=== PATIENT | female | born 1945 | race Caucasian/White ===

== ENCOUNTER → 2019-04-06 06:16 | Outpatient (CLI) | payer MEDICARE, MEDICAID, SELFPAY ==
--- NOTE | 2019-04-06 | CA_ITS ---
APPROVED REPORT Exam: Pharmacologic Technologist: kwan hernandez, Ht: 5 ft 1 in Wt: 110 lbs BSA: 1.47 m2 HR: 67 bpm BP: 139/67 mmHg Rhythm: NSR Indications: SOB, Fatigue Medical History Medications: Clonidine,,,,, Simvastatin,,,,, Asa,,,,, Carvedilol,,,,, Norvasc,,,,, Plavix,,,,, OmPERAZOLE,,,,, Stress Test Details Test: LEXISCAN HR Resting HR: 71 bpm Max Heart Rate (APMHR): 147 bpm Max HR Achieved: 105 bpm Target HR (85% APMHR): 124 bpm % of APMHR: 71 Recovery HR: 98 bpm BP Resting BP: 139/67 mmHg Max BP: 156/74 mmHg Recovery BP: 138.0/72.0 mmHg ECG Clinical Exercise duration: 04:03 min Highest Stage Achieved: Exercise capacity: 1.0 METs Stress ECG Conclusion SYMPTOMS: SOA AND MALAIAE,BUT NO CHEST PAIN. NO ARRHYTHMIAS/ECTOPY. NO SIGNIFICANT ST-T CHANGES. UNREMARKABLE LEXISCAN STRESS. MYOVIEW IMAGES REPORTED SEPARATELY. Electronically signed by : Elio Shine, 04/12/2019 11:42:20
--- NOTE | 2019-04-06 06:32 | NM_ITS ---
APPROVED REPORT Exam: Nuclear Stress Test NM EXAM: Myocardial Perfusion REST/STRESS Imaging Protocol: Rest Tc-99m/Stress Tc-99m 1 day Resting Data Rest SPECT myocardial perfusion imaging was performed in supine position 30 minutes following the intravenous injection of 10.88 mCi of tc99 Time of rest injection: 0643 The images were gated to evaluate regional wall motion and calculate left ventricular ejection fraction. Administration Route: IV Administration Site: Left AC Pharmacologic Stress Pharmacologic stress test was performed by injecting Regadenoson 0.4 mg IV push followed by the intravenous injection of 31.1 mCi of Tc-99m Tetrofosmin. Time of stress injection: 0820 Administration Route: IV Administration Site: Left AC Heart Rate at time of stress injection: 96 bpm. Gated Stress SPECT was performed 45 minutes after stress injection. The images were gated to evaluate regional wall motion and calculate left ventricular ejection fraction. Nuclear Conclusion Uniform myocardial activity with both stress and rest gated images calculated ejection fraction of 62% with normal wall motion No scintigraphic evidence of myocardial ischemia with normal ejection fraction and normal wall motion Electronically signed by : Elio Shine, 04/07/2019 13:29:39
--- NOTE | 2019-04-06 09:53 | HMH.ITSHM ---
Current Home Medications as stated by this patient Cris Delgado or advertising account representative. [] plavix norvasc omeprazole carvedilol asa simvastatin clonidine
== END ==
PROVIDERS: PCP Internal Medicine Adolescent Medicine; Visit Provider Internal Medicine Adolescent Medicine
DX: R06.09 Other forms of dyspnea (principal)
CPT/HCPCS: 78452; 93017; A9502; J2785

== ENCOUNTER → 2019-08-01 14:13 | Outpatient (CLI) | payer MEDICARE, MEDICAID, SELFPAY ==
--- NOTE | 2019-08-01 14:18 | CA_ITS ---
APPROVED REPORT Project Controls Specialist: CT Laterality: Bilateral Study Quality: Fair Indications: HEADACHE, CVA Surgery/Intervention Endarterectomy: right Doppler Spectral Velocity Analysis ECA (R) 69.00/1.60 cm/s ECA (L) 151.70/151.70 cm/s dICA (R) 77.10/25.70 cm/s dICA (L) 80.50/19.70 cm/s Chaitanya (R) 62.30/19.30 cm/s Chaitanya (L) 71.10/21.40 cm/s pICA (R) 62.00/18.70 cm/s pICA (L) 52.30/12.00 cm/s dCCA (R) 157.60/17.60 cm/s dCCA (L) 69.30/11.60 cm/s pCCA (R) 157.60/15.30 cm/s pCCA (L) 75.10/10.30 cm/s Vert (R) 68.90/15.80 cm/s Vert (L) 61.00/14.80 cm/s Conclusion Duplex evaluation demonstrates stenosis of the right proximal internal carotid artery <20% with PSV <140 cm/sec, EDV <100 cm/sec, and IC/CC Ratio <4.0. Duplex evaluation demonstrates stenosis of the left proximal internal carotid artery in the range of 20-49% with PSV <140 cm/sec, EDV <100 cm/sec, and IC/CC Ratio <4.0. Duplex evaluation demonstrates antegrade flow of the bilateral Vertebral Arteries. Electronically signed by : William Hung MD 08/04/2019 17:05:21
[2019-08-01 15:17] LABS: Basophils # 0.1 K/mm3 (0-0.2); Basophils % 0.7 % (0.1-2.0); Eosinophils # 0.6 K/mm3 (0.0-0.4); Eosinophils % 7.5 % (0.1-12.0); Hematocrit 44.3 % (37.0-47.0); Hemoglobin 14.2 g/dL (12.2-16.2); Lymphocytes # 1.3 K/mm3 (0.7-4.5); Lymphocytes % 17.1 % (10-50); Mean Corpuscular Hemoglobin 31.9 pg (27.0-31.2); Mean Corpuscular Volume 99.8 fl (81-99); Mean Platelet Volume 8.6 fl (7.4-10.4); Monocytes # 0.5 K/mm3 (0.1-1.0); Neutrophils % 67.7 % (37.0-80.0); Platelet Count 253 K/mm3 (142-424); Red Blood Count 4.44 M/mm3 (4.20-5.40); Red Cell Distribution Width 14.1 % (11.5-17.5); White Blood Count 7.4 K/mm3 (4.8-10.8)
[2019-08-01 16:10] LABS: Anion Gap 14.2 mEq/L (5-15); Blood Urea Nitrogen 32 mg/dL (7-18); Calcium 8.3 mg/dL (8.5-10.1); Carbon Dioxide 27 mmol/L (21.0-32.0); Chloride 104 mmol/L (98-107); Creatinine,Serum 2.32 mg/dL (0.55-1.02); Estimated Glomerular Filt Rate 21 ml/min (>60); GFR (African American) 25 ML/MIN (>60); Glucose 140 mg/dL (74-106); Potassium 3.2 mmoL/L (3.5-5.1); Sodium 142 mmol/L (136-145)
[2019-08-01 18:16] LABS: Erythrocyte Sedimentation Rate 19 mm/hr (0-30)
== END ==
PROVIDERS: PCP Internal Medicine Adolescent Medicine; Visit Provider Internal Medicine Adolescent Medicine
DX: I65.23 Occlusion and stenosis of bilateral carotid arteries (principal); R51 Headache; I63.9 Cerebral infarction, unspecified
CPT/HCPCS: 36415; 80048; 85025; 85651; 93880

== ENCOUNTER → 2020-12-18 10:39 | Outpatient (CLI) | payer MEDICARE, MEDICAID, SELFPAY ==
[2020-12-18 13:46] LABS: Basophils # 0.1 K/mm3 (0-0.2); Basophils % 1.1 % (0.1-2.0); Eosinophils # 0.7 K/mm3 (0.0-0.4); Eosinophils % 7.5 % (0.1-12.0); Hematocrit 43.5 % (37.0-47.0); Hemoglobin 14.1 g/dL (12.2-16.2); Lymphocytes # 1.5 K/mm3 (0.7-4.5); Lymphocytes % 15.9 % (10-50); Mean Corpuscular HGB Conc 32.4 g/dL (31.8-35.4); Mean Platelet Volume 7.9 fl (7.4-10.4); Monocytes # 0.5 K/mm3 (0.1-1.0); Monocytes % 5.5 % (1.7-9.3); Neutrophils # 6.5 K/mm3 (1.8-7.8); Platelet Count 224 K/mm3 (142-424); Red Blood Count 4.26 M/mm3 (4.20-5.40); Red Cell Distribution Width 13.8 % (11.5-17.5); White Blood Count 9.3 K/mm3 (4.8-10.8)
[2020-12-18 13:52] LABS: Alanine Aminotransferase 23 U/L (12-78); Albumin Level 3.8 g/dl (3.5-5.0); Albumin/Globulin Ratio 1.3 (1.1-1.8); Alkaline Phosphatase 85 U/L (38-126); Anion Gap 13.5 mEq/L (5-15); Aspartate Amino Transferase 28 U/L (14-36); Bilirubin,Total 0.4 mg/dl (0.2-1.3); Blood Urea Nitrogen 26 mg/dl (7-17); Calcium 8.8 mg/dl (8.4-10.2); Carbon Dioxide 28 mmol/L (22.0-30.0); Chloride 105 mmol/L (98-107); Estimated Glomerular Filt Rate 21 ml/min (>60); GFR (African American) 25 ML/MIN (>60); Globulin 2.9 g/dL (1.3-3.2); Glucose 86 mg/dl (74-100); Phosphorous 4.8 mg/dl (2.5-4.5); Potassium 4.5 mmoL/L (3.5-5.1); Sodium 142 mmol/L (136-145); Total Protein,Serum 6.7 g/dl (6.3-8.2)
[2020-12-18 14:09] LABS: 25-OH Vitamin D, Total 43.5 ng/mL (30-100)
== END ==
PROVIDERS: Visit Provider Internal Medicine Adolescent Medicine
DX: N18.4 Chronic kidney disease, stage 4 (severe) (principal); Z86.2 Personal history of diseases of the blood and blood-forming organs and certain disorders involving the immune mechanism
CPT/HCPCS: 36415; 80053; 82306; 84100; 85025

== ENCOUNTER 2021-01-19 19:18 | Observation (INO) | payer MEDICARE, MEDICAID, SELFPAY ==
[2021-01-19] VITALS (7 sets, daily range): BP systolic 142–193; BP diastolic 79–96; PULSE 83–109; RESP 15–19; TEMP 36.7–36.8; O2SAT 92–99; BMI 22.6; BMI 27.4
--- NOTE | 2021-01-19 19:39 | CT_ITS ---
PROCEDURE INFORMATION: Exam: CT Cervical Spine Without Contrast Exam date and time: 01/19/2021 7:39 PM Age: 75 years old Clinical indication: Injury or trauma; Blunt trauma; Patient HX: Fall onto left side with bruising down left side, bruising on left side of face, swollen left eye TECHNIQUE: Imaging protocol: Computed tomography images of the cervical spine without contrast. Radiation optimization: All CT scans at this facility use at least one of these dose optimization techniques: automated exposure control; mA and/or kV adjustment per patient size (includes targeted exams where dose is matched to clinical indication); or iterative reconstruction. COMPARISON: US CA CAROTID DUPLEX BI 08/01/2019 2:36 PM FINDINGS: Bones/joints: Degenerative changes of the temporomandibular joints. No acute fracture or malalignment. Discs/Spinal canal/Neural foramina: Degenerative changes of the atlantoaxial articulation. Multilevel degenerative disc disease, including at the C3-C4 where there is moderate posterior disc osteophyte complex, causing ventral thecal sac indentation and moderate disc space narrowing at the C4-C5 level. Multilevel bilateral facet and uncovertebral arthropathy. Lungs: Lung apices are normal. Vasculature: Atherosclerotic vascular disease. Soft tissues: Normal. IMPRESSION: No acute fracture or malalignment.
--- NOTE | 2021-01-19 19:39 | XR_ITS ---
PROCEDURE INFORMATION: Exam: XR Chest Exam date and time: 01/19/2021 7:39 PM Age: 75 years old Clinical indication: Injury or trauma; Blunt trauma (contusions or hematomas); Patient HX: Fall onto left side with bruising down left side, bruising on left side of face, swollen left eye TECHNIQUE: Imaging protocol: XR of the chest. Views: 1 view. COMPARISON: CR CXR CHEST(2 VIEWS-NOT PORTABLE) 08/10/2014 1:17 AM FINDINGS: Lungs: Unremarkable. No consolidation. Pleural spaces: Unremarkable. No pleural effusion. No pneumothorax. Heart/Mediastinum: Aorta contain scattered calcified plaque. No cardiomegaly. Bones/joints: Unremarkable. IMPRESSION: No acute findings.
--- NOTE | 2021-01-19 19:39 | CT_ITS ---
PROCEDURE INFORMATION: Exam: CT Head Without Contrast Exam date and time: 01/19/2021 7:39 PM Age: 75 years old Clinical indication: Injury or trauma; Blunt trauma (contusions or hematomas); Consciousness not specified; Patient HX: Fall onto left side with bruising down left side, bruising on left side of face, swollen left eye TECHNIQUE: Imaging protocol: Computed tomography of the head without contrast. Radiation optimization: All CT scans at this facility use at least one of these dose optimization techniques: automated exposure control; mA and/or kV adjustment per patient size (includes targeted exams where dose is matched to clinical indication); or iterative reconstruction. COMPARISON: No relevant prior studies available. FINDINGS: Brain: Periventricular and subcortical white matter areas of hypoattenuation, likely chronic small vessel ischemic change, demyelination, or gliosis. Encephalomalacia within the right parafalcine frontal lobe. No mass, hemorrhage, or acute infarction. Cerebral ventricles: No ventriculomegaly. Paranasal sinuses: Minimal ethmoid sinus disease. Mastoid air cells: Normal as visualized. Vasculature: Atherosclerotic vascular disease. Bones/joints: Normal. Soft tissues: Left frontal and left periorbital soft tissue swelling/contusion. IMPRESSION: 1. No acute intracranial abnormality. 2. Left frontal and left periorbital soft tissue swelling/contusion.
--- NOTE | 2021-01-19 19:39 | XR_ITS ---
PROCEDURE INFORMATION: Exam: XR Left Hip Exam date and time: 01/19/2021 7:39 PM Age: 75 years old Clinical indication: Injury or trauma; Blunt trauma (contusions or hematomas); Hip; Patient HX: Fall onto left side with bruising down left side, bruising on left side of face, swollen left eye TECHNIQUE: Imaging protocol: XR Left hip. Views: 2 or 3 views hip with pelvis when performed. COMPARISON: No relevant prior studies available. FINDINGS: Bones/joints: Postoperative changes of the proximal right femur noted. No acute fracture or dislocation. Mild arthritic changes of the hip joints. Soft tissues: Unremarkable. Vasculature: Vascular calcifications are present. IMPRESSION: No acute fracture or dislocation.
--- NOTE | 2021-01-19 19:43 | CT_ITS ---
PROCEDURE INFORMATION: Exam: CT Maxillofacial Without Contrast Exam date and time: 01/19/2021 7:43 PM Age: 75 years old Clinical indication: Injury or trauma; Blunt trauma (contusions or hematomas); Patient HX: Fall onto left side with bruising down left side, bruising on left side of face, swollen left eye TECHNIQUE: Imaging protocol: Computed tomography images of the face without contrast. Radiation optimization: All CT scans at this facility use at least one of these dose optimization techniques: automated exposure control; mA and/or kV adjustment per patient size (includes targeted exams where dose is matched to clinical indication); or iterative reconstruction. COMPARISON: No relevant prior studies available. FINDINGS: Orbital cavity: Orbits are normal. Globes are unremarkable. Bones/joints: No acute fracture. Degenerative changes of the visualized upper cervical spine. Degenerative changes of the temporomandibular joints. Leftward deviation of the bony nasal septum. Paranasal sinuses: Normal. No air-fluid levels. Soft tissues: Left frontal and left periorbital soft tissue swelling/contusion. Vasculature: Atherosclerotic vascular disease. IMPRESSION: 1. Left frontal and left periorbital soft tissue swelling/contusion. 2. No acute fracture.
[2021-01-19 19:59] LABS: Basophils # 0.1 K/mm3 (0-0.2); Basophils % 0.4 % (0.1-2.0); Eosinophils # 0.2 K/mm3 (0.0-0.4); Hematocrit 47.9 % (37.0-47.0); Hemoglobin 15.8 g/dL (12.2-16.2); Lymphocytes % 4.8 % (10-50); Mean Corpuscular HGB Conc 33.1 g/dL (31.8-35.4); Mean Corpuscular Hemoglobin 33.3 pg (27.0-31.2); Mean Corpuscular Volume 100.8 fl (81-99); Mean Platelet Volume 8.6 fl (7.4-10.4); Monocytes # 0.9 K/mm3 (0.1-1.0); Monocytes % 4.2 % (1.7-9.3); Neutrophils # 18.7 K/mm3 (1.8-7.8); Neutrophils % 89.7 % (37.0-80.0); Platelet Count 208 K/mm3 (142-424); Red Blood Count 4.76 M/mm3 (4.20-5.40); Red Cell Distribution Width 13.6 % (11.5-17.5); White Blood Count 20.8 K/mm3 (4.8-10.8)
[2021-01-19 20:00] LABS: MANUAL DIFFERENTIAL MANUAL DIFFERENTIAL (MANUAL DIFF)
--- NOTE | 2021-01-19 20:01 | CT_ITS ---
PROCEDURE INFORMATION: Exam: CT Thoracic Spine Without Contrast Exam date and time: 01/19/2021 8:01 PM Age: 75 years old Clinical indication: Injury or trauma; Blunt trauma (contusions or hematomas); Patient HX: Fall onto left side with bruising down left side, bruising on left side of face, swollen left eye TECHNIQUE: Imaging protocol: Computed tomography images of the thoracic spine without contrast. Radiation optimization: All CT scans at this facility use at least one of these dose optimization techniques: automated exposure control; mA and/or kV adjustment per patient size (includes targeted exams where dose is matched to clinical indication); or iterative reconstruction. COMPARISON: No relevant prior studies available. FINDINGS: Vertebrae: Diffuse osteopenia. No fracture. T1-T2: to T12-L1: No significant disc protrusion. No severe spinal canal stenosis. Mild multilevel degenerative changes without significant neural foraminal narrowing. Other findings: Biapical scarring changes. Coronary arteries and aorta contain scattered calcified plaque. IMPRESSION: 1. No fracture or dislocation. 2. Diffuse osteopenia with mild multilevel degenerative changes. 3. Atherosclerotic disease.
--- NOTE | 2021-01-19 20:01 | CT_ITS ---
PROCEDURE INFORMATION: Exam: CT Lumbar Spine Without Contrast Exam date and time: 01/19/2021 8:01 PM Age: 75 years old Clinical indication: Injury or trauma; Blunt trauma (contusions or hematomas); Patient HX: Fall onto left side with bruising down left side, bruising on left side of face, swollen left eye TECHNIQUE: Imaging protocol: Computed tomography images of the lumbar spine without contrast. Radiation optimization: All CT scans at this facility use at least one of these dose optimization techniques: automated exposure control; mA and/or kV adjustment per patient size (includes targeted exams where dose is matched to clinical indication); or iterative reconstruction. COMPARISON: No relevant prior studies available. FINDINGS: Tubes, catheters and devices: The bladder is collapsed around the Pierre catheter. Small pockets of air are present in the bladder. Vertebrae: Diffuse osteopenia. No acute fracture. L1-L2: to L5-S1: No significant disc protrusion. No severe spinal canal stenosis. No significant neural foraminal narrowing. Mild to moderate multilevel degenerative changes most pronounced at L2-L3 and L4-L5. Kidneys and ureters: Both kidneys are atrophic. Stomach and bowel: Sigmoid colon diverticulosis. Vasculature: Abdominal aorta and its major branches contain scattered calcified plaque. There is a 4.0 x 3.5 cm infrarenal abdominal aortic aneurysm. Soft tissues: Unremarkable. IMPRESSION: 1. No acute fracture or dislocation. 2. Diffuse osteopenia with [id number] multilevel degenerative changes most pronounced at L4-L5. 3. Sigmoid colon diverticulosis. 4. 4.0 x 3.5 cm infrarenal abdominal aortic aneurysm.
[2021-01-19 20:06] LABS: Alanine Aminotransferase 35 U/L (12-78); Albumin Level 4.4 g/dl (3.5-5.0); Albumin/Globulin Ratio 1.2 (1.1-1.8); Alkaline Phosphatase 122 U/L (38-126); Amylase 106 U/L (30-110); Anion Gap 14.3 mEq/L (5-15); Aspartate Amino Transferase 73 U/L (14-36); Bilirubin,Total 0.9 mg/dl (0.2-1.3); Blood Urea Nitrogen 43 mg/dl (7-17); Calcium 9.2 mg/dl (8.4-10.2); Carbon Dioxide 27 mmol/L (22.0-30.0); Chloride 103 mmol/L (98-107); Creatinine Clearance Estimated 23 mL/min (50-200); Estimated Glomerular Filt Rate 21 ml/min (>60); GFR (African American) 25 ML/MIN (>60); Globulin 3.6 g/dL (1.3-3.2); Glucose 151 mg/dl (74-100); Lipase 88 U/L (23-300); Potassium 4.3 mmoL/L (3.5-5.1); Sodium 140 mmol/L (136-145)
[2021-01-19 20:07] LABS: Lactic Acid 1.8 mmol/L (0.7-2.1)
[2021-01-19 20:12] LABS: Lymphocytes % 3 % (10-50); Monocytes % 4 % (2-9); Neutrophils % 91 % (42-76); Total Cells Counted 100
[2021-01-19 20:13] LABS: Macrocytosis 1+; Platelet Estimate Normal
[2021-01-19 20:19] LABS: Troponin I 0.04 ng/ml (0.00-0.034)
--- NOTE | 2021-01-19 20:19 | ECG_ITS ---
APPROVED REPORT Exam: Resting ECG HR:101 bpm ECG Measurements Heart Rate 101 AXES ME 178 P 66 QRSd 78 QRS 49 QT 372 T 84 QTc 482 Conclusion Sinus tachycardia Possible Left atrial enlargement Low voltage QRS Nonspecific ST and T wave abnormality Abnormal ECG Electronically signed by : Nas Marques, 01/21/2021 22:04:14
[2021-01-19 20:23] LABS: T4 (Thyroxine) 11.7 ug/dl (5.53-11.0)
[2021-01-19 20:37] LABS: Thyroid Stimulating Hormone 1.93 uIU/mL (0.465-4.68)
--- NOTE | 2021-01-19 20:40 | HMH.EDFALL ---
ED Disposition Clinical Impression: AAA (abdominal aortic aneurysm) without rupture, Renal insufficiency Rhabdomyolysis Qualifiers: Rhabdomyolysis type: traumatic Encounter type: initial encounter Qualified Code(s): T79.6XXA - Traumatic ischemia of muscle, initial encounter Fall Qualifiers: Encounter type: initial encounter Qualified Code(s): W19.XXXA - Unspecified fall, initial encounter Osteopenia Qualifiers: Osteopenia location: multiple sites Qualified Code(s): M85.89 - Other specified disorders of bone density and structure, multiple sites Concussion without loss of consciousness Qualifiers: Encounter type: initial encounter Qualified Code(s): S06.0X0A - Concussion without loss of consciousness, initial encounter Disposition: Admitted as Observation Condition on Discharge: Fair - Critical Care Critical Care Time: No Attestation: On 01/19/21, the high probability of a clinically significant, sudden or life threatening deterioration of the following system(s) required my full and direct attention, intervention and personal management. The time I documented below is in addition to time spent performing reported procedures but includes the following listed in this critical care notation. Medical Decision Making - Medical Records Medical records reviewed: Yes: I reviewed the patient's medical records. - Juanjo Inquiry Pt receiving controlled substance: No Vital Signs: 01/19/21 19:25 Temperature 98.3 F Temperature Source Oral Pulse Rate [Right] 103 H Respiratory Rate 19 Blood Pressure [Right Arm] 142/82 H Blood Pressure Mean [Right Arm] 102 Blood Pressure Source [Right Arm] Automatic Cuff 02 Sat by Pulse Oximetry 95 Oxygen Delivery Method Nasal Cannula Oxygen Flow Rate (LPM) 2 - Lab Data Lab results reviewed: Yes: I reviewed the patient's lab results. Lab Results 01/19/21 19:50: WBC 20.8 H*, RBC 4.76, Hgb 15.8, Hct 47.9 H, MCV 100.8 H, MCH 33.3 H, MCHC 33.1, RDW 13.6, Plt Count 208, MPV 8.6, Neut % (Auto) 89.7 H, Lymph % (Auto) 4.8 L, [place] % (Auto) 4.2, Eos % (Auto) 1.0, Baso % (Auto) 0.4, Neut # (Auto) 18.7 H, Lymph # (Auto) 1.0, [place] # (Auto) 0.9, Eos # (Auto) 0.2, Baso # (Auto) 0.1, Total Counted 100, Neutrophils % (Manual) 91 H, Band Neutrophils % 1.0, Lymphocytes % (Manual) 3 L, Atypical Lymphs % 1.0, Monocytes % (Manual) 4, Platelet Estimate Normal, Macrocytosis 1+ 01/19/21 19:50: Sodium 140, Potassium 4.3, Chloride 103, Carbon Dioxide 27, Anion Gap 14.3, BUN 43 H, Creatinine 2.30 H, Estimated Creat Clear 23, Estimated GFR 21 L, Est GFR ( Amer) 25 L, Glucose 151 H, Calcium 9.2, Total Bilirubin 0.9, AST 73 H, ALT 35, Alkaline Phosphatase 122, Troponin I 0.04 H, Total Protein 8.0, Albumin 4.4, Globulin 3.6 H, Albumin/Globulin Ratio 1.2, Amylase 106, Lipase 88, TSH 1.93, Thyroxine (T4) 11.7 H 01/19/21 19:50: Lactate 1.8 01/19/21 19:50: Total Creatine Kinase 2749 H* 01/19/21 20:05: Urine Color Yellow, Urine Appearance Clear, Urine pH 5.5, Ur Specific [place] 1.015, Urine Protein Negative, Urine Glucose (UA) Negative, Urine Ketones Negative, Urine Blood 3+, Urine Nitrate Negative, Urine Bilirubin Negative, Urine Urobilinogen 0.2, Ur Leukocyte Esterase Negative, Urine RBC Occasional, Urine WBC Occasional, Ur Squamous Epith Cells Occasional, Urine Bacteria Trace Result diagrams: 01/19/21 19:50 01/19/21 19:50 Orders (Tests/Meds): ED MEDICATIONS Generic Name Dose Route Start Last Admin Trade Name Freq PRN Reason Stop Dose Admin Sodium Chloride 2,000 mls @ 999 mls/hr 01/19/21 20:30 01/19/21 20:32 Sod Chlor 0.9% 1000ml Bag IV 01/19/21 22:30 999 mls/hr .Q2H1M TAYLOR Administration ORDERS Category Date Time Status Full Resp Panel w/COVID ([facility]) Routine Lab 01/19/21 21:33 Received Troponin I Q3H Lab 01/19/21 22:45 Ordered Troponin I Q3H Lab 01/20/21 01:45 Ordered Blood Culture Stat Micro 01/19/21 19:50 Received - Radiology Data #1 Image(s): Chest, Pelvis Image
[2021-01-19 20:48] LABS: Creatine Kinase 2749 U/L (30-135)
[2021-01-19 21:32] LABS: Microscopic, Urine URINE MICROSCOPIC (MICROSCOPIC)
[2021-01-19 21:33] LABS: Appearance,Urine CLEAR (Clear); Bilirubin,Urine Negative (Negative); Blood, Urine 3+ (Negative); Color,Urine YELLOW (Yellow); Glucose,Urine (UA) Negative (Negative); Ketones,Urine Negative (Negative); Leukocyte Esterase,Urine Negative (Negative); Nitrate,Urine Negative (Negative); PH,Urine 5.5 (5.0-8.5); Protein,Urine Negative (Negative); Specific Gravity, Urine 1.015 (1.005-1.030); Urobilinogen,Urine 0.2 EU/dl (0.2)
[2021-01-19 21:36] LABS: Adenovirus,PCR Not Detected (NotDetected); Bordetella Pertussis Not Detected (NotDetected); Chlamydophila Pneumoniae, PCR Not Detected (NotDetected); Coronavirus 19, PCR Not Detected (NotDetected); Coronavirus 229E Not Detected (NotDetected); Coronavirus NL63 Not Detected (NotDetected); Coronavirus OC43 Not Detected (NotDetected); Coronovirus HKU1,PCR Not Detected (NotDetected); Human Metapneumovirus Not Detected (NotDetected); Influenza A, PCR Not Detected (NotDetected); Influenza AH1, 2009 Not Detected (NotDetected); Influenza AH1, PCR Not Detected (NotDetected); Influenza AH3,PCR Not Detected (NotDetected); Influenza B, PCR Not Detected (NotDetected); Mycoplasma Pneumoniae, PCR Not Detected (NotDetected); Parainfluenza 1, PCR Not Detected (NotDetected); Parainfluenza 2, PCR Not Detected (NotDetected); Parainfluenza 3, PCR Not Detected (NotDetected); Parainfluenza 4, PCR Not Detected (NotDetected); Respiratory Syncytial Virus Not Detected (NotDetected); Rhinovirus/Enterovirus Not Detected (NotDetected)
[2021-01-19 21:45] LABS: Bacteria,Urine Trace /lpf; RBC,Urine Occasional #/hpf (0-3); Squamous Epithelial Cell,Urine Occasional #/hpf (0-5); WBC,Urine Occasional #/hpf (0-3)
--- NOTE | 2021-01-19 23:23 | PC.NURSE ---
pt arrived to floor via stretcher from ed w/staff at 0423
[2021-01-19 23:46] LABS: Troponin I 0.04 ng/ml (0.00-0.034)
[2021-01-20] VITALS (11 sets, daily range): BP systolic 94–158; BP diastolic 54–88; PULSE 80–103; RESP 17–21; TEMP 36.7–37.1; O2SAT 92–97; BMI 20.7
[2021-01-20 02:05] LABS: Troponin I 0.05 ng/ml (0.00-0.034)
--- NOTE | 2021-01-20 02:58 | PC.NURSE ---
A&OX4. TOLERATING 2LNC WELL. PT HAS MANY BRUISES AND SKIN TEARS PRESENT TO BLE. DRESSING APPLIED. WOUND PICTURES ON CHART. PT X2 ASSIST AT THIS TIME. F/C PRESENT DRAINING DARK YELLOW URINE. PT HAS NOT C/O ANY PAIN SINCE ARRIVAL. PT HAS SLEPT SINCE ARRIVAL TO FLOOR. BED ALARM APPLIED FOR SAFETY. VSS WILL CONTINUE TO MONITOR.
[2021-01-20 06:51] LABS: Chloride 110 mmol/L (98-107); Potassium 3.7 mmoL/L (3.5-5.1); Sodium 141 mmol/L (136-145)
[2021-01-20 06:54] LABS: Anion Gap 12.7 mEq/L (5-15); Blood Urea Nitrogen 31 mg/dl (7-17); Carbon Dioxide 22 mmol/L (22.0-30.0); Creatinine Clearance Estimated 24 mL/min (50-200); Estimated Glomerular Filt Rate 31 ml/min (>60); GFR (African American) 38 ML/MIN (>60)
[2021-01-20 06:55] LABS: Glucose 96 mg/dl (74-100)
[2021-01-20 07:02] LABS: Basophils # 0.1 K/mm3 (0-0.2); Basophils % 0.4 % (0.1-2.0); Eosinophils # 0.1 K/mm3 (0.0-0.4); Eosinophils % 1.1 % (0.1-12.0); Hematocrit 39.9 % (37.0-47.0); Lymphocytes # 1.2 K/mm3 (0.7-4.5); Lymphocytes % 9.6 % (10-50); Mean Corpuscular HGB Conc 32.1 g/dL (31.8-35.4); Mean Corpuscular Hemoglobin 32.8 pg (27.0-31.2); Mean Corpuscular Volume 102.3 fl (81-99); Mean Platelet Volume 8.5 fl (7.4-10.4); Monocytes # 0.7 K/mm3 (0.1-1.0); Monocytes % 5.4 % (1.7-9.3); Neutrophils # 10.4 K/mm3 (1.8-7.8); Neutrophils % 83.4 % (37.0-80.0); Platelet Count 149 K/mm3 (142-424); Red Cell Distribution Width 13.2 % (11.5-17.5); White Blood Count 12.5 K/mm3 (4.8-10.8)
[2021-01-20 07:04] LABS: Hemoglobin 12.8 g/dL (12.2-16.2)
--- NOTE | 2021-01-20 07:12 | HMH.PHAVTE ---
[facility] Pharmacy VTE Monitoring - Patient Demographics Admission date: 01/19/21 Report Date: 01/20/21 Time: 07:12 Allergies/Adverse Reactions: Patient Allergies PENICILLIN Allergy (Intermediate, Uncoded 08/03/17 15:17) I-RASH Height: 1.57 m Weight: 50.972 kg Patient Problems: Current Active Problems Rhabdomyolysis (Acute) Fall (Acute) Osteopenia (Acute) AAA (abdominal aortic aneurysm) without rupture (Acute) Concussion without loss of consciousness (Acute) Renal insufficiency (Acute) - VTE Risk Labs: VTE Related Lab Results Hgb 12.8 g/dL (12.2-16.2) D 01/20/21 06:25 Hct 39.9 % (37.0-47.0) 01/20/21 06:25 Plt Count 149 K/mm3 (142-424) D 01/20/21 06:25 BUN 43 mg/dl (7-17) H 01/19/21 19:50 Creatinine 2.30 mg/dl (0.52-1.04) H 01/19/21 19:50 Estimated Creat Clear 23 mL/min (50-200) 01/19/21 19:50 - Prophylaxis VTE Prophylaxis Ordered?: Yes Types of VTE Prophylaxis: TEDS Knee High Location of Applied Device: Bilateral Lower Extremeties
[2021-01-20 07:17] LABS: Creatine Kinase 2709 U/L (30-135)
--- NOTE | 2021-01-20 07:19 | PC.WOUNDNOTE ---
RED KNOT TO OUTER L FOOT BRUISING AND SKIN TEAR TO OUTER L KNEE SKIN TEAR TO R LOWER LEG BRUISING TO BLE BRUISING TO POSTERIOR L LEG BRUISING TO UPPER THIGH BRUISING TO R ARM BRUISING TO L HAND BRUISING TO L ELBOW BRUISING TO L SIDE OF FACE, +2 NONPITTING EDEMA BRUISING TO L SHOULDER
--- NOTE | 2021-01-20 08:12 | HMH.HP ---
*Admission Date: 01/19/21 *Chief complaint: Fall at home *History of present illness: 75-year-old white female who has had a stroke and usually uses a walker to get around the house but frequently does not comply with this need for her. Yesterday morning she was walking around her house without her walker and tripped, fell down face forward. Was unable to get up and by the time her family did there baseline checks on her she had been down for 12 hours. Brought to the emergency department. Extensive x-ray testing showed no evidence of facial fracture or other fractures of pelvis or other bones. However, she was found to have acute kidney injury, rhabdomyolysis and was admitted to hospital for IV fluids and further evaluation. This morning she feels better, does note minimal pain around her face but denies other long bone pain. [facility] History I have reviewed the patient's past medical history: Yes Medical History: Reports:: Cerebrovascular Accident, Hyperlipidemia, Hypertension Denies:: Diabetes Mellitus Type 1, Diabetes Mellitus Type 2 *Have you ever received a pneumonia vaccine?: No *Have you received a flu vaccine this season?: No Other Surgeries: Yes: Tubal Ligation - *Social History Smoking Status: Former smoker Tobacco Type: cigarettes Alcohol Intake: never *Occupational Status:: retired *Travel in the last 8 weeks: None Family Hx:: No significant family history Review of Systems - Review of Systems Review of systems:: pertinent systems reviewed and negative unless documented below 10 point review of systems negative except outlined in HPI - *Neurologic Denies dizziness, Denies localized weakness, Denies headache(s), Denies tingling/numbness/burning sensations, Denies seizure-like activity Meds Home Medications Medication Instructions Recorded Confirmed Type Albuterol Sulfate [Proventil-HFA 2 puffs IH QID 01/19/21 01/19/21 History 90mcg/puff Inh] Amlodipine Besylate 5 mg PO DAILY 01/19/21 01/19/21 History Aspirin [Aspirin 81mg chewable 81 mg PO DAILY 01/19/21 01/19/21 History tab] Atorvastatin Calcium [Lipitor 80mg 80 mg PO HS 01/19/21 01/19/21 History Tablet*] Budesonide/Formoterol Fumarate 2 puffs IH BID 01/19/21 01/19/21 History [Symbicort 160-4.5 Mcg Inhaler] Clopidogrel Bisulfate [Plavix 75mg 75 mg PO DAILY 01/19/21 01/19/21 History Tab] Furosemide [Lasix 40mg tab] 40 mg PO DAILY 01/19/21 01/19/21 History Nitrofurantoin Monohyd/M-Cryst 100 mg PO DAILY 01/19/21 01/19/21 History [Macrobid 100 mg Capsule] Omeprazole [Omeprazole 40mg 40 mg PO DAILY 01/19/21 01/19/21 History Capsule] Tramadol HCl [Tramadol 50mg 50 mg PO BID 01/19/21 01/19/21 History Tab] carvediloL [Coreg 25mg Tablet] 25 mg PO BID 01/19/21 01/19/21 History Allergies Allergy/AdvReac Type Severity Reaction Status Date / Time Penicillins Allergy Rash Verified 01/20/21 07:57 Exam Vital signs and Labs for Last 24 Hours: Temp Pulse Resp BP Pulse Ox 98.3 F 94 H 19 125/72 94 L 01/20/21 04:00 01/20/21 04:00 01/20/21 04:00 01/20/21 04:00 01/20/21 04:00 Laboratory Results - last 24 hr 01/19/21 19:50: WBC 20.8 H*, RBC 4.76, Hgb 15.8, Hct 47.9 H, MCV 100.8 H, MCH 33.3 H, MCHC 33.1, RDW 13.6, Plt Count 208, MPV 8.6, Neut % (Auto) 89.7 H, Lymph % (Auto) 4.8 L, [place] % (Auto) 4.2, Eos % (Auto) 1.0, Baso % (Auto) 0.4, Neut # (Auto) 18.7 H, Lymph # (Auto) 1.0, [place] # (Auto) 0.9, Eos # (Auto) 0.2, Baso # (Auto) 0.1, Total Counted 100, Neutrophils % (Manual) 91 H, Band Neutrophils % 1.0, Lymphocytes % (Manual) 3 L, Atypical Lymphs % 1.0, Monocytes % (Manual) 4, Platelet Estimate Normal, Macrocytosis 1+ 01/19/21 19:50: Sodium 140, Potassium 4.3, Chloride 103, Carbon Dioxide 27, Anion Gap 14.3, BUN 43 H, Creatinine 2.30 H, Estimated Creat Clear 23, Estimated GFR 21 L, Est GFR ( Amer) 25 L, Glucose 151 H, Calcium 9.2, Total Bilirubin 0.9, AST 73 H, ALT 35, Alkaline Phosph
--- NOTE | 2021-01-20 10:38 | HMH.PHAINT ---
MEDICATION RECONCILIATION COMPLETED ON PATIENT USING EXTERNAL FILL HISTORY FROM PHARMACY. -MANNY RODRIGES, TONOD
--- NOTE | 2021-01-20 10:38 | HMH.OTEV ---
OT Inpatient Evaluation Rehab OT IP Evaluation Start: 01/20/21 08:11 Freq: ONCE Status: Complete Protocol: Document 01/20/21 10:34 [facility] (Rec: 01/20/21 10:38 [facility] [id number]) Rehab OT IP Assessment Subjective History Pt oriented x 3 on arrival. Pt agreeable to engage in therapy evaluation. Pt was admitted via ED on 01/19/21 due to a fall at home. Pt was on the floor for 12 hours before she was found by family. Pt has a past medical history of CVA, hyperlipidemia, and HTN. Pt reports she lived at home by herself prior to fall. She claims she was independent with dressing, feeding, and bathing. She reports she used her walker at times . Her family (cousin) would come in and assist with IADLS such as cooking and cleaning. Subjective I am sore. Objective Patient Orientation Person,Place,Birthday Upper Extremity Gross ROM WFL Bed Mobility bed mobility-scooting,bed mobility - supine/sit,bed mobility - rolling Assist Level Minimal x 1 (25% assist) Transfer Training Sit/Stand Transfer Assist Level Minimal x 1 (25% assist) Rehab OT IP prob,goals,plan Problems Date of Evaluation: 01/20/21 OT IP Problems Bed Mobility,Transfers,Gait, Balance,Self care,Safety Rehab Potential Rehab Potential Good Equipment Needs Assistive Devices Rolling / Wheeled Walker Plan OT intervention Plan Bed Mobility,Transfers,Gait, Balance,Self care,Safety, Therapeutic Exercise OT Plan Frequency BID Duration LOS Discharge Goals Bed Mobility Ability Standby Assistance Sit to Stand Chair Transfer Ability Contact Guard/Hand Hold Chair Transfer Ability Contact Guard/Hand Hold Chair Transfer Technique Sit to/from Ambulatory Chair Transfer Assistive Devices Rolling Walker Feeding Ability Independent Lower Body Dressing Ability Assistance X1 Upper Body Dressing Ability Standby Assistance Bathing Ability Assistance x1 Performing Toilet Hygiene Ability Standby Assistance Overall Commode/Toilet Transfer Ability S
--- NOTE | 2021-01-20 10:45 | HMH.PTEV ---
Physical Therapy Evaluation Rehab PT IP Evaluation Start: 01/20/21 08:11 Freq: ONCE Status: Active Protocol: Document 01/20/21 10:39 [facility] (Rec: 01/20/21 10:45 [facility] [id number]) Subjective/History History History 75 yowf adm to [facility] after ground level fall at home with no fxs, but multiple contusions. She reports she lives alone, but has family to check on her and she is generally indepednent with all mobility. Subjective Subjective She reports pain in her L eye and L LE due to bruising. She also reports she knows she should use her walker at home for ambulation, but she doesn' t like to. Rehab PT IP Eval Objective Appearance Patient Behavior Appropriate Patient Orientation Person,Place,Time Difficulty following instructions none Speech Pattern Clear Ambulation Patient Able to Ambulate Yes Ambulation Observation IP General Gait Pattern Observation Wide Based Gait,Shuffling Step ,Decrease Stride Lngth (R), Decrease Stride Lngth (L) Ambulation Distance (feet) 20 Ambulation Assistive Device Rolling Walker Ambulation Ability Contact Guard/Hand Hold Balance Ability to Arise Able, uses arms to help Sitting Balance Steady, safe Standing Balance Steady, wide stance Dynamic Sitting Balance Ability Good Dynamic Standing Balance Ability Fair Transfers Bed Transfer Ability Contact Guard/Hand Hold Chair Transfer Ability Contact Guard/Hand Hold Sit to Stand Bed Transfer Ability Contact Guard/Hand Hold Sit to Stand Chair Transfer Ability Contact Guard/Hand Hold ROM All Extremities PT ROM Status WFL MMT All Extremities PT MMT WFL Rehab PT IP prob,goals,plan Problems Date of Evaluation: 01/20/21 PT IP Problems Bed Mobility,Transfers,Gait, Self care Rehab Potential Rehab Potential Good Plan PT Intervention Plan Bed Mobility,Transfers,Gait, Self care,Therapeutic Exercise PT Plan Frequency BID Duration LOS Discharge Goals Bed Transfer Ability Supervision/Stand by Sit to Stand Chair Transfer Ability Supervision/Stand by Ambulation Assistive Device Rolling Walker Ambulation Distance (feet) 40 Discharg
--- NOTE | 2021-01-20 11:20 | SW/DCPLANNER ---
Addendum entered by Lulu Anna 01/22/21 10:22: INSURANCE APPROVED MS ODELL TO GO TO [facility] AND SHE WILL GO VIA AMBULANCE... SON HAS BEEN NOTIFIED. Addendum entered by Lulu Anna 01/22/21 08:52: SENT UPDATES TO [facility] THIS MORNING, STILL HAVE NOT HEARD ANYTHING FROM THE INSURANCE COMPANY YET... PATIENT IS MEDICALLY READY ONCE WE GET AN APPROVAL.. PATIENT AND SON ARE IN AGREEMENT OF THE PLAN... Original Note: SPOKE WITH SON AND PATIENT THIS MORNING REGARDING DISCHARGE PLANNING... SON STATED SHE WILL NEED TO GO SOMEWHERE FOR SKILLED REHAB BECAUSE SHE HAS NO ONE TO STAY WITH HER AROUND THE CLOCK.. SHE WAS HESITANT AT FIRST BUT HAS AGREED TO GO SHORT TERM... THEY HAVE REQUESTED [facility] AND I SPOKE WITH BEATRIZ AND SHE STATED THEY DO HAVE A CONTRACT WITH HER [facility]... I SENT REFERRAL TO BE SENT INTO THE INSURANCE COMPANY FOR A HOPEFUL AUTHORIZATION.. PATIENT IS NOT READY TODAY WHAT COULD POSSIBLY BE IN THE NEXT COUPLE OF DAYS....
--- NOTE | 2021-01-20 19:23 | PC.NURSE ---
Pt has been pleasant this shift. Pierre cath remains in place. Pt has had x1 BM this shift. Pt has not c/o pain, N/V, or SOB this shift. No other acute changes or complaints at this time. Will continue to monitor.
[2021-01-21] VITALS (11 sets, daily range): BP systolic 104–131; BP diastolic 50–55; PULSE 60–90; RESP 17–18; TEMP 36.4–37.7; O2SAT 91–100; BMI 23.0
--- NOTE | 2021-01-21 04:43 | PC.NURSE ---
Patient admitted to floor for Rhabdo as patient fell and was discovered after being down for greater than 12 hours. Patient has numerous bruising on Face, shoulders, arms, hip and legs from the fall. Patient requested Tramadol 50 mg and Protonix, called Dr. Mcdowell and he ordered Tramadol 50 mg PRN TID for pain and Protonix 40 mg QHS. Patient oriented times four. Patient has Pierre Catheter and did not ambulate this shift. Pt has maintenace fluids 100 ml/hr of NS Will continue to monitor for any acute changes.
[2021-01-21 06:00] LABS: Basophils % 0.4 % (0.1-2.0); Eosinophils # 0.3 K/mm3 (0.0-0.4); Eosinophils % 2.7 % (0.1-12.0); Hematocrit 34.5 % (37.0-47.0); Lymphocytes # 1.4 K/mm3 (0.7-4.5); Lymphocytes % 14.9 % (10-50); Mean Corpuscular HGB Conc 32.9 g/dL (31.8-35.4); Mean Corpuscular Hemoglobin 33.7 pg (27.0-31.2); Mean Corpuscular Volume 102.4 fl (81-99); Mean Platelet Volume 8.2 fl (7.4-10.4); Monocytes # 0.6 K/mm3 (0.1-1.0); Monocytes % 6.4 % (1.7-9.3); Neutrophils # 7.3 K/mm3 (1.8-7.8); Neutrophils % 75.6 % (37.0-80.0); Platelet Count 144 K/mm3 (142-424); Red Blood Count 3.37 M/mm3 (4.20-5.40); Red Cell Distribution Width 13.1 % (11.5-17.5); White Blood Count 9.6 K/mm3 (4.8-10.8)
[2021-01-21 06:01] LABS: Chloride 112 mmol/L (98-107)
[2021-01-21 06:02] LABS: Potassium 3.9 mmoL/L (3.5-5.1); Sodium 140 mmol/L (136-145)
[2021-01-21 06:04] LABS: Alanine Aminotransferase 29 U/L (12-78); Alkaline Phosphatase 57 U/L (38-126); Anion Gap 5.9 mEq/L (5-15); Aspartate Amino Transferase 75 U/L (14-36); Bilirubin,Total 0.5 mg/dl (0.2-1.3); Blood Urea Nitrogen 28 mg/dl (7-17); Carbon Dioxide 26 mmol/L (22.0-30.0); Creatinine Clearance Estimated 27 mL/min (50-200); Estimated Glomerular Filt Rate 31 ml/min (>60); GFR (African American) 38 ML/MIN (>60)
[2021-01-21 06:05] LABS: Albumin Level 2.8 g/dl (3.5-5.0); Calcium 7.6 mg/dl (8.4-10.2); Creatine Kinase 1348 U/L (30-135); Globulin 2.8 g/dL (1.3-3.2); Glucose 108 mg/dl (74-100); Total Protein,Serum 5.6 g/dl (6.3-8.2)
[2021-01-21 06:10] LABS: Hemoglobin 11.4 g/dL (12.2-16.2)
--- NOTE | 2021-01-21 08:59 | HMH.ACPN2 ---
Internal Medicine - PN: Subj *Date: 01/21/21 *Time: 10:18 Interval history: Ms. Delgado did well overnight. Remains hemodynamically stable. Labs reviewed this morning, improvement in CK. Making good urine. Pierre still in place on rounds this morning. Denies shortness of breath, chest pain, nausea or vomiting. Continues to be quite weak. Is in bedside chair on rounds. Exam Vital signs and Labs for Last 24 Hours: Temp Pulse Resp BP Pulse Ox 98.0 F 60 17 124/55 L 97 01/21/21 07:38 01/21/21 07:38 01/21/21 07:38 01/21/21 07:38 01/21/21 07:38 Laboratory Results - last 24 hr 01/21/21 05:35: WBC 9.6, RBC 3.37 L, Hgb 11.4 L D, Hct 34.5 L, MCV 102.4 H, MCH 33.7 H, MCHC 32.9, RDW 13.1, Plt Count 144, MPV 8.2, Neut % (Auto) 75.6, Lymph % (Auto) 14.9, [place] % (Auto) 6.4, Eos % (Auto) 2.7, Baso % (Auto) 0.4, Neut # (Auto) 7.3, Lymph # (Auto) 1.4, [place] # (Auto) 0.6, Eos # (Auto) 0.3, Baso # (Auto) 0.0 01/21/21 05:35: Sodium 140, Potassium 3.9, Chloride 112 H, Carbon Dioxide 26, Anion Gap 5.9, BUN 28 H, Creatinine 1.60 H, Estimated Creat Clear 27, Estimated GFR 31 L, Est GFR ( Amer) 38 L, Glucose 108 H, Calcium 7.6 L, Total Bilirubin 0.5, AST 75 H, ALT 29, Alkaline Phosphatase 57, Total Creatine Kinase 1348 H* D, Total Protein 5.6 L D, Albumin 2.8 L D, Globulin 2.8, Albumin/Globulin Ratio 1.0 L I & O for Last 24 hours: Intake & Output 01/18/21 01/19/21 01/20/21 01/21/21 23:59 23:59 23:59 23:59 Intake Total 1999 / 1999 1080 / 1080 1340 / 1340 Output Total 1200 / 1650 800 / 800 Balance 1999 / 1999 -120 / -570 540 / 540 Weight 68.039 kg 50.972 kg 56.699 kg Narrative: - Constitutional no acute distress, thin; Extensive facial bruising around the left orbit both above and below, extending across the nasal bridge into the right side. No extraocular motion deficits. No scleral drainage or redness. - *Routine HEENT Exam Head: Present: abrasion, hematoma, facial swelling Eye: Present: EOMI, PERRL ENT: Present: mucous membranes moist - *Routine Neck Exam Present: supple. Absent: lymphadenopathy - *Routine Respiratory Exam Present: CTA bilaterally - *Routine Cardiovascular Exam Present: RRR - *Routine Abdominal Exam Present: soft, normoactive bowel sounds. Absent: tenderness - *Routine Extremities Exam Absent: cyanosis, clubbing, edema - *Routine Skin Exam Present: warm. Absent: rash - *Routine Neurological Exam Present: alert, oriented X3; Left face slightly drooping but this is an old finding. Left hemiparesis as previously noted from her sequela of stroke disease Assessment and Plan (1) Acute kidney injury Status: Acute Category: Medical Code(s): N17.9 - Acute kidney failure, unspecified (2) Sequelae, post-stroke Status: Acute Category: Medical Code(s): I69.30 - Unspecified sequelae of cerebral infarction (3) Fall Status: Acute Qualifiers: Encounter type: initial encounter Qualified Code(s): W19.XXXA - Unspecified fall, initial encounter Category: Medical Code(s): W19.XXXA - Unspecified fall, initial encounter (4) Rhabdomyolysis Status: Acute Qualifiers: Rhabdomyolysis type: traumatic Encounter type: initial encounter Qualified Code(s): T79.6XXA - Traumatic ischemia of muscle, initial encounter Category: Medical Code(s): M62.82 - Rhabdomyolysis (5) COPD (chronic obstructive pulmonary disease) Status: Chronic Category: Medical Code(s): J44.9 - Chronic obstructive pulmonary disease, unspecified (6) GERD (gastroesophageal reflux disease) Status: Chronic Category: Medical Code(s): K21.9 - Gastro-esophageal reflux disease without esophagitis (7) Essential hypertension Status: Chronic Category: Medical Code(s): I10 - Essential (primary) hypertension - Assessment and plan all Dx Assessment and Plan for all problems:: 75-year-old female with recent stroke. Fell at home developing mild rhabdomyolysis and
--- NOTE | 2021-01-21 10:30 | PC.NURSE ---
Received report from Mecca GagnonRN @ [id number]. Assumed care @ this time
--- NOTE | 2021-01-21 17:39 | PC.NURSE ---
No acute changes. Currently on room air. Denies being SOA. Has sat up in chair majority of afternoon, up w/ min assistance of staff, tolerated well. Skin intact. Scattered bruising to extremities and face. Pt has voided w/o difficulty since removal of crowley cath. Continent of bowels this shift. No needs voiced. Visitor @ bedside. Call marnie w/in reach. Safety in place.
[2021-01-22] VITALS: BP 120/56; PULSE 78; PULSE 80; RESP 18; TEMP 36.4; O2SAT 94
[2021-01-22 04:00] VITALS: PULSE 60
[2021-01-22 04:55] VITALS: BP 128/62; PULSE 78; RESP 18; TEMP 37.1; O2SAT 95
[2021-01-22 06:00] VITALS: BMI 23.0
--- NOTE | 2021-01-22 06:27 | PC.NURSE ---
Spoke with Dr. Kimball regarding removal of pts Heart Rate Monitor. Explained that there were not enough for every patient and would he allow this patient to d/c heart monitor. Stated that patient has not any ectopy, pt DNR and NSR throughout the duration of her stay. Dr. Kimball stated ok to d/c.
[2021-01-22 07:47] VITALS: BP 129/58; PULSE 76; RESP 18; TEMP 36.8; O2SAT 92
[2021-01-22 07:51] LABS: Chloride 115 mmol/L (98-107); Potassium 3.6 mmoL/L (3.5-5.1); Sodium 142 mmol/L (136-145)
[2021-01-22 07:53] LABS: Alanine Aminotransferase 35 U/L (12-78); Aspartate Amino Transferase 60 U/L (14-36); Blood Urea Nitrogen 22 mg/dl (7-17); Creatinine Clearance Estimated 29 mL/min (50-200); Estimated Glomerular Filt Rate 34 ml/min (>60); GFR (African American) 41 ML/MIN (>60)
[2021-01-22 07:54] LABS: Albumin Level 2.8 g/dl (3.5-5.0); Albumin/Globulin Ratio 0.9 (1.1-1.8); Alkaline Phosphatase 68 U/L (38-126); Anion Gap 7.6 mEq/L (5-15); Bilirubin,Total 0.5 mg/dl (0.2-1.3); Calcium 7.7 mg/dl (8.4-10.2); Carbon Dioxide 23 mmol/L (22.0-30.0); Glucose 96 mg/dl (74-100); Magnesium 1.6 mg/dl (1.6-2.3); Total Protein,Serum 5.8 g/dl (6.3-8.2)
[2021-01-22 07:55] LABS: Basophils % 0.3 % (0.1-2.0); Eosinophils # 0.4 K/mm3 (0.0-0.4); Eosinophils % 3.8 % (0.1-12.0); Hematocrit 36.5 % (37.0-47.0); Hemoglobin 11.7 g/dL (12.2-16.2); Lymphocytes # 1.1 K/mm3 (0.7-4.5); Lymphocytes % 11.4 % (10-50); Mean Corpuscular HGB Conc 32.1 g/dL (31.8-35.4); Mean Corpuscular Hemoglobin 33.1 pg (27.0-31.2); Mean Corpuscular Volume 103.4 fl (81-99); Mean Platelet Volume 8.3 fl (7.4-10.4); Monocytes # 0.5 K/mm3 (0.1-1.0); Monocytes % 5.1 % (1.7-9.3); Neutrophils # 7.9 K/mm3 (1.8-7.8); Neutrophils % 79.4 % (37.0-80.0); Platelet Count 149 K/mm3 (142-424); Red Blood Count 3.53 M/mm3 (4.20-5.40); White Blood Count 9.9 K/mm3 (4.8-10.8)
--- NOTE | 2021-01-22 08:44 | HMH.ACPN2 ---
Internal Medicine - PN: Subj *Date: 01/22/21 *Time: 08:44 Interval history: Overall patient feels about the same, did not eat breakfast because she is having diarrhea. She tells me that she was having diarrhea nausea at home and that is why she thinks she fell down. Denies blood in the stool. Exam Vital signs and Labs for Last 24 Hours: Temp Pulse Resp BP Pulse Ox 98.3 F 76 18 129/58 L 92 L 01/22/21 07:47 01/22/21 07:47 01/22/21 07:47 01/22/21 07:47 01/22/21 07:47 Laboratory Results - last 24 hr 01/22/21 07:28: WBC 9.9, RBC 3.53 L, Hgb 11.7 L, Hct 36.5 L, MCV 103.4 H, MCH 33.1 H, MCHC 32.1, RDW 13.0, Plt Count 149, MPV 8.3, Neut % (Auto) 79.4, Lymph % (Auto) 11.4, [place] % (Auto) 5.1, Eos % (Auto) 3.8, Baso % (Auto) 0.3, Neut # (Auto) 7.9 H, Lymph # (Auto) 1.1, [place] # (Auto) 0.5, Eos # (Auto) 0.4, Baso # (Auto) 0.0 01/22/21 07:28: Sodium 142, Potassium 3.6, Chloride 115 H, Carbon Dioxide 23, Anion Gap 7.6, BUN 22 H, Creatinine 1.50 H, Estimated Creat Clear 29, Estimated GFR 34 L, Est GFR ( Amer) 41 L, Glucose 96, Calcium 7.7 L, Magnesium 1.6, Total Bilirubin 0.5, AST 60 H, ALT 35, Alkaline Phosphatase 68, Total Protein 5.8 L, Albumin 2.8 L, Globulin 3.0, Albumin/Globulin Ratio 0.9 L I & O for Last 24 hours: Intake & Output 01/19/21 01/20/21 01/21/21 01/22/21 11:59 11:59 11:59 11:59 Intake Total 2120 / 2120 2300 / 2300 2184 / 2184 Output Total 1200 / 1200 800 / 1700 1200 / 1200 Balance 920 / 920 1500 / 600 984 / 984 Weight 112 lb 6 oz 125 lb 124 lb 15.998 oz Microbiology Reports for the Last 24 Hours: Microbiology 01/19/21 19:50 Blood Blood Culture - Preliminary NO GROWTH AFTER 48 HOURS 01/19/21 19:50 Blood Blood Culture - Preliminary NO GROWTH AFTER 48 HOURS Narrative: Patient sleepy. When awakened she is alert and pleasant. Her bruising around her periorbital areas continues to progress but no new evidence of trauma. Lungs are clear, heart rate regular. She able to move her extremities well but continues to have her significant weakness and overall functional decline problems. Abdomen is soft. Assessment and Plan (1) Acute kidney injury Status: Acute Category: Medical Code(s): N17.9 - Acute kidney failure, unspecified (2) Sequelae, post-stroke Status: Acute Category: Medical Code(s): I69.30 - Unspecified sequelae of cerebral infarction (3) Fall Status: Acute Qualifiers: Encounter type: initial encounter Qualified Code(s): W19.XXXA - Unspecified fall, initial encounter Category: Medical Code(s): W19.XXXA - Unspecified fall, initial encounter (4) Rhabdomyolysis Status: Acute Qualifiers: Rhabdomyolysis type: traumatic Encounter type: initial encounter Qualified Code(s): T79.6XXA - Traumatic ischemia of muscle, initial encounter Category: Medical Code(s): M62.82 - Rhabdomyolysis (5) COPD (chronic obstructive pulmonary disease) Status: Chronic Category: Medical Code(s): J44.9 - Chronic obstructive pulmonary disease, unspecified (6) GERD (gastroesophageal reflux disease) Status: Chronic Category: Medical Code(s): K21.9 - Gastro-esophageal reflux disease without esophagitis (7) Essential hypertension Status: Chronic Category: Medical Code(s): I10 - Essential (primary) hypertension - Assessment and plan all Dx Assessment and Plan for all problems:: No changes in plan, kidney injury resolving. Await insurance company bureaucratic decision about approval which is medically necessary, I would note that it is extremely frustrating to be using an acute care hospital bed for someone who needs to go to skilled care today. I have asked our administration to lodge a complaint with the [place] insurance commission regarding [employer]'s deliberate delay in approving this person's necessary admission to long-term care. Patient had diarrhea on
--- NOTE | 2021-01-22 11:06 | HMH.DCSUM ---
General - General Admission date:: 01/19/21 Discharge date: 01/22/21 HPI HPI: 75-year-old white female who has had a stroke and usually uses a walker to get around the house but frequently does not comply with this need for her. Yesterday morning she was walking around her house without her walker and tripped, fell down face forward. Was unable to get up and by the time her family did there baseline checks on her she had been down for 12 hours. Brought to the emergency department. Extensive x-ray testing showed no evidence of facial fracture or other fractures of pelvis or other bones. However, she was found to have acute kidney injury, rhabdomyolysis and was admitted to hospital for IV fluids and further evaluation. This morning she feels better, does note minimal pain around her face but denies other long bone pain. Hospital Course Hospital Course: Patient was admitted, rhabdomyolysis was treated with IV fluids, acute kidney injury resolved. Patient had no fractures noted on roentgenographic exam of her face, spine or pelvis, but was noted to be very frail and PT recommended inpatient/skilled care rehabilitation. Patient was agreeable to this and she [place] [facility] [place]. We will follow her up in our rounds on regular follow-up. She will need a CBC and BMP on Wednesday of next week. Objective Vital signs: Temp Pulse Resp BP Pulse Ox 98.3 F 76 18 129/58 L 92 L 01/22/21 07:47 01/22/21 07:47 01/22/21 07:47 01/22/21 07:47 01/22/21 07:47 no acute distress - *Routine HEENT Exam Head: Present: hematoma Eye: Present: EOMI, PERRL ENT: Present: mucous membranes moist Comments: Periorbital hematomas as previously noted. Lots of tenderness. No disfigurement of nose - *Routine Neck Exam Present: supple - *Routine Respiratory Exam Present: CTA bilaterally - *Routine Cardiovascular Exam Present: RRR - *Routine Abdominal Exam Present: soft, normoactive bowel sounds. Absent: tenderness - *Routine Extremities Exam Absent: cyanosis, clubbing, edema - *Routine Skin Exam Present: warm. Absent: rash - *Routine Neurological Exam Present: alert, oriented X3 Previously noted hemiparesis. Globally weak. - Detailed Eye Exam Eyelids: Bilateral normal inspection Results Labs on day of discharge: Labs from last 24 hours 01/22/21 01/22/21 07:28 07:28 WBC 9.9 RBC 3.53 L Hgb 11.7 L Hct 36.5 L MCV 103.4 H MCH 33.1 H MCHC 32.1 RDW 13.0 Plt Count 149 MPV 8.3 Neut % (Auto) 79.4 Lymph % (Auto) 11.4 [place] % (Auto) 5.1 Eos % (Auto) 3.8 Baso % (Auto) 0.3 Neut # (Auto) 7.9 H Lymph # (Auto) 1.1 [place] # (Auto) 0.5 Eos # (Auto) 0.4 Baso # (Auto) 0.0 Sodium 142 Potassium 3.6 Chloride 115 H Carbon Dioxide 23 Anion Gap 7.6 BUN 22 H Creatinine 1.50 H Estimated Creat Clear 29 Estimated GFR 34 L Est GFR ( Amer) 41 L Glucose 96 Calcium 7.7 L Magnesium 1.6 Total Bilirubin 0.5 AST 60 H ALT 35 Alkaline Phosphatase 68 Total Protein 5.8 L Albumin 2.8 L Globulin 3.0 Albumin/Globulin Ratio 0.9 L Preliminary micro results at discharge 01/19/21 19:50 Blood Culture - Preliminary Blood NO GROWTH AFTER 48 HOURS 01/19/21 19:50 Blood Culture - Preliminary Blood NO GROWTH AFTER 48 HOURS DS: Diagnosis - Discharge Diagnosis (1) Acute kidney injury Status: Resolved (2) Sequelae, post-stroke Status: Chronic (3) Fall Status: Acute (4) Rhabdomyolysis Status: Resolved (5) COPD (chronic obstructive pulmonary disease) Status: Chronic (6) GERD (gastroesophageal reflux disease) Status: Chronic (7) Essential hypertension Status: Chronic Discharge Plan - Patient Discharge Instructions ACTIVITY: Continue current activity, Up with assistance DIET: continue same diet Patient Instructions: Rh
[2021-01-22 11:45] VITALS: BP 111/50; PULSE 74; RESP 18; TEMP 36.8; O2SAT 95
== END 2021-01-22 13:45 ==
LOC: ER 20:19 → 2ND 22:34
PROVIDERS: Emergency Medicine; Internal Medicine Adolescent Medicine; Admitting Provider Internal Medicine Adolescent Medicine; Emergency Provider Emergency Medicine; PCP Internal Medicine Adolescent Medicine; Visit Provider Internal Medicine Adolescent Medicine
DX: T79.6XXA Traumatic ischemia of muscle, initial encounter (principal); I10 Essential (primary) hypertension; E78.5 Hyperlipidemia, unspecified; M85.89 Other specified disorders of bone density and structure, multiple sites; S06.0X0A Concussion without loss of consciousness, initial encounter; I71.4 Abdominal aortic aneurysm, without rupture; J44.9 Chronic obstructive pulmonary disease, unspecified; W01.0XXA Fall on same level from slipping, tripping and stumbling without subsequent striking against object, initial encounter; Y92.019 Unspecified place in single-family (private) house as the place of occurrence of the external cause
CPT/HCPCS: 36415; 70450; 70486; 71045; 72125; 72128; 72131; 73502; 80048; 80053; 81001; 82150; 82550; 83605; 83690; 83735; 84436; 84443; 84484; 85007; 85025; 87040; 87581; 87633; 87798; 93005; 96365; 96366; 97162; 97166; 97530; 99282; G0378

== ENCOUNTER → 2021-02-28 14:57 | Outpatient (CLI) | payer MEDICARE, MEDICAID, SELFPAY | PROVIDERS: Visit Provider Internal Medicine Adolescent Medicine | DX: R30.0 Dysuria (principal) | CPT/HCPCS: 87086; 87088; 87186 ==

== ENCOUNTER 2021-03-16 15:08 | Observation (INO) | payer MEDICARE, MEDICAID, SELFPAY ==
[2021-03-16] VITALS (17 sets, daily range): BP systolic 122–139; BP diastolic 61–71; PULSE 80–90; RESP 15–26; TEMP 36.6; O2SAT 85–96; BMI 22.4; BMI 19.7
--- NOTE | 2021-03-16 15:43 | CT_ITS ---
PROCEDURE INFORMATION: Exam: CT Head Without Contrast Exam date and time: 03/16/2021 3:43 PM Age: 75 years old Clinical indication: Injury or trauma; Fall; Blunt trauma (contusions or hematomas); Additional info: Fall. Change in mental status TECHNIQUE: Imaging protocol: Computed tomography of the head without contrast. Radiation optimization: All CT scans at this facility use at least one of these dose optimization techniques: automated exposure control; mA and/or kV adjustment per patient size (includes targeted exams where dose is matched to clinical indication); or iterative reconstruction. COMPARISON: CT HEAD/BRAIN WO CON 01/19/2021 8:21 PM FINDINGS: Brain: There is age-appropriate cerebral atrophy. Severe changes of chronic small vessel ischemia within the cerebral white matter regions bilaterally. Old area of low encephalomalacia in the right frontal lobe. No acute infarct or hemorrhage. Cerebral ventricles: No ventriculomegaly. Paranasal sinuses: Visualized sinuses are unremarkable. No fluid levels. Mastoid air cells: Visualized mastoid air cells are well aerated. Bones/joints: Unremarkable. No acute fracture. Soft tissues: Unremarkable. IMPRESSION: No acute intracranial abnormality.
[2021-03-16 15:51] LABS: Basophils # 0.1 K/mm3 (0-0.2); Basophils % 0.7 % (0.1-2.0); Eosinophils % 0.3 % (0.1-12.0); Hematocrit 39.5 % (37.0-47.0); Hemoglobin 13.1 g/dL (12.2-16.2); Lymphocytes # 1.9 K/mm3 (0.7-4.5); Lymphocytes % 18.8 % (10-50); Mean Corpuscular HGB Conc 33.2 g/dL (31.8-35.4); Mean Corpuscular Volume 99.6 fl (81-99); Mean Platelet Volume 7.9 fl (7.4-10.4); Microscopic, Urine URINE MICROSCOPIC (MICROSCOPIC); Monocytes # 0.5 K/mm3 (0.1-1.0); Monocytes % 4.9 % (1.7-9.3); Neutrophils # 7.8 K/mm3 (1.8-7.8); Neutrophils % 75.3 % (37.0-80.0); Platelet Count 245 K/mm3 (142-424); Red Blood Count 3.96 M/mm3 (4.20-5.40); Red Cell Distribution Width 13.9 % (11.5-17.5); White Blood Count 10.3 K/mm3 (4.8-10.8)
[2021-03-16 15:53] LABS: Appearance,Urine CLEAR (Clear); Bilirubin,Urine Negative (Negative); Blood, Urine Negative (Negative); Color,Urine YELLOW (Yellow); Glucose,Urine (UA) Negative (Negative); Ketones,Urine Negative (Negative); Leukocyte Esterase,Urine Negative (Negative); Nitrate,Urine Negative (Negative); Protein,Urine Negative (Negative); Urobilinogen,Urine 0.2 EU/dl (0.2)
[2021-03-16 16:03] LABS: Chloride 100 mmol/L (98-107); Sodium 139 mmol/L (136-145)
[2021-03-16 16:05] LABS: Alanine Aminotransferase 18 U/L (12-78); Aspartate Amino Transferase 33 U/L (14-36); Blood Urea Nitrogen 51 mg/dl (7-17); Creatinine Clearance Estimated 11 mL/min (50-200); Estimated Glomerular Filt Rate 11 ml/min (>60); GFR (African American) 14 ML/MIN (>60)
[2021-03-16 16:06] LABS: Albumin Level 4.3 g/dl (3.5-5.0); Albumin/Globulin Ratio 1.3 (1.1-1.8); Alkaline Phosphatase 97 U/L (38-126); Bilirubin,Total 0.5 mg/dl (0.2-1.3); Carbon Dioxide 26 mmol/L (22.0-30.0); Globulin 3.3 g/dL (1.3-3.2); Glucose 118 mg/dl (74-100); Total Protein,Serum 7.6 g/dl (6.3-8.2)
--- NOTE | 2021-03-16 17:08 | HMH.EDGENADL ---
ED Disposition Clinical Impression: Dehydration, Change in mental state Disposition: Admitted As Inpatient Condition on Discharge: Good - Critical Care Critical Care Time: No Attestation: On 03/16/21, the high probability of a clinically significant, sudden or life threatening deterioration of the following system(s) required my full and direct attention, intervention and personal management. The time I documented below is in addition to time spent performing reported procedures but includes the following listed in this critical care notation. Medical Decision Making - Juanjo Inquiry Pt receiving controlled substance: No Juanjo was queried for this patient: No Vital Signs: 03/16/21 15:09 03/16/21 15:29 03/16/21 15:30 Temperature 97.8 F Temperature Source Oral Pulse Rate 84 80 Pulse Rate [Right] 90 Respiratory Rate 22 21 20 Blood Pressure 127/64 Blood Pressure [Right Arm] 122/70 Blood Pressure Mean [Right Arm] 87 Blood Pressure Source Blood Pressure Source [Right Arm] Automatic Cuff Blood Pressure Position 02 Sat by Pulse Oximetry 94 L 85 L 94 L Oxygen Delivery Method Room Air 03/16/21 15:31 03/16/21 15:45 03/16/21 16:00 Temperature Temperature Source Pulse Rate 86 85 82 Pulse Rate [Right] Respiratory Rate 15 20 17 Blood Pressure 131/61 Blood Pressure [Right Arm] Blood Pressure Mean [Right Arm] Blood Pressure Source Blood Pressure Source [Right Arm] Blood Pressure Position 02 Sat by Pulse Oximetry 93 L 91 L 95 Oxygen Delivery Method 03/16/21 16:32 03/16/21 16:45 03/16/21 16:53 Temperature Temperature Source Pulse Rate 85 84 90 Pulse Rate [Right] Respiratory Rate 16 17 17 Blood Pressure 132/67 Blood Pressure [Right Arm] Blood Pressure Mean [Right Arm] Blood Pressure Source Blood Pressure Source [Right Arm] Blood Pressure Position 02 Sat by Pulse Oximetry 96 95 95 Oxygen Delivery Method 03/16/21 17:00 03/16/21 17:15 03/16/21 17:30 Temperature Temperature Source Pulse Rate 83 86 85 Pulse Rate [Right] Respiratory Rate 17 17 26 H Blood Pressure 139/62 134/63 Blood Pressure [Right Arm] Blood Pressure Mean [Right Arm] Blood Pressure Source Blood Pressure Source [Right Arm] Blood Pressure Position 02 Sat by Pulse Oximetry 95 95 95 Oxygen Delivery Method 03/16/21 17:45 03/16/21 18:00 03/16/21 18:15 Temperature Temperature Source Pulse Rate 87 Pulse Rate [Right] Respiratory Rate 16 22 18 Blood Pressure 134/71 Blood Pressure [Right Arm] Blood Pressure Mean [Right Arm] Blood Pressure Source Blood Pressure Source [Right Arm] Blood Pressure Position 02 Sat by Pulse Oximetry 94 L Oxygen Delivery Method 03/16/21 18:30 03/16/21 19:03 Temperature 97.9 F Temperature Source Oral Pulse Rate 89 Pulse Rate [Right] Respiratory Rate 17 21 Blood Pressure 123/67 123/67 Blood Pressure [Right Arm] Blood Pressure Mean [Right Arm] Blood Pressure Source Automatic Cuff Blood Pressure Source [Right Arm] Blood Pressure Position Supine 02 Sat by Pulse Oximetry Oxygen Delivery Method Room Air - Lab Data Lab Results 03/16/21 15:30: Urine Color Yellow, Urine Appearance Clear, Urine pH 6.0, Ur Specific [place] 1.020, Urine Protein Negative, Urine Glucose (UA) Negative, Urine Ketones Negative, Urine Blood Negative, Urine Nitrate Negative, Urine Bilirubin Negative, Urine Urobilinogen 0.2, Ur Leukocyte Esterase Negative, Urine RBC None, Urine WBC 3-5, Ur Squamous Epith Cells 3-5, Urine Bacteria None 03/16/21 15:30: WBC 10.3, RBC 3.96 L, Hgb 13.1, Hct 39.5, MCV 99.6 H, MCH 33.0 H, MCHC 33.2, RDW 13.9, Plt Count 245, MPV 7.9, Neut % (Auto) 75.3, Lymph % (Auto) 18.8, [place] % (Auto) 4.9, Eos % (Auto) 0.3, Baso % (Auto) 0.7, Neut # (Auto) 7.8, Lymph # (Auto) 1.9, [place] # (Auto) 0.5, Eos # (Auto) 0.0, Baso # (Auto) 0.1 03/16/21 15:30: Sodium 139, Pot
--- NOTE | 2021-03-16 17:22 | PC.NURSE ---
Dr Oakes spoke with Dr Rodriguez for admission
[2021-03-16 17:36] LABS: NT Pro Brain Natriuretic Pep. 538 pg/mL (0-450)
[2021-03-16 17:36] LABS: Coronavirus 19, PCR Not Detected (NotDetected); Influenza A, PCR Not Detected (NotDetected); Influenza B, PCR Not Detected (NotDetected)
--- NOTE | 2021-03-16 18:39 | PC.NURSE ---
report called to LEONIDAS Casanova
--- NOTE | 2021-03-16 19:16 | PC.NURSE ---
PT ARRIVED TO FLOOR VIA STRETCHER FROM ED W/STAFF [id number]
--- NOTE | 2021-03-17 02:58 | PC.NURSE ---
Patient is A&OX4. No complaints of pain. Patient rested on and off throughout shift. Voided per purewick. VSS. Bed alarm is activated. Patient voiced no further concerns to RN.
[2021-03-17 04:00] VITALS: BP 143/63; PULSE 81; RESP 18; TEMP 36.6; O2SAT 96
[2021-03-17 05:00] VITALS: BMI 19.5
[2021-03-17 08:00] VITALS: BP 136/63; PULSE 85; RESP 16; TEMP 36.4; O2SAT 96
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
--- NOTE | 2021-03-17 08:59 | HMH.PHAVTE ---
[facility] Pharmacy VTE Monitoring - Patient Demographics Admission date: 03/16/21 Report Date: 03/17/21 Time: 08:59 Allergies/Adverse Reactions: Patient Allergies Penicillins Allergy (Verified 01/20/21 07:57) Rash Height: 1.55 m Weight: 46.811 kg Patient Problems: Current Active Problems Dehydration (Acute) Change in mental state (Acute) - VTE Risk Labs: VTE Related Lab Results Hgb 13.1 g/dL (12.2-16.2) 03/16/21 15:30 Hct 39.5 % (37.0-47.0) 03/16/21 15:30 Plt Count 245 K/mm3 (142-424) 03/16/21 15:30 BUN 51 mg/dl (7-17) H 03/16/21 15:30 Creatinine 3.90 mg/dl (0.52-1.04) H 03/16/21 15:30 Estimated Creat Clear 11 mL/min (50-200) 03/16/21 15:30 Clinical Trial Participant: No - Prophylaxis VTE Prophylaxis Ordered?: Yes Types of VTE Prophylaxis: TEDS Knee High
--- NOTE | 2021-03-17 09:32 | HMH.PTEV ---
Physical Therapy Evaluation Rehab PT IP Evaluation Start: 03/17/21 08:35 Freq: ONCE Status: Active Protocol: Document 03/17/21 09:25 PHORNE (Rec: 03/17/21 09:31 PHORNE [id number]) Subjective/History History History [address] [facility] with AMS and dehydration. She reports she lives alone and uses a walker for ambulation at baseline. Subjective Subjective Pt reports she feels a little weak this am, but better overall. Rehab PT IP Eval Objective Appearance Patient Behavior Appropriate Patient Orientation Person,Place,Time Difficulty following instructions none Speech Pattern Clear Ambulation Patient Able to Ambulate Yes Ambulation Observation IP General Gait Pattern Observation Wide Based Gait,Shuffling Step Ambulation Distance (feet) 15 Ambulation Assistive Device None Ambulation Ability Minimal x 1 (25% assist) Balance Ability to Arise Able, uses arms to help Sitting Balance Steady, safe Standing Balance Steady, wide stance Dynamic Sitting Balance Ability Fair Dynamic Standing Balance Ability Fair Transfers Bed Transfer Ability Contact Guard/Hand Hold Chair Transfer Ability Minimal x 1 (25% assist) Sit to Stand Bed Transfer Ability Minimal x 1 (25% assist) Sit to Stand Chair Transfer Ability Minimal x 1 (25% assist) ROM All Extremities PT ROM Status WFL MMT All Extremities PT MMT WFL Abnormal MMT Grade grossly 3/5 throughout Rehab PT IP prob,goals,plan Problems Date of Evaluation: 03/17/21 PT IP Problems Bed Mobility,Transfers,Gait Rehab Potential Rehab Potential Good Plan PT Intervention Plan Bed Mobility,Transfers,Gait, Therapeutic Exercise PT Plan Frequency BID Duration LOS Discharge Goals Bed Transfer Ability Supervision/Stand by Sit to Stand Chair Transfer Ability Contact Guard/Hand Hold Ambulation Assistive Device Rolling Walker Ambulation Distance (feet) 30 Discharge Plan PT Discharge Plan Pt is most appropriate for rehab placement at this time due to significant risk of fall or further injury should she return home. G -code Required No Eval Complexity Eval Charge Codes 36402 - Moderate Complexity PHYSICIAN CER
[2021-03-17 09:37] LABS: Chloride 102 mmol/L (98-107)
[2021-03-17 09:38] LABS: Potassium 4.9 mmoL/L (3.5-5.1); Sodium 138 mmol/L (136-145)
[2021-03-17 09:40] LABS: Blood Urea Nitrogen 48 mg/dl (7-17); Creatinine Clearance Estimated 11 mL/min (50-200); Estimated Glomerular Filt Rate 14 ml/min (>60); GFR (African American) 16 ML/MIN (>60)
[2021-03-17 09:41] LABS: Anion Gap 14.9 mEq/L (5-15); Calcium 8.8 mg/dl (8.4-10.2); Carbon Dioxide 26 mmol/L (22.0-30.0); Glucose 94 mg/dl (74-100)
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
--- NOTE | 2021-03-17 14:42 | HMH.PHAINT ---
MEDICATION RECONCILIATION COMPLETE USING LIST FROM MD OFFICE AND EXTERNAL PHARMACY FILL HISTORY.
[2021-03-17 15:23] VITALS: BP 101/57; PULSE 76; RESP 16; TEMP 36.9; O2SAT 97
[2021-03-17 19:09] VITALS: O2SAT 98
[2021-03-17 20:00] VITALS: BP 112/64; PULSE 56; TEMP 36.7; O2SAT 96; O2SAT 98
--- NOTE | 2021-03-17 20:25 | PC.NURSE ---
Pt alert and oriented x 4. Pt has been on 2 L NC this shift. VSS. NAD or c/o. CB in easy reach.
[2021-03-18 04:00] VITALS: BP 106/47; PULSE 70; RESP 16; TEMP 36.7; O2SAT 99
[2021-03-18 05:00] VITALS: BMI 19.6
[2021-03-18 06:17] LABS: Basophils # 0.1 K/mm3 (0-0.2); Basophils % 0.9 % (0.1-2.0); Eosinophils # 0.2 K/mm3 (0.0-0.4); Eosinophils % 2.6 % (0.1-12.0); Hematocrit 37.4 % (37.0-47.0); Hemoglobin 11.9 g/dL (12.2-16.2); Lymphocytes # 1.5 K/mm3 (0.7-4.5); Lymphocytes % 17.7 % (10-50); Mean Corpuscular HGB Conc 31.8 g/dL (31.8-35.4); Mean Corpuscular Hemoglobin 32.8 pg (27.0-31.2); Mean Corpuscular Volume 103.1 fl (81-99); Mean Platelet Volume 7.6 fl (7.4-10.4); Monocytes # 0.4 K/mm3 (0.1-1.0); Monocytes % 4.9 % (1.7-9.3); Neutrophils # 6.4 K/mm3 (1.8-7.8); Neutrophils % 73.9 % (37.0-80.0); Platelet Count 171 K/mm3 (142-424); Red Blood Count 3.63 M/mm3 (4.20-5.40); Red Cell Distribution Width 14.1 % (11.5-17.5); White Blood Count 8.7 K/mm3 (4.8-10.8)
[2021-03-18 06:57] LABS: Chloride 111 mmol/L (98-107); Potassium 4.3 mmoL/L (3.5-5.1); Sodium 139 mmol/L (136-145)
[2021-03-18 06:59] LABS: Alanine Aminotransferase 16 U/L (12-78); Alkaline Phosphatase 68 U/L (38-126); Aspartate Amino Transferase 36 U/L (14-36); Bilirubin,Total 0.6 mg/dl (0.2-1.3); Blood Urea Nitrogen 41 mg/dl (7-17); Creatinine Clearance Estimated 14 mL/min (50-200); Estimated Glomerular Filt Rate 19 ml/min (>60); GFR (African American) 23 ML/MIN (>60)
[2021-03-18 07:00] LABS: Albumin Level 3.3 g/dl (3.5-5.0); Albumin/Globulin Ratio 1.1 (1.1-1.8); Anion Gap 9.3 mEq/L (5-15); Calcium 8.2 mg/dl (8.4-10.2); Carbon Dioxide 23 mmol/L (22.0-30.0); Globulin 2.9 g/dL (1.3-3.2); Glucose 96 mg/dl (74-100); Total Protein,Serum 6.2 g/dl (6.3-8.2)
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
[2021-03-18 08:00] VITALS: BP 127/67; PULSE 74; RESP 18; RESP 19; TEMP 36.9; O2SAT 95
[2021-03-18 08:39] LABS: Adenovirus F 40/41, stool Not Detected (NotDetected); Astrovirus Not Detected (NotDetected); Campylobacter Not Detected (NotDetected); Cryptosporidium Not Detected (NotDetected); Cyclospora Cayetanesis Not Detected (NotDetected); Entamoeba histolytica Not Detected (NotDetected); Enteroaggregative E coli Not Detected (NotDetected); Enteropathogenic E coli Not Detected (NotDetected); Enterotoxigenic E coli Not Detected (NotDetected); Giardia lamblia Not Detected (NotDetected); Norovirus Not Detected (NotDetected); Plesimonas Shigalloides, PCR Not Detected (NotDetected); Rotavirus A Not Detected (NotDetected); Salmonella, PCR Not Detected (NotDetected); Sapovirus Not Detected (NotDetected); Shiga-like toxin E coli Not Detected (NotDetected); Shigella Enterovasive E coli Not Detected (NotDetected); Vibrio Cholerae Not Detected (NotDetected); Vibrio, PCR Not Detected (NotDetected); Yersinia Entercolitica, PCR Not Detected (NotDetected)
[2021-03-18 15:58] LABS: Clostridium Difficile A/B, PCR Detected (NotDetected)
[2021-03-18 16:00] VITALS: BP 119/58; PULSE 71; RESP 18; TEMP 36.9; O2SAT 92
[2021-03-18 19:19] VITALS: O2SAT 88
[2021-03-18 20:00] VITALS: O2SAT 94
--- NOTE | 2021-03-18 20:01 | PC.NURSE ---
89% RA SATS. RETURN PT TO 2L N/C
[2021-03-18 20:38] VITALS: BP 113/64; PULSE 83; RESP 18; TEMP 36.7; O2SAT 93
--- NOTE | 2021-03-19 03:11 | PC.NURSE ---
Patient is A&O. No complaints of pain. Patient still continues to have loose bowel movements. Good urine output. VSS. No further concerns noted to RN.
[2021-03-19 04:00] VITALS: BP 143/63; PULSE 78; RESP 18; TEMP 36.5; O2SAT 92
[2021-03-19 05:00] VITALS: BMI 19.7
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
[2021-03-19 08:00] VITALS: BP 135/69; PULSE 80; RESP 18; TEMP 36.7; O2SAT 94
[2021-03-19 08:13] LABS: Basophils # 0.1 K/mm3 (0-0.2); Eosinophils # 0.4 K/mm3 (0.0-0.4); Eosinophils % 4.3 % (0.1-12.0); Hematocrit 40.4 % (37.0-47.0); Hemoglobin 12.9 g/dL (12.2-16.2); Lymphocytes # 1.6 K/mm3 (0.7-4.5); Lymphocytes % 18.6 % (10-50); Mean Corpuscular Hemoglobin 32.4 pg (27.0-31.2); Mean Corpuscular Volume 101.4 fl (81-99); Monocytes # 0.3 K/mm3 (0.1-1.0); Monocytes % 3.6 % (1.7-9.3); Neutrophils # 6.1 K/mm3 (1.8-7.8); Neutrophils % 72.6 % (37.0-80.0); Platelet Count 190 K/mm3 (142-424); Red Blood Count 3.98 M/mm3 (4.20-5.40); Red Cell Distribution Width 13.8 % (11.5-17.5); White Blood Count 8.5 K/mm3 (4.8-10.8)
[2021-03-19 08:16] LABS: Chloride 116 mmol/L (98-107); Potassium 4.9 mmoL/L (3.5-5.1); Sodium 141 mmol/L (136-145)
[2021-03-19 08:19] LABS: Anion Gap 9.9 mEq/L (5-15); Blood Urea Nitrogen 19 mg/dl (7-17); Calcium 8.3 mg/dl (8.4-10.2); Carbon Dioxide 20 mmol/L (22.0-30.0); Creatinine Clearance Estimated 23 mL/min (50-200); Estimated Glomerular Filt Rate 31 ml/min (>60); GFR (African American) 38 ML/MIN (>60); Glucose 98 mg/dl (74-100)
== END 2021-03-19 13:30 ==
LOC: ER 17:19 → 2ND 17:47
PROVIDERS: Internal Medicine Adolescent Medicine; Admitting Provider Family Medicine; Emergency Provider Internal Medicine; Visit Provider Internal Medicine Adolescent Medicine
DX: E86.0 Dehydration (principal); A04.72 Enterocolitis due to Clostridium difficile, not specified as recurrent; Z20.822 Contact with and (suspected) exposure to COVID-19; Z91.81 History of falling; R29.6 Repeated falls; N17.9 Acute kidney failure, unspecified; I10 Essential (primary) hypertension; E78.5 Hyperlipidemia, unspecified; R06.9 Unspecified abnormalities of breathing; Z23 Encounter for immunization
CPT/HCPCS: 90471; G0378; 36415; 70450; 80048; 80053; 81001; 83605; 83880; 85025; 87506; 90715; 94640; 97110; 97162; 97165; 97530; 99284; J3370; U0003

== ENCOUNTER 2021-05-20 04:12 | Inpatient (IN) | payer MEDICARE, MEDICAID, SELFPAY ==
[2021-05-20] VITALS (23 sets, daily range): BP systolic 104–152; BP diastolic 45–76; PULSE 72–98; RESP 17–28; TEMP 36.6–37.1; O2SAT 81–96; BMI 19.8
--- NOTE | 2021-05-20 04:19 | ECG_ITS ---
APPROVED REPORT Exam: Resting ECG HR:97 bpm ECG Measurements Heart Rate 97 AXES MA 150 P 74 QRSd 68 QRS 55 QT 344 T 67 QTc 436 Conclusion Normal sinus rhythm Low voltage QRS Borderline ECG Electronically signed by : Nas Marques MD 05/22/2021 17:51:51
[2021-05-20 04:22] LABS: ABG Base Excess -3.5 mmol/L (-2.4-2.3); ABG HCO3 21.5 mmhg (22.0-26.0); ABG Oxygen Saturation 82 % (90-100); ABG PCO2 36.7 mmhg (35.0-45.0); ABG PH 7.39 mmol/L (7.35-7.45); ABG TCO2 22.6 mmhg (23-27)
[2021-05-20 04:24] LABS: Allen's Test Acceptable; Oxygen 4L %; Source Right Brachial
[2021-05-20 04:25] LABS: ABG PO2 46.5 mmhg (80-100)
--- NOTE | 2021-05-20 04:29 | XR_ITS ---
PROCEDURE INFORMATION: Exam: XR Chest Exam date and time: 05/20/2021 4:29 AM Age: 75 years old Clinical indication: Cough and shortness of breath; Additional info: Low o2 TECHNIQUE: Imaging protocol: XR of the chest. Views: 1 view. COMPARISON: CR XR CHEST PORTABLE 01/19/2021 8:42 PM FINDINGS: Lungs: Reticular opacities, most conspicuous in the left perihilar region and left lung base. Pleural spaces: Query trace left pleural effusion. Heart/Mediastinum: Unremarkable. No cardiomegaly. Bones/joints: Unremarkable. IMPRESSION: 1. Reticular opacities, most conspicuous in the left perihilar region and left lung base, which may reflect some element of interstitial lung disease, potentially with superimposed atypical infection. 2. Possible trace left pleural effusion.
--- NOTE | 2021-05-20 04:30 | PC.NURSE ---
phone call to son to notify of mothers transfer to hospital
--- NOTE | 2021-05-20 05:05 | HMH.EDSOB ---
ED Disposition Clinical Impression: Acute exacerbation of chronic obstructive airways disease, Severe sepsis with acute organ dysfunction, Renal insufficiency Disposition: Admitted as Observation Condition on Discharge: Good - Critical Care Critical Care Time: No Attestation: On 05/20/21, the high probability of a clinically significant, sudden or life threatening deterioration of the following system(s) required my full and direct attention, intervention and personal management. The time I documented below is in addition to time spent performing reported procedures but includes the following listed in this critical care notation. Medical Decision Making - Medical Records Medical records reviewed: Yes: I reviewed the patient's medical records. - Juanjo Inquiry Pt receiving controlled substance: No Vital Signs: 05/20/21 04:00 05/20/21 04:46 05/20/21 05:20 Temperature 98.0 F Temperature Source Rectal Pulse Rate 97 H Pulse Rate [Right] 97 H Respiratory Rate 27 H Blood Pressure 146/67 H Blood Pressure [Right Arm] 145/76 H Blood Pressure Mean [Right Arm] 99 Blood Pressure Source [Right Arm] Automatic Cuff 02 Sat by Pulse Oximetry 81 L 95 92 L Oxygen Delivery Method Nasal Cannula Vapotherm Oxygen Flow Rate (LPM) 4 22 05/20/21 05:30 05/20/21 05:45 05/20/21 06:00 Temperature Temperature Source Pulse Rate 98 H 89 91 H Pulse Rate [Right] Respiratory Rate 28 H 20 Blood Pressure 127/67 140/64 Blood Pressure [Right Arm] Blood Pressure Mean [Right Arm] Blood Pressure Source [Right Arm] 02 Sat by Pulse Oximetry 89 L 92 L Oxygen Delivery Method Vapotherm Vapotherm Oxygen Flow Rate (LPM) 22 22 05/20/21 06:30 Temperature Temperature Source Pulse Rate 91 H Pulse Rate [Right] Respiratory Rate 22 Blood Pressure 129/54 L Blood Pressure [Right Arm] Blood Pressure Mean [Right Arm] Blood Pressure Source [Right Arm] 02 Sat by Pulse Oximetry 91 L Oxygen Delivery Method Vapotherm Oxygen Flow Rate (LPM) 22 - Lab Data Lab results reviewed: Yes: I reviewed the patient's lab results. Lab Results 05/20/21 04:15: Specimen Source Right brachial, O2 % 4l, ABG pH 7.39, ABG pCO2 36.7, ABG pO2 46.5 L, ABG HCO3 21.5 L, ABG Total CO2 22.6 L, ABG O2 Saturation 82 L*, ABG Base Excess -3.5 L, William Test Acceptable 05/20/21 04:40: WBC 15.3 H, RBC 3.81 L, Hgb 12.5, Hct 39.6, MCV 104.0 H, MCH 32.7 H, MCHC 31.5 L, RDW 14.4, Plt Count 268, MPV 9.2, Neut % (Auto) 87.0 H, Lymph % (Auto) 5.1 L, [place] % (Auto) 6.2, Eos % (Auto) 0.8, Baso % (Auto) 0.8, Neut # (Auto) 13.3 H, Lymph # (Auto) 0.8, [place] # (Auto) 0.9, Eos # (Auto) 0.1, Baso # (Auto) 0.1, Total Counted 100, Neutrophils % (Manual) 84 H, Lymphocytes % (Manual) 10, Monocytes % (Manual) 6, Platelet Estimate Normal, Macrocytosis 1+, ESR 63 H 05/20/21 04:40: Sodium 145, Potassium 4.0, Chloride 114 H, Carbon Dioxide 24, Anion Gap 11.0, BUN 32 H, Creatinine 1.30 H, Estimated Creat Clear 28, Estimated GFR 40 L, Est GFR ( Amer) 48 L, Glucose 112 H, Calcium 9.1, Magnesium 1.7, Total Bilirubin 0.5, AST 22, ALT 20, Alkaline Phosphatase 86, Troponin I 0.01, C-Reactive Protein 212.7 H, Total Protein 6.7, Albumin 3.3 L, Globulin 3.4 H, Albumin/Globulin Ratio 1.0 L, Procalcitonin 0.853 05/20/21 04:40: Lactate 1.0 05/20/21 04:47: Urine Color Yellow, Urine Appearance Clear, Urine pH 6.0, Ur Specific [place] 1.025, Urine Protein 1+, Urine Glucose (UA) Negative, Urine Ketones Negative, Urine Blood Trace-i, Urine Nitrate Negative, Urine Bilirubin Negative, Urine Urobilinogen 0.2, Ur Leukocyte Esterase 1+ A, Urine RBC 3-5, Urine WBC 10-20, Ur Squamous Epith Cells 10-20, Urine Bacteria 1+, Urine Mucus 1+ 05/20/21 06:14: SARS-CoV-2 (PCR) Not detected, Influenza A Untype (PCR) Not detected, Influenza Type B (PCR) Not detected Result diagrams: 05/20/21 04:40 05/20/21 04:40 Orders (Tests/Meds): ED MEDICATIONS Generic Name Dose Route Start Last Admin Trade
[2021-05-20 05:08] LABS: Microscopic, Urine URINE MICROSCOPIC (MICROSCOPIC)
[2021-05-20 05:12] LABS: Coronavirus 19, PCR Not Detected (NotDetected); Influenza A, PCR Not Detected (NotDetected); Influenza B, PCR Not Detected (NotDetected)
[2021-05-20 05:12] LABS: Basophils # 0.1 K/mm3 (0-0.2); Basophils % 0.8 % (0.1-2.0); Eosinophils # 0.1 K/mm3 (0.0-0.4); Eosinophils % 0.8 % (0.1-12.0); Hematocrit 39.6 % (37.0-47.0); Hemoglobin 12.5 g/dL (12.2-16.2); Lymphocytes # 0.8 K/mm3 (0.7-4.5); Lymphocytes % 5.1 % (10-50); Mean Corpuscular HGB Conc 31.5 g/dL (31.8-35.4); Mean Corpuscular Hemoglobin 32.7 pg (27.0-31.2); Mean Platelet Volume 9.2 fl (7.4-10.4); Monocytes # 0.9 K/mm3 (0.1-1.0); Monocytes % 6.2 % (1.7-9.3); Neutrophils # 13.3 K/mm3 (1.8-7.8); Platelet Count 268 K/mm3 (142-424); Red Blood Count 3.81 M/mm3 (4.20-5.40); Red Cell Distribution Width 14.4 % (11.5-17.5); White Blood Count 15.3 K/mm3 (4.8-10.8)
[2021-05-20 05:15] LABS: Appearance,Urine CLEAR (Clear); Bilirubin,Urine Negative (Negative); Blood, Urine TRACE-I (Negative); Color,Urine YELLOW (Yellow); Glucose,Urine (UA) Negative (Negative); Ketones,Urine Negative (Negative); Leukocyte Esterase,Urine 1+ (Negative); Nitrate,Urine Negative (Negative); Protein,Urine 1+ (Negative); Specific Gravity, Urine 1.025 (1.005-1.030); Urobilinogen,Urine 0.2 EU/dl (0.2)
[2021-05-20 05:16] LABS: Alanine Aminotransferase 20 U/L (12-78); Albumin Level 3.3 g/dl (3.5-5.0); Alkaline Phosphatase 86 U/L (38-126); Aspartate Amino Transferase 22 U/L (14-36); Bilirubin,Total 0.5 mg/dl (0.2-1.3); Blood Urea Nitrogen 32 mg/dl (7-17); Calcium 9.1 mg/dl (8.4-10.2); Carbon Dioxide 24 mmol/L (22.0-30.0); Chloride 114 mmol/L (98-107); Creatinine Clearance Estimated 28 mL/min (50-200); Estimated Glomerular Filt Rate 40 ml/min (>60); GFR (African American) 48 ML/MIN (>60); Globulin 3.4 g/dL (1.3-3.2); Glucose 112 mg/dl (74-100); Magnesium 1.7 mg/dl (1.6-2.3); Sodium 145 mmol/L (136-145); Total Protein,Serum 6.7 g/dl (6.3-8.2)
[2021-05-20 05:22] LABS: C-Reactive Protein 212.7 mg/L (0-4); MANUAL DIFFERENTIAL MANUAL DIFFERENTIAL (MANUAL DIFF)
[2021-05-20 05:35] LABS: Procalcitonin 0.853 ng/mL (0.0-2.0)
[2021-05-20 05:36] LABS: Troponin I 0.01 ng/ml (0.00-0.034)
[2021-05-20 05:40] LABS: Lymphocytes % 10 % (10-50); Monocytes % 6 % (2-9); Neutrophils % 84 % (42-76); Total Cells Counted 100
[2021-05-20 05:42] LABS: Macrocytosis 1+; Platelet Estimate Normal
[2021-05-20 05:45] LABS: Erythrocyte Sedimentation Rate 63 mm/hr (0-30)
--- NOTE | 2021-05-20 05:46 | PC.NURSE ---
~0500 Respiratory at bedside to transition from simple mask to vapotherm. It is set on 22LPM and 65%. sat is 90-92%. Pt tolerating well at this time.
[2021-05-20 05:57] LABS: Bacteria,Urine 1+ /lpf; Mucus,Urine 1+ /lpf
--- NOTE | 2021-05-20 06:34 | PC.NURSE ---
patient given ice chips
--- NOTE | 2021-05-20 07:57 | PC.NURSE ---
attempted to call report to second floor, no answer from receiving nurse, will call back
--- NOTE | 2021-05-20 07:58 | HMH.PHAVTE ---
[facility] Pharmacy VTE Monitoring - Patient Demographics Admission date: 05/20/21 Report Date: 05/20/21 Time: 07:58 Allergies/Adverse Reactions: Patient Allergies Penicillins Allergy (Verified 01/20/21 07:57) Rash Height: 1.55 m Weight: 47.627 kg Patient Problems: Current Active Problems Renal insufficiency (Acute) Acute exacerbation of chronic obstructive airways disease (Acute) Severe sepsis with acute organ dysfunction (Acute) - VTE Risk Labs: VTE Related Lab Results Hgb 12.5 g/dL (12.2-16.2) 05/20/21 04:40 Hct 39.6 % (37.0-47.0) 05/20/21 04:40 Plt Count 268 K/mm3 (142-424) 05/20/21 04:40 BUN 32 mg/dl (7-17) H 05/20/21 04:40 Creatinine 1.30 mg/dl (0.52-1.04) H 05/20/21 04:40 Estimated Creat Clear 28 mL/min (50-200) 05/20/21 04:40 Clinical Trial Participant: No - Prophylaxis VTE Prophylaxis Ordered?: Yes Types of VTE Prophylaxis: TEDS Knee High
--- NOTE | 2021-05-20 08:06 | PC.NURSE ---
report called to Pete Gongora RN on second floor, states he will send staff down to transport pt
--- NOTE | 2021-05-20 08:18 | HMH.PHAINT ---
MEDICATION RECONCILIATION COMPLETE USING [facility]
[2021-05-20 09:14] LABS: Troponin I 0.02 ng/ml (0.00-0.034)
--- NOTE | 2021-05-20 10:39 | PC.NURSE ---
TITRATED VAPOTHERM SETTINGS TO 25LPM @ 60% FIO2
--- NOTE | 2021-05-20 12:05 | HMH.HP ---
*Admission Date: 05/20/21 *Chief complaint: SOA *History of present illness: Ms. Delgado is a 75-year-old female who presented to the ER from her senior living ([facility]) due to worsening shortness of breath and trouble breathing. Present senior living, she had increased confusion, elevated axillary temperatures, and decreased oxygen saturation on her baseline 3 to 4 L nasal cannula oxygen. Came to the ER for further evaluation. On arrival labs, imaging, work-up initiated. Since did not drastically improved with going up to 5 L nasal cannula oxygen. Was transitioned to Vapotherm. X-ray concerning for increased bilateral reticular pattern, COPD exacerbation. Admitted to medicine for further management. Seen after arriving to the floor. Patient has been transitioned to Vapotherm 50%. Sats in the mid nineties. Tolerating fair p.o. intake. Denies chest pain, nausea, vomiting. [facility] History I have reviewed the patient's past medical history: Yes Medical History: Reports:: Cerebrovascular Accident, Hyperlipidemia, Hypertension Denies:: Diabetes Mellitus Type 1, Diabetes Mellitus Type 2 *Have you ever received a pneumonia vaccine?: Yes *Have you received a flu vaccine this season?: No Laterality Cases: Right: Total Hip Replacement Other Surgeries: Yes: Tubal Ligation - *Social History Smoking Status: Former smoker Tobacco Type: cigarettes Alcohol Intake: never *Occupational Status:: retired *Travel in the last 8 weeks: None Family Hx:: No significant family history Review of Systems - Review of Systems Review of systems:: pertinent systems reviewed and negative unless documented below (14 point review of systems performed, pertinent positives and negatives as per HPI) - *Neurologic Reports weakness, Denies headache(s), Denies seizure-like activity Meds Home Medications Medication Instructions Recorded Confirmed Type Albuterol Sulfate [Proventil-HFA 2 puffs IH QID 01/19/21 05/20/21 History 90mcg/puff Inh] Amlodipine Besylate 5 mg PO DAILY 01/19/21 05/20/21 History Atorvastatin Calcium [Lipitor 80mg 80 mg PO HS 01/19/21 05/20/21 History Tablet*] Omeprazole [Omeprazole 40mg 40 mg PO DAILY 01/19/21 05/20/21 History Capsule] carvediloL [Coreg 25mg Tablet] 25 mg PO BID 01/19/21 05/20/21 History Aspirin [Aspirin 81mg chewable 81 mg PO DAILY 03/16/21 05/20/21 History tab] Acetaminophen 1,000 mg PO Q6HP PRN 05/20/21 05/20/21 History Buspirone HCl [Buspar 10mg 10 mg PO TID 05/20/21 05/20/21 History tablet] Calcium Carbonate 1,000 mg PO Q6HP PRN 05/20/21 05/20/21 History Cetirizine HCl 10 mg PO DAILY 05/20/21 05/20/21 History Escitalopram Oxalate [Lexapro] 10 mg PO DAILY 05/20/21 05/20/21 History Fluticasone Propion/Salmeterol 1 each IH BID 05/20/21 05/20/21 History [Wixela 250-50 Inhub] Ipratropium/Albuterol Sulfate 3 ml IH Q4HP PRN 05/20/21 05/20/21 History [Duoneb 3mL neb] Melatonin 3 mg PO HS 05/20/21 05/20/21 History Propylene Glycol/Peg 400 [Systane 1 drp OU BID 05/20/21 05/20/21 History Gel Eye Drops] Tramadol HCl [Tramadol 50mg 50 mg PO Q6HP PRN 05/20/21 05/20/21 History Tab] Allergies Allergy/AdvReac Type Severity Reaction Status Date / Time Penicillins Allergy Rash Verified 01/20/21 07:57 Exam Vital signs and Labs for Last 24 Hours: Temp Pulse Resp BP Pulse Ox 98.7 F 80 18 104/45 L 94 L 05/20/21 10:00 05/20/21 10:00 05/20/21 10:00 05/20/21 10:00 05/20/21 10:00 Laboratory Results - last 24 hr 05/20/21 04:15: Specimen Source Right brachial, O2 % 4l, ABG pH 7.39, ABG pCO2 36.7, ABG pO2 46.5 L, ABG HCO3 21.5 L, ABG Total CO2 22.6 L, ABG O2 Saturation 82 L*, ABG Base Excess -3.5 L, William Test Acceptable 05/20/21 04:40: WBC 15.3 H, RBC 3.81 L, Hgb 12.5, Hct 39.6, MCV 104.0 H, MCH 32.7 H, MCHC 31.5 L, RDW 14.4, Plt Count 268, MPV 9.2, Neut % (Auto) 87.0 H, Lymph % (Auto) 5.1 L, [place] % (Auto) 6.2, Eos % (Auto) 0.8, Baso %
[2021-05-20 12:35] LABS: Troponin I 0.01 ng/ml (0.00-0.034)
--- NOTE | 2021-05-20 13:33 | SW/DCPLANNER ---
Addendum entered by Mary Lake 05/23/21 10:04: Manasa with [facility] has stated that patient can not come back to [facility] unless requiring 4L or less of O2. Addendum entered by Mary Lake 05/22/21 09:25: I have updated Manasa with [facility] regarding this patient: plan is for discharge tomorrow due to ECHO and CT scan today. Addendum entered by Mary Lake 05/21/21 09:20: I have updated Manasa with [facility] regarding this patient. Manasa has stated that if patient discharges today patient will NOT need an additional COVID swab. Dr Marques stated that if patient can wean down to nasal cannula patient discharge back to [facility] today. Original Note: This patient currently resides at [facility]: I spoke with Manasa and she stated that patient is currently private pay. I will continue to follow up with Manasa until patient is medically stable for discharge.
--- NOTE | 2021-05-20 14:58 | PC.NURSE ---
RESPIRATORY CARE NOTE: PT PLACED ON A 50% VENTURI MASK AT THIS TIME PER DR. MOFFETT VERBAL ORDER; PT SATS REMAIN GREATER THAN 90%. WE WILL CONTINUE MONITORING PT MOVING FORWARD
--- NOTE | 2021-05-20 19:02 | PC.NURSE ---
SHE IS ALERT TO NAME. SOME EPISODES OF CONFUSION NOTED T/O SHIFT. HER O2 HAS BEEN STABLE SINCE SHE WAS PLACED ON 50% VENTI. OTHER VITAL SIGNS HAVE REMAINED STABLE. SHE IS ABLE TO TAKE MEDS WHOLE W/O ISSUE. SHE HAS DENIED N/V/D T/O SHIFT.
[2021-05-21] VITALS (7 sets, daily range): BP systolic 132–144; BP diastolic 49–77; PULSE 78–88; RESP 16–24; TEMP 36.7–36.9; O2SAT 92–95; BMI 19.7
--- NOTE | 2021-05-21 05:23 | PC.NURSE ---
PT IS A&OX3. PT HAS BEEN CONFUSED TO WHERE SHE IS. PT HAS HAD NO C/O THUS FAR THIS SHIFT. PT TOLERATING 50% VENTI MASK T/O NIGHT. PT HAS RESTED MAJORITY OF SHIFT. VSS WILL CONTINUE TO MONITOR.
[2021-05-21 07:41] LABS: Eosinophils # 0.1 K/mm3 (0.0-0.4); Eosinophils % 0.3 % (0.1-12.0); Hematocrit 35.5 % (37.0-47.0); Hemoglobin 11.1 g/dL (12.2-16.2); Lymphocytes # 0.7 K/mm3 (0.7-4.5); Lymphocytes % 5.1 % (10-50); Mean Corpuscular HGB Conc 31.3 g/dL (31.8-35.4); Mean Corpuscular Hemoglobin 32.8 pg (27.0-31.2); Mean Corpuscular Volume 104.7 fl (81-99); Mean Platelet Volume 9.3 fl (7.4-10.4); Monocytes # 0.4 K/mm3 (0.1-1.0); Monocytes % 2.9 % (1.7-9.3); Neutrophils # 12.2 K/mm3 (1.8-7.8); Neutrophils % 91.6 % (37.0-80.0); Platelet Count 255 K/mm3 (142-424); Red Blood Count 3.39 M/mm3 (4.20-5.40); Red Cell Distribution Width 14.6 % (11.5-17.5); White Blood Count 13.3 K/mm3 (4.8-10.8)
[2021-05-21 07:51] LABS: MANUAL DIFFERENTIAL MANUAL DIFFERENTIAL (MANUAL DIFF)
[2021-05-21 08:10] LABS: Chloride 116 mmol/L (98-107); Potassium 4.1 mmoL/L (3.5-5.1); Sodium 145 mmol/L (136-145)
--- NOTE | 2021-05-21 08:11 | HMH.ACPN2 ---
Internal Medicine - PN: Subj *Date: 05/21/21 *Time: 08:11 Interval history: Patient has done well overnight with Venturi mask but is somewhat angry and agitated. She is alert, and oriented x2, but is angry about perceived lack of desire for her residential to have her come back. Exam Vital signs and Labs for Last 24 Hours: Temp Pulse Resp BP Pulse Ox 98.1 F 86 19 132/77 95 05/21/21 04:00 05/21/21 04:00 05/21/21 04:00 05/21/21 04:00 05/21/21 04:00 Laboratory Results - last 24 hr 05/20/21 08:29: Troponin I 0.02 05/20/21 11:15: Troponin I 0.01 05/21/21 07:07: WBC 13.3 H, RBC 3.39 L, Hgb 11.1 L, Hct 35.5 L, MCV 104.7 H, MCH 32.8 H, MCHC 31.3 L, RDW 14.6, Plt Count 255, MPV 9.3, Neut % (Auto) 91.6 H, Lymph % (Auto) 5.1 L, [place] % (Auto) 2.9, Eos % (Auto) 0.3, Baso % (Auto) 0.0 L, Neut # (Auto) 12.2 H, Lymph # (Auto) 0.7, [place] # (Auto) 0.4, Eos # (Auto) 0.1, Baso # (Auto) 0.0 I & O for Last 24 hours: Intake & Output 05/18/21 05/19/21 05/20/21 05/21/21 11:59 11:59 11:59 11:59 Intake Total 120 / 120 Output Total 800 / 800 Balance -680 / -680 Weight 104 lb 15.746 oz 104 lb 6 oz Microbiology Reports for the Last 24 Hours: Microbiology 05/20/21 04:47 Urine,Catheterized Urine Culture - Preliminary NO GROWTH AFTER 24 HOURS Narrative: Previously noted facial drooping but otherwise moving all extremities. Lungs have good air movement. Abdomen soft. No edema or clubbing. Oropharynx clear. Assessment and Plan (1) Acute exacerbation of chronic obstructive airways disease Status: Acute Category: Medical Code(s): J44.1 - Chronic obstructive pulmonary disease with (acute) exacerbation (2) CKD (chronic kidney disease) Status: Chronic Category: Medical Code(s): N18.9 - Chronic kidney disease, unspecified (3) Essential hypertension Status: Chronic Category: Medical Code(s): I10 - Essential (primary) hypertension - Assessment and plan all Dx Assessment and Plan for all problems:: Respiratory status improving. Continue current therapy. Restart patient's tramadol and BuSpar as she may be a little anxious from this. Find out situation from residential for care management. Check ABG to make sure she is not retaining and having some mental status changes
[2021-05-21 08:13] LABS: Anion Gap 12.1 mEq/L (5-15); Blood Urea Nitrogen 31 mg/dl (7-17); Calcium 8.7 mg/dl (8.4-10.2); Carbon Dioxide 21 mmol/L (22.0-30.0); Creatinine Clearance Estimated 33 mL/min (50-200); Estimated Glomerular Filt Rate 48 ml/min (>60); GFR (African American) 59 ML/MIN (>60); Glucose 130 mg/dl (74-100)
[2021-05-21 08:18] LABS: ABG Base Excess -7.8 mmol/L (-2.4-2.3); ABG HCO3 17.2 mmhg (22.0-26.0); ABG Oxygen Saturation 90 % (90-100); ABG PCO2 29.4 mmhg (35.0-45.0); ABG PH 7.39 mmol/L (7.35-7.45); ABG PO2 61.1 mmhg (80-100); ABG TCO2 18.1 mmhg (23-27)
[2021-05-21 08:20] LABS: Source Right Brachial
[2021-05-21 10:27] LABS: Hypochromasia 2+; Lymphocytes % 7 % (10-50); Macrocytosis 2+; Monocytes % 3 % (2-9); Neutrophils % 90 % (42-76); Platelet Estimate Normal; Total Cells Counted 100
--- NOTE | 2021-05-21 19:38 | PC.NURSE ---
Addendum entered by Kun Rojas RN 05/21/21 19:39: 6 L NC Original Note: Pt remains on 5 L NC. VSS. Pt calm this afternoon. with no c/o or NAD at this time.
[2021-05-22] VITALS (9 sets, daily range): BP systolic 132–187; BP diastolic 63–74; PULSE 75–92; RESP 16–24; TEMP 36.6–37; O2SAT 91–96; BMI 19.8
--- NOTE | 2021-05-22 04:42 | PC.NURSE ---
PT HAS ONLY BEEN ALERT TO SELF THIS SHIFT. PT AWAKES CONFUSED, NOT KNOWING WHERE SHE IS OR WHY. PT WORE 6LNC AT BEGINNING OF SHIFT. HAD TO BE SWITCHED BACK TO 50% VENTI D/T ANXIETY AND DECREASED O2. PT 90-91% AT THIS TIME. PT HAS NEEDED FREQUENT REDIRECTION ON KEEPING HER OXYGEN ON. HAS SLEPT INTERMITTENTLY THIS SHIFT. BED SAFETY APPLIED. F/C PRESENT DRAINING LIGHT YELLOW URINE. PT HAS ATTEMPTED TO HAVE A BM MULTIPLE TIMES WITH NO SUCCESS. VSS WILL CONTINUE TO MONITOR.
[2021-05-22 07:31] LABS: Basophils # 0.1 K/mm3 (0-0.2); Basophils % 0.4 % (0.1-2.0); Eosinophils # 0.2 K/mm3 (0.0-0.4); Eosinophils % 1.1 % (0.1-12.0); Hematocrit 39.6 % (37.0-47.0); Hemoglobin 12.5 g/dL (12.2-16.2); Lymphocytes # 0.5 K/mm3 (0.7-4.5); Lymphocytes % 3.4 % (10-50); Mean Corpuscular HGB Conc 31.5 g/dL (31.8-35.4); Mean Corpuscular Hemoglobin 32.9 pg (27.0-31.2); Mean Corpuscular Volume 104.6 fl (81-99); Monocytes # 0.5 K/mm3 (0.1-1.0); Monocytes % 3.8 % (1.7-9.3); Neutrophils # 13.1 K/mm3 (1.8-7.8); Neutrophils % 91.5 % (37.0-80.0); Platelet Count 314 K/mm3 (142-424); Red Blood Count 3.79 M/mm3 (4.20-5.40); Red Cell Distribution Width 14.9 % (11.5-17.5); White Blood Count 14.3 K/mm3 (4.8-10.8)
[2021-05-22 07:34] LABS: MANUAL DIFFERENTIAL MANUAL DIFFERENTIAL (MANUAL DIFF)
--- NOTE | 2021-05-22 07:37 | CA_ITS ---
APPROVED REPORT EXAM: Comprehensive 2D, Doppler, and color-flow Echocardiogram Graphic Engineer: Lydia Mehta CRT Ht: 5 ft 1 in Wt: 104lbs BSA: 1.43 BP: 132/77 mmHg Indications: COPD, Shortness of Breath, CVA/TIA, Hyperlipidemia, Hypertension/HDD 2D Dimensions LVOT 1.83 cm (M/F) 1.5-2.5 LA Volume 23.00 mL LA Volume Index 16.08 mL/m2 (M/F) 16-34 M-Mode Dimensions RVDd 2.49 cm (0.9-2.6) LA Diam 3.35 cm (1.9-4.0) LVDd 5.17 cm (3.5-5.7) Ao Diam 3.59 cm (2.0-3.7) LVDs 2.77 cm (3.5-5.7) IVSd 0.62 cm (0.6-1.1) PWd 0.40 cm (0.6-1.1) EF (Teich) 77.50% FS 46.40% EDV (Teich) 127.80 mL TAPSE 2.10 (<1.7) ESV (Teich) 28.80 mL LV Diastology E Decel Time 150.00 (160-240 msec) E/A Ratio 0.8 MED E' 11.30 (< 7 cm/sec) MED A' 13.50 cm/s E'/MED E' Ratio 6.87 (>14) LAT E' 9.00 (<10 cm/sec) LAT A' 11.30 cm/s E/LAT E' Ratio 8.62 (>14) Aortic Valve AO Peak GR. 6.10 mmHg Mitral Valve MV E Max Naun. 78.00 (40-130 cm/s) MV A Velocity 98.00 (40-130 cm/s) E/A Ratio 0.79 MV Decel. Time 150.00 (160-240 ms) MV PHT 44.00 ms Pulmonary Valve PV Peak Velocity 189.00 (50-150 cm/s) Tricuspid Valve TR P. Velocity 340.00 cm/s RAP Estimate 10.00 mmHg RVSP 56.20 mmHg Left Ventricle Left atrium is mildly enlarged, left ventricle is normal size, mild concentric left ventricular hypertrophy, visually estimated ejection fraction 55% with no regional wall motion abnormality, endocardial surfaces are poorly visualized, diastolic parameters are inconclusive in the study. Right Ventricle Right atrium and right ventricle are mildly enlarged with normal contractility. Aortic Valve Aortic valve is thickened and calcified without Doppler evidence of aortic stenosis or aortic insufficiency. Mitral Valve Mitral valve is minimally thickened, there is mild mitral regurgitation. Tricuspid Valve Tricuspid valve grossly normal, there is mild tricuspid regurgitation, calculated right ventricular systolic pressure is 56 mmHg. Pulmonic Valve Pulmonic valve is poorly visualized. Great Vessels Aortic root is normal size. Inferior vena cava is normal size with normal inspiratory collapse. Pericardium No significant pericardial effusion noted. Conclusion 1. Biatrial enlargement, normal left ventricular size, mild concentric left ventricular hypertrophy, visually estimated ejection fraction 55% with no regional wall motion abnormality, diastolic parameters are inconclusive. 2. Mildly enlarged right ventricle with normal contractility. 3. Mild mitral and tricuspid regurgitation, calculated right ventricular systolic pressure is 56 mmHg. 4. No significant pericardial effusion noted. 5. Inferior vena cava is normal size with normal inspiratory collapse. Electronically signed by : Phuc Sr MD 05/22/2021 14:57:39
[2021-05-22 07:47] LABS: Chloride 116 mmol/L (98-107); Potassium 4.6 mmoL/L (3.5-5.1); Sodium 143 mmol/L (136-145)
[2021-05-22 07:50] LABS: Blood Urea Nitrogen 31 mg/dl (7-17); Creatinine Clearance Estimated 33 mL/min (50-200); Estimated Glomerular Filt Rate 48 ml/min (>60); GFR (African American) 59 ML/MIN (>60)
[2021-05-22 07:51] LABS: Anion Gap 11.6 mEq/L (5-15); Calcium 8.4 mg/dl (8.4-10.2); Carbon Dioxide 20 mmol/L (22.0-30.0); Glucose 148 mg/dl (74-100)
--- NOTE | 2021-05-22 07:55 | CT_ITS ---
PROCEDURE: CT CHEST WO CON CLINICAL INDICATION: High resolution CT for fibrotic changes on x-ray COMPARISON: CR XR CHEST PORTABLE from 05/20/2021 TECHNIQUE: Axial images obtained with sagittal and coronal reformats. All CT scans at the facility use one or more dose reduction, viz: automated exposure control, ma/kV adjustment per patient size (including targeted exams where dose is matched to indication, i.e. head), or iterative reconstruction technique. FINDINGS: HEART AND MEDIASTINAL STRUCTURES: Cardiac size is normal, there is mild aortic tortuosity. There is diffuse arthrosclerotic calcification of ascending aorta and aortic arch with mild diffuse scattered arteriosclerotic calcification of the descending thoracic aorta as well. There is no pulmonary congestion. LUNGS AND PLEURAL SPACES: There is somewhat ill-defined opacities in the apical posterior segment left upper lobe which suggest an acute pneumonic infiltrate, doubt chronic interstitial fibrotic change. There is a moderately large left pleural effusion with fluid layering on the left lung approximately to the level of the hilum. There likely is pneumonic infiltrate in the posterior basilar segment left lower lobe but difficult to be certain because of the pleural effusion. There is minimal ill-defined pneumonic infiltrate posterior basal segment right lower lobe and there is a small reactive pleural effusion as well. BONY STRUCTURES: There are mild multilevel degenerate changes of the thoracic spine. UPPER ABDOMEN: Unremarkable. ADDITIONAL FINDINGS: No other significant abnormalities. IMPRESSION: Findings most consistent with acute pneumonic infiltrate apical posterior segment left upper lobe and posterior basilar segment left lower lobe and minimally involving the posterior basilar segment right lower lobe. There are bilateral reactive pleural effusions larger left side than right. I doubt significant interstitial fibrotic change in either lung Dictated by: Dr. Arsh Seaman MD 05/22/2021 09:46 Dr. Arsh Seaman MD in [place] 05/22/2021 09:46
--- NOTE | 2021-05-22 07:56 | HMH.ACPN2 ---
Internal Medicine - PN: Subj *Date: 05/22/21 *Time: 07:56 Interval history: Patient is in much better spirits than she was yesterday, is wearing a Venturi mask but is only about assisted on her face. Apparently she was switched over to this because she would not keep her nasal cannula in position. States that her breathing is somewhat better. Exam Vital signs and Labs for Last 24 Hours: Temp Pulse Resp BP Pulse Ox 97.9 F 75 18 144/67 H 96 05/22/21 03:42 05/22/21 03:42 05/22/21 03:42 05/22/21 03:42 05/22/21 05:45 Laboratory Results - last 24 hr 05/21/21 07:07: Total Counted 100, Neutrophils % (Manual) 90 H, Lymphocytes % (Manual) 7 L, Monocytes % (Manual) 3, Platelet Estimate Normal, Hypochromasia 2+, Macrocytosis 2+ 05/21/21 07:07: Sodium 145, Potassium 4.1, Chloride 116 H, Carbon Dioxide 21 L, Anion Gap 12.1, BUN 31 H, Creatinine 1.10 H, Estimated Creat Clear 33, Estimated GFR 48 L, Est GFR ( Amer) 59 D, Glucose 130 H, Calcium 8.7, Magnesium 2.0 D 05/21/21 08:05: Specimen Source Right brachial, O2 % 7 lpm, ABG pH 7.39, ABG pCO2 29.4 L, ABG pO2 61.1 L, ABG HCO3 17.2 L, ABG Total CO2 18.1 L, ABG O2 Saturation 90, ABG Base Excess -7.8 L 05/22/21 07:10: WBC 14.3 H, RBC 3.79 L, Hgb 12.5, Hct 39.6, MCV 104.6 H, MCH 32.9 H, MCHC 31.5 L, RDW 14.9, Plt Count 314, MPV 10.0, Neut % (Auto) 91.5 H, Lymph % (Auto) 3.4 L, Wilkin % (Auto) 3.8, Eos % (Auto) 1.1, Baso % (Auto) 0.4, Neut # (Auto) 13.1 H, Lymph # (Auto) 0.5 L, Wilkin # (Auto) 0.5, Eos # (Auto) 0.2, Baso # (Auto) 0.1 05/22/21 07:10: Sodium 143, Potassium 4.6, Chloride 116 H, Carbon Dioxide 20 L, Anion Gap 11.6, BUN 31 H, Creatinine 1.10 H, Estimated Creat Clear 33, Estimated GFR 48 L, Est GFR ( Amer) 59, Glucose 148 H, Calcium 8.4 I & O for Last 24 hours: Intake & Output 05/19/21 05/20/21 05/21/21 05/22/21 11:59 11:59 11:59 11:59 Intake Total 240 / 240 440 / 440 Output Total 800 / 800 1250 / 1250 Balance -560 / -560 -810 / -810 Weight 104 lb 15.746 oz 104 lb 6 oz 104 lb 11.2 oz Microbiology Reports for the Last 24 Hours: Microbiology 05/20/21 04:40 Blood Blood Culture - Preliminary NO GROWTH AFTER 48 HOURS 05/20/21 04:47 Urine,Catheterized Urine Culture - Final NO GROWTH AFTER 48 HOURS 05/20/21 04:40 Blood Blood Culture - Preliminary NO GROWTH AFTER 48 HOURS Narrative: , More pleasant until the prospect of going back to her residential as mentioned. Has good air movement with mild rhonchi bilaterally. No edema. Heart rate regular. Previous neurologic deficits noted, is more alert and talkative this morning. Assessment and Plan (1) Acute exacerbation of chronic obstructive airways disease Status: Acute Category: Medical Code(s): J44.1 - Chronic obstructive pulmonary disease with (acute) exacerbation (2) CKD (chronic kidney disease) Status: Chronic Category: Medical Code(s): N18.9 - Chronic kidney disease, unspecified (3) Essential hypertension Status: Chronic Category: Medical Code(s): I10 - Essential (primary) hypertension - Assessment and plan all Dx Assessment and Plan for all problems:: Abnormal chest x-ray with reticular opacities in the chest x-ray. I am going to get a high-resolution CT to see if there is a fibrotic component that might be contributing to her dyspnea. Echo today and 1 dose of Lasix. See if this helps clear out lungs. Creatinine is improving. Continue Rocephin and azithromycin for pneumonia. Mental status is improving. Continue to respect DNR status.
[2021-05-22 08:39] LABS: Anisocytosis 1+; Eosinophils % 1 % (0-3); Lymphocytes % 7 % (10-50); Macrocytosis 1+; Monocytes % 2 % (2-9); Neutrophils % 90 % (42-76); Platelet Estimate Normal; Total Cells Counted 100
--- NOTE | 2021-05-22 11:36 | CT_ITS ---
PROCEDURE: CT HEAD/BRAIN WO CON CLINICAL INDICATION: ams COMPARISON: CT CT HEAD/BRAIN WO CON from 03/16/2021 TECHNIQUE: Axial images obtained. All CT scans at the facility use one or more dose reduction, viz: automated exposure control, ma/kV adjustment per patient size (including targeted exams where dose is matched to indication, i.e. head), or iterative reconstruction technique. FINDINGS: No midline shift, mass effect, intracranial hemorrhage, hydrocephalus, or extra-axial fluid collection is evident. The basilar cisterns are prominent. The sylvian fissures are somewhat prominent. The ventricular system is centrally normal for age. Again noted are prominent bilateral periventricular hypodensities consistent with chronic ischemic white matter changes. Also again noted is the focal area of low-density and or encephalomalacia abutting the falx cerebri high in the frontal parietal lobe in the anterior cerebral artery to distribution. This is stable and unchanged from previous exam and consistent with an old ischemic infarct. There is diffuse calcification of the falx cerebri. The calvarium has an unremarkable appearance. No mastoid effusion. No sinus air-fluid level. IMPRESSION: Findings of age-appropriate cortical atrophy and prominent bilateral periventricular ischemic white matter changes along with a stable old ischemic infarct right anterior cerebral artery distribution, no definite acute intracranial pathology noted Dictated by: Dr. Arsh Seaman MD 05/22/2021 12:14 Dr. Arsh Seaman MD in [place] 05/22/2021 12:14
--- NOTE | 2021-05-22 20:11 | PC.NURSE ---
Pt has been more confused, this evening. Made Dr. Marques aware and he okayed and ABG to be done. Spoke with Deric in [place] and she is going to come and do. Pt remains on 6 L NC. VSS. Has had good u/o this shift and responded well to lasix.
[2021-05-22 20:36] LABS: ABG Base Excess -1.3 mmol/L (-2.4-2.3); ABG HCO3 22.6 mmhg (22.0-26.0); ABG Oxygen Saturation 91 % (90-100); ABG PCO2 32.7 mmhg (35.0-45.0); ABG PH 7.46 mmol/L (7.35-7.45); ABG PO2 59.3 mmhg (80-100); ABG TCO2 23.6 mmhg (23-27)
[2021-05-22 20:37] LABS: Allen's Test Acceptable; Oxygen 6L %; Source Left Radial
[2021-05-23] VITALS (9 sets, daily range): BP systolic 147–171; BP diastolic 67–80; PULSE 85–96; RESP 16–20; TEMP 36.4–37.5; O2SAT 92–97
--- NOTE | 2021-05-23 06:01 | PC.NURSE ---
pt has gotten more confused as shift has progressed, has been agitated, has kicked a tech out of her room, has remained on 6L NC with no complaints of SOA, did complain of a headache and was treated per carline QUICK at bedside draining clear yellow urine
[2021-05-23 08:09] LABS: Basophils % 0.1 % (0.1-2.0); Eosinophils % 0.1 % (0.1-12.0); Hematocrit 37.4 % (37.0-47.0); Hemoglobin 11.9 g/dL (12.2-16.2); Lymphocytes # 0.5 K/mm3 (0.7-4.5); Lymphocytes % 4.5 % (10-50); Mean Corpuscular HGB Conc 31.9 g/dL (31.8-35.4); Mean Corpuscular Hemoglobin 32.7 pg (27.0-31.2); Mean Corpuscular Volume 102.6 fl (81-99); Mean Platelet Volume 9.1 fl (7.4-10.4); Monocytes # 0.3 K/mm3 (0.1-1.0); Monocytes % 2.6 % (1.7-9.3); Neutrophils # 10.1 K/mm3 (1.8-7.8); Neutrophils % 92.6 % (37.0-80.0); Platelet Count 295 K/mm3 (142-424); Red Blood Count 3.65 M/mm3 (4.20-5.40); Red Cell Distribution Width 15.3 % (11.5-17.5)
[2021-05-23 08:18] LABS: MANUAL DIFFERENTIAL MANUAL DIFFERENTIAL (MANUAL DIFF)
[2021-05-23 08:24] LABS: Chloride 107 mmol/L (98-107); Potassium 3.4 mmoL/L (3.5-5.1); Sodium 141 mmol/L (136-145)
[2021-05-23 08:27] LABS: Anion Gap 11.4 mEq/L (5-15); Blood Urea Nitrogen 31 mg/dl (7-17); Calcium 8.3 mg/dl (8.4-10.2); Carbon Dioxide 26 mmol/L (22.0-30.0); Creatinine Clearance Estimated 34 mL/min (50-200); Estimated Glomerular Filt Rate 48 ml/min (>60); GFR (African American) 59 ML/MIN (>60); Glucose 130 mg/dl (74-100)
[2021-05-23 08:51] LABS: Hypochromasia 2+; Lymphocytes % 6 % (10-50); Macrocytosis 1+; Monocytes % 1 % (2-9); Neutrophils % 93 % (42-76); Platelet Estimate Normal; Total Cells Counted 100
--- NOTE | 2021-05-23 09:08 | HMH.DCSUM ---
General - General Admission date:: 05/20/21 Discharge date: 05/23/21 HPI HPI: Ms. Delgado is a 75-year-old female who presented to the ER from her alf ([facility]) due to worsening shortness of breath and trouble breathing. Present alf, she had increased confusion, elevated axillary temperatures, and decreased oxygen saturation on her baseline 3 to 4 L nasal cannula oxygen. Came to the ER for further evaluation. On arrival labs, imaging, work-up initiated. Since did not drastically improved with going up to 5 L nasal cannula oxygen. Was transitioned to Vapotherm. X-ray concerning for increased bilateral reticular pattern, COPD exacerbation. Admitted to medicine for further management. Seen after arriving to the floor. Patient has been transitioned to Vapotherm 50%. Sats in the mid nineties. Tolerating fair p.o. intake. Denies chest pain, nausea, vomiting. Hospital Course Hospital Course: Patient was admitted, found to have lobar pneumonia. Covid testing and influenza testing negative. Patient responded well to ceftriaxone and azithromycin with slightly improved oxygenation capabilities but continued to require 5 to 6 L nasal cannula. She had a lot of issues with anxiety and some delirium in the hospital. This was felt to be due to steroids, and I talked at length with her son and we decided to try to get her back in her familiar alf environment to help with delirium and stop steroids. We will do this today. The alf will be able to do 5 L nasal cannula. We will continue her BuSpar, she will be on a Z-Zaid and cefdinir therapy, if over the next couple of days her delirium worsens will consider Seroquel therapy. We will stop steroids as she is not been wheezing. She will need CBC and BMP in 2 days. She will need DuoNebs every 6 hours as needed. Objective Vital signs: Temp Pulse Resp BP Pulse Ox 99.5 F 96 H 19 171/71 H 94 L 05/23/21 07:42 05/23/21 07:42 05/23/21 07:42 05/23/21 07:42 05/23/21 07:42 no acute distress Comments: Patient is pleasant, recognizes me, and seems to understand she is in the hospital but then discusses how she had 2 babies last night. - *Routine HEENT Exam Head: Present: normocephalic Eye: Present: EOMI, PERRL ENT: Present: mucous membranes moist - *Routine Neck Exam Present: supple - *Routine Respiratory Exam Present: rhonchi Comments: Symmetric air entry. Rhonchi have improved over baseline - *Routine Cardiovascular Exam Present: RRR - *Routine Abdominal Exam Present: soft, normoactive bowel sounds. Absent: tenderness - *Routine Extremities Exam Absent: cyanosis, clubbing, edema - *Routine Skin Exam Present: warm. Absent: rash - *Routine Neurological Exam Previously noted facial asymmetry. - Detailed Eye Exam Eyelids: Bilateral normal inspection Results Labs on day of discharge: Labs from last 24 hours 05/23/21 05/23/21 05/22/21 07:26 07:26 17:39 WBC 11.0 H RBC 3.65 L Hgb 11.9 L Hct 37.4 MCV 102.6 H MCH 32.7 H MCHC 31.9 RDW 15.3 Plt Count 295 MPV 9.1 Neut % (Auto) 92.6 H Lymph % (Auto) 4.5 L [place] % (Auto) 2.6 Eos % (Auto) 0.1 Baso % (Auto) 0.1 Neut # (Auto) 10.1 H Lymph # (Auto) 0.5 L [place] # (Auto) 0.3 Eos # (Auto) 0.0 Baso # (Auto) 0.0 Total Counted 100 Neutrophils % (Manual) 93 H Lymphocytes % (Manual) 6 L Monocytes % (Manual) 1 L Platelet Estimate Normal Hypochromasia 2+ Macrocytosis 1+ Specimen Source Left radial O2 % 6l ABG pH 7.46 H ABG pCO2 32.7 L ABG pO2 59.3 L ABG HCO3 22.6 ABG Total CO2 23.6 ABG O2 Saturation 91 ABG Base Excess -1.3 William Test Acceptable Sodium 141 Potassium 3.4 L D Chloride 107 Carbon Dioxide 26 Anion Gap 11.4 BUN 31 H Creatinine 1.10 H Estimated Creat Clear 34 Estimated GFR 4
--- NOTE | 2021-05-23 09:53 | PC.NURSE ---
pt is plesantly confused and has a dry cough at this time. She is unable to produce a sample.
[2021-05-23 18:37] LABS: T4 (Thyroxine) 10.2 ug/dl (5.53-11.0)
[2021-05-23 18:51] LABS: Thyroid Stimulating Hormone 0.53 uIU/mL (0.465-4.68)
[2021-05-23 19:20] LABS: Ammonia < 9 umol/L (9-30)
--- NOTE | 2021-05-23 20:27 | PC.NURSE ---
Pt has been more agitated and confused this shift, even with family members. Have spoke with Marty and med changes have been made. This afternoon pt has been resistive to care.Remains on 4 L NC. Did get an order for haldol IM 0.5 mg q 6 prn. Ammonia level drawn and sent to lab, and is 9.
--- NOTE | 2021-05-23 23:40 | PC.NURSE ---
Addendum entered by Judy Davis RN 05/23/21 23:56: Received return call from Marty (Gregory Delgado) and notified him of patient being moved to room 205. Original Note: Call SARAH Godinez left voice mail to inform him of patient being moved to room 205.
[2021-05-24] VITALS: BP 162/75; PULSE 78; RESP 20; TEMP 36.9; O2SAT 97
[2021-05-24 04:00] VITALS: BP 152/62; PULSE 73; RESP 20; TEMP 37.1; O2SAT 91
[2021-05-24 05:00] VITALS: BMI 21.2
[2021-05-24 08:00] VITALS: BP 123/86; PULSE 102; RESP 18; TEMP 36.8; O2SAT 91
--- NOTE | 2021-05-24 09:24 | HMH.ACPN ---
Internal Medicine - PN: Subj *Date: 05/24/21 *Time: 09:24 Exam Vital signs and Labs for Last 24 Hours: Temp Pulse Resp BP Pulse Ox 98.2 F 102 H 18 123/86 91 L 05/24/21 08:00 05/24/21 08:00 05/24/21 08:00 05/24/21 08:00 05/24/21 08:00 Laboratory Results - last 24 hr 05/23/21 07:21: TSH 0.53, Thyroxine (T4) 10.2 05/23/21 19:00: Ammonia < 9 L I & O for Last 24 hours: Intake & Output 05/21/21 05/22/21 05/23/21 05/24/21 23:59 23:59 23:59 23:59 Intake Total 320 / 560 360 / 360 120 / 120 Output Total 650 / 1250 2900 / 3600 3650 / 4125 675 / 675 Balance -330 / -690 -2540 / -3240 -3530 / -4005 -675 / -675 Weight 47.344 kg 47.491 kg 48.2 kg 50.972 kg Assessment and Plan (1) Acute exacerbation of chronic obstructive airways disease Status: Acute Category: Medical Code(s): J44.1 - Chronic obstructive pulmonary disease with (acute) exacerbation (2) CKD (chronic kidney disease) Status: Chronic Category: Medical Code(s): N18.9 - Chronic kidney disease, unspecified (3) Essential hypertension Status: Chronic Category: Medical Code(s): I10 - Essential (primary) hypertension (4) Pneumonia Status: Acute Category: Medical Code(s): J18.9 - Pneumonia, unspecified organism (5) Acute delirium Status: Acute Category: Medical Code(s): R41.0 - Disorientation, unspecified (6) Multi-infarct dementia Status: Acute Category: Medical Code(s): F01.50 - Vascular dementia without behavioral disturbance The patient's infection will respond to the chosen ABx?: Yes Is the patient receiving the right drug, dose, and route?: Yes Could a more targeted ABx be ordered?: No
--- NOTE | 2021-05-24 11:34 | PC.NURSE ---
iv and crowley discontinued. pt tolerated well
[2021-05-24 11:48] VITALS: O2SAT 92
--- NOTE | 2021-05-24 13:28 | PC.NURSE ---
pt leaving with EMS at this time
== END 2021-05-24 13:30 | DRG 193 ==
LOC: ER 04:39 → 2ND 07:14
PROVIDERS: Admitting Provider Family Medicine; Emergency Provider Emergency Medicine; PCP Internal Medicine Adolescent Medicine; Visit Provider Internal Medicine Adolescent Medicine
DX: J18.9 Pneumonia, unspecified organism (principal); J96.21 Acute and chronic respiratory failure with hypoxia; J44.1 Chronic obstructive pulmonary disease with (acute) exacerbation; J44.0 Chronic obstructive pulmonary disease with (acute) lower respiratory infection; N18.9 Chronic kidney disease, unspecified; I12.9 Hypertensive chronic kidney disease with stage 1 through stage 4 chronic kidney disease, or unspecified chronic kidney disease; Z20.822 Contact with and (suspected) exposure to COVID-19; F01.50 Vascular dementia, unspecified severity, without behavioral disturbance, psychotic disturbance, mood disturbance, and anxiety; Z87.891 Personal history of nicotine dependence; Z86.73 Personal history of transient ischemic attack (TIA), and cerebral infarction without residual deficits; Z96.641 Presence of right artificial hip joint; E78.5 Hyperlipidemia, unspecified; R41.0 Disorientation, unspecified; T38.0X5A Adverse effect of glucocorticoids and synthetic analogues, initial encounter; F41.9 Anxiety disorder, unspecified
CPT/HCPCS: 36415; 70450; 71045; 71250; 80048; 80053; 81001; 82140; 82803; 83605; 83735; 84145; 84436; 84443; 84484; 85007; 85025; 85651; 86140; 87040; 87086; 93005; 93306; 94640; 94760; 94761; 96365; 96367; 96375; 99285; C9803; J0456; U0003; U0005

== ENCOUNTER 2022-09-24 16:32 | Inpatient (IN) | payer MEDICARE, BC, SELFPAY ==
[2022-09-24] VITALS (18 sets, daily range): BP systolic 97–128; BP diastolic 52–67; PULSE 83–114; RESP 21–38; TEMP 36.8–39.1; O2SAT 89–99; BMI 20.5
--- NOTE | 2022-09-24 16:35 | ECG_ITS ---
APPROVED REPORT Exam: Resting ECG HR:112 bpm ECG Measurements Heart Rate 112 AXES OK 187 P 66 QRSd 81 QRS 57 QT 336 T 68 QTc 403 Conclusion SINUS TACHYCARDIA MINIMAL ST DEPRESSION [0.025+ mV ST DEPRESSION] ABNORMAL RHYTHM ECG UNCONFIRMED REPORT Electronically signed by : Nas Marques MD 09/26/2022 12:11:11
[2022-09-24 16:46] LABS: ABG Base Excess -5.1 mmol/L (-2.4-2.3); ABG HCO3 20.1 mmhg (22.0-26.0); ABG Oxygen Saturation 87 % (90-100); ABG PCO2 35.2 mmhg (35.0-45.0); ABG PH 7.38 mmol/L (7.35-7.45); ABG PO2 53.6 mmhg (80-100); ABG TCO2 21.2 mmhg (23-27)
[2022-09-24 16:49] LABS: Allen's Test Acceptable; Oxygen NRB %; Source Right Brachial
--- NOTE | 2022-09-24 17:14 | XR_ITS ---
PROCEDURE INFORMATION: Exam: XR Chest Exam date and time: 09/24/2022 5:37 PM Age: 77 years old Clinical indication: Shortness of breath; Additional info: SOB TECHNIQUE: Imaging protocol: Radiologic exam of the chest. Views: 1 view. COMPARISON: 1. CT CHEST WO CON 05/22/2021 9:24 AM 2. CR XR CHEST PORTABLE 05/20/2021 4:36 AM FINDINGS: Lungs: Emphysema. Patchy widespread pulmonary opacities are unchanged and may represent chronic scarring. Pleural spaces: Unremarkable. No pleural effusion. No pneumothorax. Heart/Mediastinum: Unremarkable. No cardiomegaly. Vasculature: Vascular calcifications. Bones/joints: Unremarkable. IMPRESSION: Patchy widespread pulmonary opacities are unchanged and may represent chronic scarring. Superimposed atypical infection ground-glass opacities would be difficult to identify in this patient. Please exclude atypical infection clinically.
--- NOTE | 2022-09-24 17:28 | PC.NURSE ---
RT at bedside to place pt on vapotherm
--- NOTE | 2022-09-24 17:34 | HMH.EDGENADL ---
Discharge Plan Disposition Patient Disposition: Admitted As Inpatient Condition: Serious Chief Complaint: Shortness of Breath/Dyspnea Prescriptions Prescriptions: No Action atorvastatin 80 MG tablet 80 mg PO HS carvedilol 25 MG tablet 25 mg PO BID amlodipine 5 MG tablet 5 mg PO DAILY Rx Instructions: HOLD FOR BBP <100, DBP <80, OR HR <80 omeprazole 40 MG capsule,delayed release(DR/EC) 40 mg PO DAILY albuterol sulfate 200 PUFFS HFA aerosol inhaler 2 puffs IH QID escitalopram oxalate 10 MG tablet 10 mg PO DAILY fluticasone propion-salmeterol 1 EACH blister with device 1 each IH BID ipratropium-albuterol 3 ML solution for nebulization 3 ml IH Q4HP PRN (Reason: SHORTNESS OF AIR) cetirizine 10 MG tablet 10 mg PO DAILY melatonin 3 MG tablet 3 mg PO HS tramadol 50 MG tablet 50 mg PO Q6HP PRN (Reason: PAIN) acetaminophen 500 MG tablet 1,000 mg PO Q6HP PRN (Reason: PAIN/FEVER) calcium carbonate 500 MG tablet 1,000 mg PO Q6HP PRN (Reason: INDEGESTION) buspirone 10 MG tablet 10 mg PO TID peg 400-propylene glycol 10 ML drops,gel 1 drp OU BID azithromycin 250 MG tablet 250 mg PO DIRECTED Qty: 6 0RF Rx Instructions: Take two (2) tablets on day #1, then one (1) tablet day #2 thru #5 cefdinir 300 MG capsule 300 mg PO BID Qty: 14 0RF aspirin 81 MG tablet,chewable 81 mg PO DAILY Clinical Impressions Clinical Impression: HCAP (healthcare-associated pneumonia), Acute and chronic respiratory failure with hypoxia, Elevated troponin, Sepsis, Acute exacerbation of chronic obstructive pulmonary disease Discharge ED Provider: Serg Gerber General Adult HPI General Chief complaint: Shortness of Breath/Dyspnea Stated complaint: Low O2 sat Time Seen by Provider: 09/24/22 17:34 Mode of Arrival: EMS Source of Information: EMS Limitations: No Limitations Description of Symptoms (Recalled from ER Triage Doc. by RN): pt to ED from [facility] with respiratory distress. per staff pt has had a cough and low grade fever over the last week. on arrival pt is labored in breathing and hypoxic. History of Present Illness HPI narrative: The patient is brought in by ambulance from [facility] with respiratory distress. The patient tells me that she does not know whether she is short of breath but apparently was hypoxic at the longterm. Had to be put on nonrebreather mask on the way in. Denies chest pain. Nursing staff reported that she has a cough and a low-grade fever for 1 week. Patient denies leg pain or swelling. She was given 2 nebulizer treatments before arrival in the emergency department. Respiratory therapy has attended to her prior to my arrival in the room and she has been started on Vapotherm. She states that she is on oxygen all the time, she believes 4 L. She says she is diagnosed with COPD. Former smoker. Related Data Home Medications Medication Instructions Recorded Confirmed albuterol sulfate 90 mcg/actuation 2 puffs IH QID Breathing problems 01/19/21 05/20/21 aerosol inhaler amlodipine 5 mg tablet 5 mg PO DAILY Hypertension 01/19/21 05/20/21 atorvastatin 80 mg tablet 80 mg PO HS Cholesterol 01/19/21 05/20/21 carvedilol 25 mg tablet 25 mg PO BID Hypertension 01/19/21 05/20/21 omeprazole 40 mg capsule,delayed 40 mg PO DAILY GERD 01/19/21 05/20/21 release aspirin 81 mg chewable tablet 81 mg PO DAILY Blood thinner 03/16/21 05/20/21 acetaminophen 500 mg tablet 1,000 mg PO Q6HP PRN PAIN/FEVER 05/20/21 05/20/21 buspirone 10 mg tablet 10 mg PO TID Anxiety 05/20/21 05/20/21 calcium carbonate 500 mg calcium 1,000 mg PO Q6HP PRN INDEGESTION 05/20/21 05/20/21 (1,250 mg) tablet cetirizine 10 mg tablet 10 mg PO DAILY ALLERGIES 05/20/21 05/20/21 escitalopram oxalate 10 mg tablet 10 mg PO DAILY Anxiety 05/20/21 05/20/21 fluticasone 250 mcg-salmeterol 50 1 each
[2022-09-24 17:39] LABS: Microscopic, Urine URINE MICROSCOPIC (MICROSCOPIC)
[2022-09-24 17:42] LABS: Basophils # 0.1 K/mm3 (0-0.2); Basophils % 0.3 % (0.1-2.0); Eosinophils % 0.1 % (0.1-12.0); Hematocrit 38.9 % (37.0-47.0); Hemoglobin 11.9 g/dL (12.2-16.2); Lymphocytes # 1.4 K/mm3 (0.7-4.5); Lymphocytes % 4.7 % (10-50); Mean Corpuscular HGB Conc 30.5 g/dL (31.8-35.4); Mean Corpuscular Hemoglobin 27.7 pg (27.0-31.2); Mean Corpuscular Volume 90.7 fl (81-99); Mean Platelet Volume 8.3 fl (7.4-10.4); Monocytes # 0.9 K/mm3 (0.1-1.0); Monocytes % 2.9 % (1.7-9.3); Neutrophils # 26.9 K/mm3 (1.8-7.8); Platelet Count 328 K/mm3 (142-424); Red Blood Count 4.29 M/mm3 (4.20-5.40); Red Cell Distribution Width 14.9 % (11.5-17.5); White Blood Count 29.3 K/mm3 (4.8-10.8)
[2022-09-24 17:45] LABS: Alanine Aminotransferase 18 U/L (12-78); Albumin Level 3.6 g/dl (3.5-5.0); Albumin/Globulin Ratio 0.9 (1.1-1.8); Alkaline Phosphatase 123 U/L (38-126); Anion Gap 11.2 mEq/L (5-15); Aspartate Amino Transferase 27 U/L (14-36); Bilirubin,Total 0.5 mg/dl (0.2-1.3); Blood Urea Nitrogen 38 mg/dl (7-17); Carbon Dioxide 25 mmol/L (22.0-30.0); Chloride 112 mmol/L (98-107); Creatinine Clearance Estimated 21 mL/min (50-200); Estimated Glomerular Filt Rate 26 ml/min (>60); GFR (African American) 31 ML/MIN (>60); Glucose 169 mg/dl (74-100); Potassium 5.2 mmoL/L (3.5-5.1); Sodium 143 mmol/L (136-145); Total Protein,Serum 7.6 g/dl (6.3-8.2)
[2022-09-24 17:46] LABS: Lactic Acid 1.5 mmol/L (0.7-2.1)
[2022-09-24 17:47] LABS: Appearance,Urine CLEAR (Clear); Bilirubin,Urine Negative (Negative); Blood, Urine Negative (Negative); Color,Urine YELLOW (Yellow); Glucose,Urine (UA) Negative (Negative); Ketones,Urine Negative (Negative); Leukocyte Esterase,Urine 2+ (Negative); Nitrate,Urine Negative (Negative); Protein,Urine 1+ (Negative); Urobilinogen,Urine 0.2 EU/dl (0.2)
[2022-09-24 17:53] LABS: Coronavirus 19, PCR Not Detected (NotDetected); Influenza A, PCR Not Detected (NotDetected); Influenza B, PCR Not Detected (NotDetected)
[2022-09-24 18:06] LABS: NT Pro Brain Natriuretic Pep. 1200 pg/mL (0-450)
[2022-09-24 18:07] LABS: MANUAL DIFFERENTIAL MANUAL DIFFERENTIAL (MANUAL DIFF)
[2022-09-24 18:16] LABS: Troponin I 0.18 ng/ml (0.00-0.034)
[2022-09-24 19:21] LABS: Bacteria,Urine 2+ /lpf
--- NOTE | 2022-09-24 19:23 | PC.NURSE ---
Pt provided with pillow. No other needs voiced at this time.
--- NOTE | 2022-09-24 19:33 | PC.NURSE ---
shadi Swain for pt admission.
--- NOTE | 2022-09-24 19:49 | PC.NURSE ---
speaking with Dr. Swain
[2022-09-24 20:34] LABS: Lymphocytes % 7 % (10-50); Monocytes % 2 % (2-9); Neutrophils % 90 % (42-76); Total Cells Counted 100
[2022-09-24 20:35] LABS: Platelet Estimate Normal; RBC Morphology Normal
[2022-09-24 21:31] LABS: Troponin I 0.23 ng/ml (0.00-0.034)
--- NOTE | 2022-09-24 21:32 | PC.NURSE ---
paged dr rogers @ this time
--- NOTE | 2022-09-24 21:36 | PC.NURSE ---
notified dr rogers of critical trop 0.23. sue request for dr howell to call dr ernst
--- NOTE | 2022-09-24 21:58 | PC.NURSE ---
Dr. Shine paged
--- NOTE | 2022-09-24 21:59 | PC.NURSE ---
Dr. Kimball speaking with Dr. Shine
--- NOTE | 2022-09-24 22:55 | PC.NURSE ---
REPORT RECEIVED AT 2250 FROM Alma BAUMANN RN/ED.
--- NOTE | 2022-09-24 23:15 | PC.NURSE ---
Pt arrived to floor rosy joseph @ [id number].
[2022-09-25] VITALS (12 sets, daily range): BP systolic 101–152; BP diastolic 49–73; PULSE 80–100; RESP 18–30; TEMP 36.6–36.9; O2SAT 90–95; BMI 18.0
[2022-09-25 00:19] LABS: Troponin I 0.23 ng/ml (0.00-0.034)
--- NOTE | 2022-09-25 00:33 | PC.NURSE ---
0025 DR ROY PAGED THROUGH [facility] TIRE REPAIR MECHANIC TO INFORM HIM OF PATIENTS ARRIVAL TO MED SURG AND NEED OF ORDERS.
--- NOTE | 2022-09-25 04:41 | PC.NURSE ---
PATIENT DENIES PAIN. REPORTS SOA ON EXERTION. 95% 02 SAT ON VAPOTHERM 30L/60%. WEARS BRIEFS FOR INCONTINENCE. BRUISES ON LEFT ARM FROM RECENT FALL AT LONGTERM. SINUS RHYTHM ON TELE MONITOR.
[2022-09-25 06:59] LABS: Basophils # 0.1 K/mm3 (0-0.2); Basophils % 0.2 % (0.1-2.0); Lymphocytes # 1.5 K/mm3 (0.7-4.5)
[2022-09-25 07:05] LABS: Chloride 114 mmol/L (98-107)
[2022-09-25 07:06] LABS: Potassium 5.1 mmoL/L (3.5-5.1); Sodium 142 mmol/L (136-145)
[2022-09-25 07:09] LABS: Anion Gap 12.1 mEq/L (5-15); Blood Urea Nitrogen 45 mg/dl (7-17); Calcium 7.9 mg/dl (8.4-10.2); Carbon Dioxide 21 mmol/L (22.0-30.0); Creatinine Clearance Estimated 17 mL/min (50-200); Estimated Glomerular Filt Rate 24 ml/min (>60); GFR (African American) 29 ML/MIN (>60); Glucose 142 mg/dl (74-100)
[2022-09-25 07:16] LABS: Eosinophils % 0.1 % (0.1-12.0); Hematocrit 35.4 % (37.0-47.0); Lymphocytes % 5.2 % (10-50); Mean Corpuscular HGB Conc 30.4 g/dL (31.8-35.4); Mean Corpuscular Hemoglobin 27.5 pg (27.0-31.2); Mean Corpuscular Volume 90.3 fl (81-99); Mean Platelet Volume 8.7 fl (7.4-10.4); Monocytes # 0.4 K/mm3 (0.1-1.0); Monocytes % 1.5 % (1.7-9.3); Neutrophils # 26.6 K/mm3 (1.8-7.8); Neutrophils % 92.9 % (37.0-80.0); Platelet Count 260 K/mm3 (142-424); Red Blood Count 3.91 M/mm3 (4.20-5.40); Red Cell Distribution Width 14.8 % (11.5-17.5); White Blood Count 28.6 K/mm3 (4.8-10.8)
[2022-09-25 07:22] LABS: Hemoglobin 10.8 g/dL (12.2-16.2)
[2022-09-25 07:23] LABS: MANUAL DIFFERENTIAL MANUAL DIFFERENTIAL (MANUAL DIFF)
[2022-09-25 08:08] LABS: Anisocytosis 1+; Hypochromasia 1+; Lymphocytes % 5 % (10-50); Monocytes % 5 % (2-9); Neutrophils % 87 % (42-76); Ovalocytes 1+; Platelet Estimate Normal; Poikilocytosis 1+; Total Cells Counted 100
--- NOTE | 2022-09-25 08:18 | EXP.HP ---
History of Present Illness *Admission Date: 09/24/22 *Reason for visit:: Cough, mental status changes, fever *History of present illness: 77-year-old white female with emphysema, oxygen requiring, mild dementia and chronic kidney disease, who is a resident of the [facility]. She was found to have increasing oxygen requirement, confusion and fever. Transition to the ER. Significant oxygen needs were noted, transition into Vapotherm therapy and saturations improved nicely. Was found to have pneumonia, admitted to hospital for broad-spectrum antibiotics for nursing and required pneumonia. [facility] Disclaimer: The information contained in this section may have been updated after the patient was seen, as this information can be updated by other users. Social History Smoking Status: Never smoker alcohol intake: never current occupational status: retired Travel in the last 8 weeks: None Review of Systems Review of Systems Review of systems:: pertinent systems reviewed and negative unless documented below Constitutional Constitutional: Denies headache(s) and Denies weakness ENT Ears, Nose, Mouth, and Throat: Denies headache(s) *Musculoskeletal Musculoskeletal: Denies numbness *Neurologic Neurologic: Denies headache(s), Denies numbness and Denies weakness Meds Home Medications and Allergies Home Medications Medication Instructions Recorded Confirmed Type albuterol sulfate 90 mcg/actuation 2 puffs IH QID Breathing problems 01/19/21 09/25/22 History aerosol inhaler amlodipine 5 mg tablet 5 mg PO DAILY Hypertension 01/19/21 09/25/22 History atorvastatin 80 mg tablet 80 mg PO HS Cholesterol 01/19/21 09/24/22 History carvedilol 25 mg tablet 25 mg PO BID Hypertension 01/19/21 09/24/22 History omeprazole 40 mg capsule,delayed 40 mg PO DAILY GERD 01/19/21 09/24/22 History release aspirin 81 mg chewable tablet 81 mg PO DAILY Blood thinner 03/16/21 09/25/22 History acetaminophen 500 mg tablet 1,000 mg PO Q6HP PRN PAIN/FEVER 05/20/21 09/25/22 History buspirone 10 mg tablet 10 mg PO TID Anxiety 05/20/21 09/24/22 History calcium carbonate 500 mg calcium 1,000 mg PO Q6HP PRN INDEGESTION 05/20/21 09/24/22 History (1,250 mg) tablet cetirizine 10 mg tablet 10 mg PO DAILY ALLERGIES 05/20/21 09/24/22 History escitalopram oxalate 10 mg tablet 10 mg PO DAILY Anxiety 05/20/21 09/24/22 History fluticasone 250 mcg-salmeterol 50 1 each IH BID COPD 05/20/21 09/24/22 History mcg/dose blistr powdr for inhalation ipratropium 0.5 mg-albuterol 3 mg 3 ml IH Q4HP PRN SHORTNESS OF AIR 05/20/21 09/24/22 History (2.5 mg base)/3 mL nebulization soln melatonin 3 mg tablet 3 mg PO HS Insomnia 05/20/21 09/24/22 History peg 400-propylene glycol 0.4 %-0.3 1 drp OU BID DRY EYES 05/20/21 09/24/22 History % eye gel drops tramadol 50 mg tablet 50 mg PO Q6HP PRN PAIN 05/20/21 09/24/22 History azithromycin 250 mg tablet 250 mg PO DIRECTED Infection 09/24/22 09/25/22 History cefdinir 300 mg capsule 300 mg PO BID Infection 09/24/22 09/24/22 History New Prescriptions to Start Prescriptions: Allergies Allergy/AdvReac Type Severity Reaction Status Date / Time Penicillins Allergy Rash Verified 01/20/21 07:57 Exam Data for Last 24 hours Vital signs and Labs for Last 24 Hours: Temp Pulse Resp BP Pulse Ox FiO2 98.5 F 86 22 152/73 H 94 L 60 09/25/22 04:00 09/25/22 06:05 09/25/22 04:00 09/25/22 04:00 09/25/22 06:05 09/25/22 06:05 Laboratory Results - last 24 hr 09/24/22 16:40: WBC 29.3 H*, RBC 4.29, Hgb 11.9 L, Hct 38.9, MCV 90.7, MCH 27.7, MCHC 30.5 L, RDW 14.9, Plt Count 328, MPV 8.3, Neut % (Auto) 92.0 H, Lymph % (Auto) 4.7 L, [place] % (Auto) 2.9, Eos % (Auto) 0.1, Baso % (Auto) 0.3, Neut # (Auto) 26.9 H, Lymph # (Auto) 1.4, [place] # (Auto) 0.9, Eos # (Auto) 0.0, Baso # (Auto) 0.1, Total Counted 100, Neutrophils % (Manual) 90 H, Lymphocytes % (Manual) 7 L, Monocytes % (Manual) 2, Basophils %
--- NOTE | 2022-09-25 08:24 | EXP.PHA.CONS ---
Pharmacy Consult Date: 09/25/22 Time: 08:24 Referring provider: DR. LACY Reason for Consult:: VANCOMYCIN DOSING Allergies Allergy/AdvReac Type Severity Reaction Status Date / Time Penicillins Allergy Rash Verified 01/20/21 07:57 Home Medications Medication Instructions Recorded Confirmed Type albuterol sulfate 90 mcg/actuation 2 puffs IH QID Breathing problems 01/19/21 09/25/22 History aerosol inhaler amlodipine 5 mg tablet 5 mg PO DAILY Hypertension 01/19/21 09/25/22 History atorvastatin 80 mg tablet 80 mg PO HS Cholesterol 01/19/21 09/24/22 History carvedilol 25 mg tablet 25 mg PO BID Hypertension 01/19/21 09/24/22 History omeprazole 40 mg capsule,delayed 40 mg PO DAILY GERD 01/19/21 09/24/22 History release aspirin 81 mg chewable tablet 81 mg PO DAILY Blood thinner 03/16/21 09/25/22 History acetaminophen 500 mg tablet 1,000 mg PO Q6HP PRN PAIN/FEVER 05/20/21 09/25/22 History buspirone 10 mg tablet 10 mg PO TID Anxiety 05/20/21 09/24/22 History calcium carbonate 500 mg calcium 1,000 mg PO Q6HP PRN INDEGESTION 05/20/21 09/24/22 History (1,250 mg) tablet cetirizine 10 mg tablet 10 mg PO DAILY ALLERGIES 05/20/21 09/24/22 History escitalopram oxalate 10 mg tablet 10 mg PO DAILY Anxiety 05/20/21 09/24/22 History fluticasone 250 mcg-salmeterol 50 1 each IH BID COPD 05/20/21 09/24/22 History mcg/dose blistr powdr for inhalation ipratropium 0.5 mg-albuterol 3 mg 3 ml IH Q4HP PRN SHORTNESS OF AIR 05/20/21 09/24/22 History (2.5 mg base)/3 mL nebulization soln melatonin 3 mg tablet 3 mg PO HS Insomnia 05/20/21 09/24/22 History peg 400-propylene glycol 0.4 %-0.3 1 drp OU BID DRY EYES 05/20/21 09/24/22 History % eye gel drops tramadol 50 mg tablet 50 mg PO Q6HP PRN PAIN 05/20/21 09/24/22 History azithromycin 250 mg tablet 250 mg PO DIRECTED Infection 09/24/22 09/25/22 History cefdinir 300 mg capsule 300 mg PO BID Infection 09/24/22 09/24/22 History New Prescriptions to Start Prescriptions: Height: 1.57 m Weight: 44.497 kg Laboratory Results:: Laboratory Results - last 24 hr 09/24/22 16:40: WBC 29.3 H*, RBC 4.29, Hgb 11.9 L, Hct 38.9, MCV 90.7, MCH 27.7, MCHC 30.5 L, RDW 14.9, Plt Count 328, MPV 8.3, Neut % (Auto) 92.0 H, Lymph % (Auto) 4.7 L, [place] % (Auto) 2.9, Eos % (Auto) 0.1, Baso % (Auto) 0.3, Neut # (Auto) 26.9 H, Lymph # (Auto) 1.4, [place] # (Auto) 0.9, Eos # (Auto) 0.0, Baso # (Auto) 0.1, Total Counted 100, Neutrophils % (Manual) 90 H, Lymphocytes % (Manual) 7 L, Monocytes % (Manual) 2, Basophils % (Manual) 1.0, Platelet Estimate Normal, RBC Morphology Normal 09/24/22 16:40: Sodium 143, Potassium 5.2 H, Chloride 112 H, Carbon Dioxide 25, Anion Gap 11.2, BUN 38 H, Creatinine 1.90 H, Estimated Creat Clear 21, Estimated GFR 26 L, Est GFR ( Amer) 31 L, Glucose 169 H, Calcium 8.0 L, Total Bilirubin 0.5, AST 27, ALT 18, Alkaline Phosphatase 123, Troponin I 0.18 H, Total Protein 7.6, Albumin 3.6, Globulin 4.0 H, Albumin/Globulin Ratio 0.9 L 09/24/22 16:40: Lactate 1.5 09/24/22 16:40: NT-Pro-B Natriuret Pep 1200 H 09/24/22 16:42: SARS-CoV-2 (PCR) Not detected, Influenza A Untype (PCR) Not detected, Influenza Type B (PCR) Not detected 09/24/22 16:44: Specimen Source Right brachial, O2 % Nrb, ABG pH 7.38, ABG pCO2 35.2, ABG pO2 53.6 L, ABG HCO3 20.1 L, ABG Total CO2 21.2 L, ABG O2 Saturation 87 L*, ABG Base Excess -5.1 L, William Test Acceptable 09/24/22 17:24: Urine Color Yellow, Urine Appearance Clear, Urine pH 7.0, Ur Specific [place] 1.020, Urine Protein 1+, Urine Glucose (UA) Negative, Urine Ketones Negative, Urine Blood Negative, Urine Nitrate Negative, Urine Bilirubin Negative, Urine Urobilinogen 0.2, Ur Leukocyte Esterase 2+ A, Urine RBC None, Urine WBC 3-5, Ur Squamous Epith Cells None, Urine Bacteria 2+ 09/24/22 20:22: Troponin I 0.23 H 09/24/22 23:40: Troponin I 0.23 H 09/25/22 06:18: WBC 28.6 H*, RBC 3.91 L, Hgb 10.8 L, Hct 35.4 L, MCV 90.3, MCH 27.5, MCHC 30.4 L, RDW 14.8, Plt Count 260, MPV 8.7, Neut %
--- NOTE | 2022-09-25 09:08 | P.CONPHA_ITS ---
Pharmacy Intervention Comments: MEDICATION RECONCILIATION COMPLETED ON PATIENT USING MAR FROM LONG-TERM. -MANNY RODRIGES, TONOD
--- NOTE | 2022-09-25 09:08 | HMH.PHAINT1 ---
Pharmacy Intervention Comments: MEDICATION RECONCILIATION COMPLETED ON PATIENT USING MAR FROM CORRECTION. -MANNY RODRIGES, TONOD
--- NOTE | 2022-09-25 11:26 | HMH.SLDYSPHA ---
Speech & Language Evaluation Speech/Language Dysphagia Evaluation Start: 09/25/22 11:06 Freq: ONCE Status: Active Protocol: Document 09/25/22 11:07 SUSIE (Rec: 09/25/22 11:26 [email or web address] [id number]) Dysphagia Assess/Goals/Plan Assessment Date of Evaluation: 09/25/22 Evaluation Type Initial Certification Assessment/Problems Pt was assessed using a clinical bedside swallow evaluation per MD order. Does Patient Qualify for Service No Qualify/Failure Comment Based on assessment results and clinical observation, pt's swallowing and mastication are WFL and skilled speech therapy services are not warranted at this time. Recommendations PHYSICIAN CERTIFICATION: The specified therapy services are required, authorized, and reviewed every 30 days. Diet Recommendations Mechanical Soft Liquid Type Recommendations Normal/Thin Dysphagia Swallow Precautions/Strategies Sitting Upright (90 deg),Small Bites and Sips,Alternate Liquids/Solids Plan Pt/Guardian verbally ack understanding Yes of dx/prognosis/goals G -code Required No Education Instructions provided Discussed assessment results, aspiration precautions, and diet recommendations with pt, nursing, and care management all of which expressed understanding. Pt/Caregiver able to recall information Able to recall/restate Reinforcement needed No Speech & Language HPI History Present Illness Description of Patient Problem DENTURE PROCESSOR pulled following information from ER report, 77-year-old white female with emphysema, oxygen requiring, mild dementia and chronic kidney disease, who is a resident of the [facility]. She was found to have increasing oxygen requirement, confusion and fever. Transition to the ER. Significant oxygen needs were noted, transition into Vapotherm therapy and saturations improved nicely. Was found to have pneumonia, admitted to hospital for broad -spectrum antibiotics for
[2022-09-26] VITALS (13 sets, daily range): BP systolic 112–158; BP diastolic 54–78; PULSE 50–103; RESP 16–26; TEMP 36.6–37.2; O2SAT 90–94; BMI 18.1
--- NOTE | 2022-09-26 01:44 | PC.NURSE ---
PATIENT CURRENTLY ON VAPOTHERM 30L/50%. FINE CRACKLES NOTED BILAT LUNG BASES. TELEMETRY READING SINUS RHYTHM. OCCASSIONAL DRY COUGH. NO RESP DISTRESS.
--- NOTE | 2022-09-26 08:46 | EXP.ACUTE.PN ---
Subjective *Date: 09/26/22 *Time: 08:46 Interval history: Patient remains on Vapotherm. is more comfortable. Much more alert. Her main complaint today is neck pain. She does not seem to complain about her wrist unless asked. Medical Exam Vital signs and Labs for Last 24 Hours: Vital Signs Temp Pulse Pulse Resp BP Pulse Ox FiO2 09/26/22 08:00 97.8 F 91 H 22 143/60 H 92 L 09/26/22 06:00 74 09/26/22 06:00 79 09/26/22 06:00 90 L 40 09/26/22 04:00 98.5 F 88 18 118/67 92 L 09/26/22 00:00 98.8 F 80 16 112/54 L 94 L 09/25/22 20:00 98.0 F 88 18 130/63 92 L 09/25/22 20:00 93 L 50 09/25/22 19:19 84 09/25/22 19:19 84 09/25/22 16:00 86 09/25/22 16:00 97.8 F 87 24 115/49 L 93 L 09/25/22 12:00 100 H 09/25/22 14:45 87 09/25/22 14:45 88 09/25/22 14:45 94 L 50 09/25/22 10:52 80 09/25/22 10:52 89 Intake and Output 09/25/22 09/26/22 09/26/22 19:59 03:59 11:59 Intake Total 180 / 520 100 / 520 240 / 520 Output Total 0 / 0 Balance 180 / 520 100 / 520 240 / 520 Intake: Intake, Oral Amount 180 / 420 240 / 420 Intake, Total IV Amount 100 / 100 Cefepime HCl 1 gm In 0.9 % 50 / 50 Sodium Chloride 50 ml @ 100 mls /hr IV Q12H TAYLOR Rx#:[id number] Cefepime HCl 1 gm In 0.9 % 50 / 50 Sodium Chloride 50 ml @ 100 mls /hr IV Q12H TAYLOR Rx#:[id number] Output: Output, Urine Amount 0 / 0 Other: Number of Unmeasured Voids 1 1 1 Number of Bowel Movements 1 Weight 98 lb 1.338 oz 98 lb 3.808 oz Patient Weight 09/26/22 11:59 Weight 98 lb 3.808 oz Laboratory Results - last 24 hr 09/24/22 17:24: Urine Color Yellow, Urine Appearance Clear, Urine pH 7.0, Ur Specific [place] 1.020, Urine Protein 1+, Urine Glucose (UA) Negative, Urine Ketones Negative, Urine Blood Negative, Urine Nitrate Negative, Urine Bilirubin Negative, Urine Urobilinogen 0.2, Ur Leukocyte Esterase 2+ A, Urine RBC None, Urine WBC 3-5, Ur Squamous Epith Cells None, Urine Bacteria 2+ I & O for Labs for Last 24 Hours: Intake & Output 09/23/22 09/24/22 09/25/22 09/26/22 11:59 11:59 11:59 11:59 Intake Total 340 / 340 520 / 520 Output Total 0 / 0 0 / 0 Balance 340 / 340 520 / 520 Weight 98 lb 1.6 oz 98 lb 3.808 oz Microbiology Reports for the Last 24 Hours: Microbiology 09/24/22 17:24 Urine,Catheterized Urine Culture - Preliminary Gram Negative Rods Comment:: Comfortable on Vapotherm. Ate a little bit of her breakfast. Lungs have rhonchi but good air movement. Heart rate regular. She does have some osteoarthritic type spinal changes on palpation of her cervical spine with some prominence but no point tenderness. She has previously noted cervical kyphosis. Her wrist is in the splint, is tender but good distal capillary refill. No edema. Assessment and Plan *Assessment and plan (1) COPD (chronic obstructive pulmonary disease): Status: Chronic Category: Medical Code(s): J44.9 - Chronic obstructive pulmonary disease, unspecified (2) Acute exacerbation of chronic obstructive airways disease: Status: Acute Category: Medical Code(s): J44.1 - Chronic obstructive pulmonary disease with (acute) exacerbation (3) HCAP (healthcare-associated pneumonia): Status: Acute Category: Medical Code(s): J18.9 - Pneumonia, unspecified organism (4) Acute and chronic respiratory failure with hypoxia: Status: Acute Category: Medical Code(s): J96.21 - Acute and chronic respiratory failure with hypoxia (5) Sepsis: Status: Acute Category: Medical Code(s): A41.9 - Sepsis, unspecified organism (6) Acute delirium: Status: Acute Category: Medical Code(s): R41.0 - Disorientation, unspecified Plan Agree with admission. Aggressive
[2022-09-26 09:05] LABS: Basophils % 0.1 % (0.1-2.0); Eosinophils # 0.1 K/mm3 (0.0-0.4); Eosinophils % 0.3 % (0.1-12.0); Hematocrit 35.6 % (37.0-47.0); Lymphocytes # 1.2 K/mm3 (0.7-4.5); Lymphocytes % 4.9 % (10-50); Mean Corpuscular HGB Conc 30.7 g/dL (31.8-35.4); Mean Corpuscular Hemoglobin 27.7 pg (27.0-31.2); Mean Corpuscular Volume 90.2 fl (81-99); Mean Platelet Volume 8.2 fl (7.4-10.4); Monocytes # 0.5 K/mm3 (0.1-1.0); Neutrophils % 92.7 % (37.0-80.0); Platelet Count 268 K/mm3 (142-424); Red Blood Count 3.95 M/mm3 (4.20-5.40); Red Cell Distribution Width 14.9 % (11.5-17.5); White Blood Count 24.8 K/mm3 (4.8-10.8)
[2022-09-26 09:09] LABS: MANUAL DIFFERENTIAL MANUAL DIFFERENTIAL (MANUAL DIFF)
[2022-09-26 09:15] LABS: Alanine Aminotransferase 16 U/L (12-78); Albumin Level 3.4 g/dl (3.5-5.0); Albumin/Globulin Ratio 0.9 (1.1-1.8); Alkaline Phosphatase 85 U/L (38-126); Anion Gap 13.9 mEq/L (5-15); Aspartate Amino Transferase 28 U/L (14-36); Bilirubin,Total 0.4 mg/dl (0.2-1.3); Blood Urea Nitrogen 60 mg/dl (7-17); Calcium 8.2 mg/dl (8.4-10.2); Carbon Dioxide 20 mmol/L (22.0-30.0); Chloride 113 mmol/L (98-107); Creatinine Clearance Estimated 16 mL/min (50-200); Estimated Glomerular Filt Rate 23 ml/min (>60); GFR (African American) 28 ML/MIN (>60); Globulin 3.8 g/dL (1.3-3.2); Glucose 132 mg/dl (74-100); Potassium 4.9 mmoL/L (3.5-5.1); Sodium 142 mmol/L (136-145); Total Protein,Serum 7.2 g/dl (6.3-8.2)
[2022-09-26 09:32] LABS: Lymphocytes % 8 % (10-50); Monocytes % 4 % (2-9); Neutrophils % 88 % (42-76); Platelet Estimate Normal; RBC Morphology Normal; Total Cells Counted 100
--- NOTE | 2022-09-26 18:52 | PC.NURSE ---
Patient anxious throughout the shift, able to calm down with breathing exercises. Patient able to sit in chair for lunch and dinner. VS stable, vapotherm weaned to 30L 40%.
[2022-09-27] VITALS (14 sets, daily range): BP systolic 130–161; BP diastolic 60–88; PULSE 77–116; RESP 16–22; TEMP 36.7–37.2; O2SAT 89–96; BMI 18.2
[2022-09-27 08:18] LABS: Basophils % 0.1 % (0.1-2.0); Eosinophils % 0.1 % (0.1-12.0); Hematocrit 35.5 % (37.0-47.0); Lymphocytes # 0.9 K/mm3 (0.7-4.5); Lymphocytes % 4.8 % (10-50); Mean Corpuscular Hemoglobin 27.7 pg (27.0-31.2); Mean Corpuscular Volume 89.4 fl (81-99); Monocytes # 0.4 K/mm3 (0.1-1.0); Monocytes % 1.9 % (1.7-9.3); Neutrophils # 17.5 K/mm3 (1.8-7.8); Platelet Count 233 K/mm3 (142-424); Red Blood Count 3.97 M/mm3 (4.20-5.40); Red Cell Distribution Width 14.9 % (11.5-17.5); White Blood Count 18.8 K/mm3 (4.8-10.8)
[2022-09-27 08:21] LABS: MANUAL DIFFERENTIAL MANUAL DIFFERENTIAL (MANUAL DIFF)
--- NOTE | 2022-09-27 09:04 | EXP.ACUTE.PN ---
Subjective *Date: 09/27/22 *Time: 09:04 Interval history: Patient is improving, up in a chair today. Remains on Vapotherm oxygen support. Medical Exam Vital signs and Labs for Last 24 Hours: Vital Signs Temp Pulse Pulse Resp BP Pulse Ox FiO2 09/27/22 07:30 98.2 F 88 16 161/88 H 94 L 09/27/22 06:09 81 09/27/22 06:09 79 09/27/22 06:09 90 L 40 09/27/22 04:00 98.7 F 106 H 18 149/67 H 96 09/27/22 04:00 116 H 09/27/22 00:00 98.0 F 84 16 148/60 H 94 L 09/27/22 00:00 80 09/26/22 21:32 92 H 09/26/22 21:12 87 09/26/22 21:11 85 09/26/22 20:00 92 L 40 09/26/22 20:00 99.0 F 50 L 22 158/78 H 92 L 09/26/22 20:11 40 09/26/22 16:00 97.8 F 83 26 H 121/59 L 93 L 09/26/22 14:26 80 09/26/22 14:10 84 09/26/22 14:10 87 09/26/22 14:10 93 L 40 09/26/22 11:53 97.9 F 103 H 20 145/75 H 92 L 09/26/22 10:26 97 H 09/26/22 10:26 99 H 09/26/22 10:26 90 L 40 Intake and Output 09/26/22 09/27/22 09/27/22 19:59 03:59 11:59 Intake Total 240 / 580 250 / 580 90 / 580 Output Total 0 / 0 Balance 240 / 580 250 / 580 90 / 580 Intake: Intake, Oral Amount 240 / 530 200 / 530 90 / 530 Intake, Total IV Amount 50 / 50 Cefepime HCl 1 gm In 0.9 % 50 / 50 Sodium Chloride 50 ml @ 100 mls /hr IV Q12H [facility] Rx#:[id number] Output: Output, Urine Amount 0 / 0 Other: Number of Unmeasured Voids 3 1 1 Weight 99 lb 1.565 oz Patient Weight 09/27/22 11:59 Weight 99 lb 1.565 oz Laboratory Results - last 24 hr 09/26/22 08:35: WBC 24.8 H*, RBC 3.95 L, Hgb 11.0 L, Hct 35.6 L, MCV 90.2, MCH 27.7, MCHC 30.7 L, RDW 14.9, Plt Count 268, MPV 8.2, Neut % (Auto) 92.7 H, Lymph % (Auto) 4.9 L, [place] % (Auto) 2.0, Eos % (Auto) 0.3, Baso % (Auto) 0.1, Neut # (Auto) 23.0 H, Lymph # (Auto) 1.2, [place] # (Auto) 0.5, Eos # (Auto) 0.1, Baso # (Auto) 0.0, Total Counted 100, Neutrophils % (Manual) 88 H, Lymphocytes % (Manual) 8 L, Monocytes % (Manual) 4, Platelet Estimate Normal, RBC Morphology Normal 09/26/22 08:35: Sodium 142, Potassium 4.9, Chloride 113 H, Carbon Dioxide 20 L, Anion Gap 13.9, BUN 60 H D, Creatinine 2.10 H, Estimated Creat Clear 16, Estimated GFR 23 L, Est GFR ( Amer) 28 L, Glucose 132 H, Calcium 8.2 L, Total Bilirubin 0.4, AST 28, ALT 16, Alkaline Phosphatase 85, Total Protein 7.2, Albumin 3.4 L, Globulin 3.8 H, Albumin/Globulin Ratio 0.9 L 09/27/22 08:03: WBC 18.8 H, RBC 3.97 L, Hgb 11.0 L, Hct 35.5 L, MCV 89.4, MCH 27.7, MCHC 31.0 L, RDW 14.9, Plt Count 233, MPV 8.0, Neut % (Auto) 93.0 H, Lymph % (Auto) 4.8 L, [place] % (Auto) 1.9, Eos % (Auto) 0.1, Baso % (Auto) 0.1, Neut # (Auto) 17.5 H, Lymph # (Auto) 0.9, [place] # (Auto) 0.4, Eos # (Auto) 0.0, Baso # (Auto) 0.0 I & O for Labs for Last 24 Hours: Intake & Output 09/24/22 09/25/22 09/26/22 02/12/23 11:59 11:59 11:59 11:59 Intake Total 340 / 340 760 / 760 580 / 580 Output Total 0 / 0 0 / 0 0 / 0 Balance 340 / 340 760 / 760 580 / 580 Weight 98 lb 1.6 oz 98 lb 3.808 oz 99 lb 1.565 oz Microbiology Reports for the Last 24 Hours: Microbiology 09/24/22 17:24 Urine,Catheterized Urine Culture - Final Proteus mirabilis 09/24/22 16:40 Blood Blood Culture - Preliminary NO GROWTH AFTER 48 HOURS 09/24/22 16:40 Blood Blood Culture - Preliminary NO GROWTH AFTER 48 HOURS Comment:: Pleasant. Remains confused about location and time, but is able to be reoriented. Lungs have rhonchi bilaterally but fairly good air entry. And this seems to be improving. Abdomen soft. Heart rate regular with occasional ectopic beats. Extremities with very trace ankle edema. Otherwise warm and well-perfused. Globally weak but is able to move her extremities. Assessment and Plan *Assessment and plan (1) COPD (security patrol officer
[2022-09-27 09:20] LABS: Chloride 121 mmol/L (98-107); Potassium 4.7 mmoL/L (3.5-5.1)
[2022-09-27 09:23] LABS: Anion Gap 15.7 mEq/L (5-15); Blood Urea Nitrogen 60 mg/dl (7-17); Carbon Dioxide 18 mmol/L (22.0-30.0); Creatinine Clearance Estimated 16 mL/min (50-200); Estimated Glomerular Filt Rate 23 ml/min (>60); GFR (African American) 28 ML/MIN (>60)
[2022-09-27 09:24] LABS: Calcium 8.5 mg/dl (8.4-10.2); Glucose 157 mg/dl (74-100)
[2022-09-27 09:25] LABS: Lymphocytes % 3 % (10-50); Monocytes % 1 % (2-9); Neutrophils % 96 % (42-76); Total Cells Counted 100
[2022-09-27 09:26] LABS: Platelet Estimate Normal; RBC Morphology Normal
[2022-09-27 09:28] LABS: Sodium 150 mmol/L (136-145)
--- NOTE | 2022-09-27 09:32 | PC.NURSE ---
Dr. Swain notified of critical sodium 150
--- NOTE | 2022-09-27 17:49 | PC.NURSE ---
Patient very anxious during shift. VS stable but vapotherm unable to be weaned successfully. Patient able to sit in chair for first half of shift. Lung sounds diminished, some fine crackles noted.
[2022-09-28] VITALS (14 sets, daily range): BP systolic 133–163; BP diastolic 62–83; PULSE 70–108; RESP 16–20; TEMP 36.8–37.1; O2SAT 90–95; BMI 18.0
[2022-09-28 06:57] LABS: Basophils % 0.2 % (0.1-2.0); Eosinophils % 0.1 % (0.1-12.0); Hematocrit 32.9 % (37.0-47.0); Hemoglobin 10.7 g/dL (12.2-16.2); Lymphocytes % 8.1 % (10-50); Mean Corpuscular HGB Conc 32.5 g/dL (31.8-35.4); Mean Corpuscular Volume 86.3 fl (81-99); Mean Platelet Volume 8.3 fl (7.4-10.4); Monocytes # 0.3 K/mm3 (0.1-1.0); Monocytes % 2.1 % (1.7-9.3); Neutrophils # 10.8 K/mm3 (1.8-7.8); Neutrophils % 89.5 % (37.0-80.0); Platelet Count 272 K/mm3 (142-424); Red Blood Count 3.81 M/mm3 (4.20-5.40); Red Cell Distribution Width 14.9 % (11.5-17.5)
[2022-09-28 07:19] LABS: MANUAL DIFFERENTIAL MANUAL DIFFERENTIAL (MANUAL DIFF)
[2022-09-28 07:21] LABS: Anion Gap 11.9 mEq/L (5-15); Blood Urea Nitrogen 55 mg/dl (7-17); Carbon Dioxide 23 mmol/L (22.0-30.0); Chloride 112 mmol/L (98-107); Creatinine Clearance Estimated 17 mL/min (50-200); Estimated Glomerular Filt Rate 26 ml/min (>60); GFR (African American) 31 ML/MIN (>60); Glucose 147 mg/dl (74-100); Potassium 3.9 mmoL/L (3.5-5.1); Sodium 143 mmol/L (136-145)
[2022-09-28 07:45] LABS: Lymphocytes % 9 % (10-50); Monocytes % 4 % (2-9); Neutrophils % 87 % (42-76); Total Cells Counted 100
[2022-09-28 07:46] LABS: Platelet Estimate Normal; RBC Morphology Normal
--- NOTE | 2022-09-28 08:29 | XR_ITS ---
FINAL REPORT CLINICAL HISTORY: f/u pneumonia COMPARISON: 09/24/2022 FINDINGS: PA and lateral views of the chest were obtained. The cardiac and mediastinal silhouettes are within normal limits. There are bilateral interstitial opacities which have increased since prior, mild edema is not excluded. Left basilar opacity has improved.. There is no pleural effusion or pneumothorax. No acute osseous abnormality is identified. IMPRESSION: Increased bilateral interstitial opacities, mild edema is not excluded. Improvement in the left basilar opacity. Reviewed, Interpreted and Dictated by Erin Dawson MD Transcribed by Faiza Mueller Authenticated and [facility]
--- NOTE | 2022-09-28 08:52 | EXP.ACUTE.PN ---
Subjective *Date: 09/28/22 *Time: 08:52 Interval history: Patient appears more active, more talkative today. Color looks better, unfortunately is still on Vapotherm for her oxygen delivery. She has otherwise no complaints. Medical Exam Vital signs and Labs for Last 24 Hours: Vital Signs Temp Pulse Pulse Resp BP Pulse Ox FiO2 09/28/22 08:00 98.7 F 84 17 161/71 H 95 09/28/22 06:29 83 09/28/22 06:29 87 09/28/22 06:29 92 L 40 09/28/22 04:00 80 09/28/22 00:00 81 09/28/22 03:51 98.7 F 75 20 163/83 H 09/27/22 20:00 112 H 09/27/22 23:40 98.7 F 83 22 145/72 H 94 L 09/27/22 20:00 40 09/27/22 21:53 35 09/27/22 21:51 99 H 09/27/22 21:51 97 H 09/27/22 19:26 98.9 F 89 20 140/68 92 L 09/27/22 16:00 77 09/27/22 16:00 100 H 09/27/22 14:54 98.7 F 98 H 17 130/60 92 L 09/27/22 13:52 104 H 09/27/22 13:52 104 H 09/27/22 13:52 89 L 35 09/27/22 10:37 98.3 F 80 16 136/61 90 L 09/27/22 10:04 80 09/27/22 10:04 79 09/27/22 10:04 94 L 40 Intake and Output 09/27/22 09/28/22 09/28/22 19:59 03:59 11:59 Intake Total 300 / 540 240 / 540 Output Total 0 / 0 0 / 0 Balance 300 / 540 0 / 540 240 / 540 Intake: Intake, Oral Amount 300 / 540 240 / 540 Output: Output, Urine Amount 0 / 0 0 / 0 Other: Number of Unmeasured Voids 1 1 Weight 98 lb Patient Weight 09/28/22 11:59 Weight 98 lb Laboratory Results - last 24 hr 09/27/22 08:03: Total Counted 100, Neutrophils % (Manual) 96 H, Lymphocytes % (Manual) 3 L, Monocytes % (Manual) 1 L, Platelet Estimate Normal, RBC Morphology Normal 09/27/22 08:03: Sodium 150 H, Potassium 4.7, Chloride 121 H, Carbon Dioxide 18 L, Anion Gap 15.7 H, BUN 60 H, Creatinine 2.10 H, Estimated Creat Clear 16, Estimated GFR 23 L, Est GFR ( Amer) 28 L, Glucose 157 H, Calcium 8.5 09/28/22 06:45: WBC 12.0 H D, RBC 3.81 L, Hgb 10.7 L, Hct 32.9 L, MCV 86.3, MCH 28.0, MCHC 32.5, RDW 14.9, Plt Count 272, MPV 8.3, Neut % (Auto) 89.5 H, Lymph % (Auto) 8.1 L, [place] % (Auto) 2.1, Eos % (Auto) 0.1, Baso % (Auto) 0.2, Neut # (Auto) 10.8 H, Lymph # (Auto) 1.0, [place] # (Auto) 0.3, Eos # (Auto) 0.0, Baso # (Auto) 0.0, Total Counted 100, Neutrophils % (Manual) 87 H, Lymphocytes % (Manual) 9 L, Monocytes % (Manual) 4, Platelet Estimate Normal, RBC Morphology Normal 09/28/22 06:45: Sodium 143, Potassium 3.9, Chloride 112 H, Carbon Dioxide 23, Anion Gap 11.9, BUN 55 H, Creatinine 1.90 H, Estimated Creat Clear 17, Estimated GFR 26 L, Est GFR ( Amer) 31 L, Glucose 147 H, Calcium 8.0 L I & O for Labs for Last 24 Hours: Intake & Output 09/25/22 09/26/22 09/27/22 09/28/22 11:59 11:59 11:59 11:59 Intake Total 340 / 340 760 / 760 580 / 580 540 / 540 Output Total 0 / 0 0 / 0 0 / 0 0 / 0 Balance 340 / 340 760 / 760 580 / 580 540 / 540 Weight 98 lb 1.6 oz 98 lb 3.808 oz 99 lb 1.565 oz 98 lb Comment:: Lungs have good air movement in the anterior andersen. Less rhonchi. Heart rate regular. Abdomen soft, extremities warm and well-perfused. She remains afflicted with her memory loss and cognitive impairment but is more alert and more talkative today. Able to complete sentences when she talks. Assessment and Plan *Assessment and plan (1) COPD (chronic obstructive pulmonary disease): Status: Chronic Category: Medical Code(s): J44.9 - Chronic obstructive pulmonary disease, unspecified (2) Acute exacerbation of chronic obstructive airways disease: Status: Acute Category: Medical Code(s): J44.1 - Chronic obstructive pulmonary disease with (acute) exacerbation (3) HCAP (healthcare-associated pneumonia): Status: Acute Category: Medical Code(s): J18.9 - Pneumonia, unspecified organism (4) Acute and chronic respiratory failure with hypoxia: Status: Acute Category:
--- NOTE | 2022-09-28 09:34 | PC.NURSE ---
RESP CARE NOTE: Pt placed on 4 lpm nc, SPO2 at 95% at this time. Will continue to monitor patient.
[2022-09-29] VITALS: BP 128/74; PULSE 96; RESP 18; TEMP 36.6; O2SAT 95
[2022-09-29 04:00] VITALS: BP 166/75; PULSE 86; RESP 16; TEMP 37.4; O2SAT 94; BMI 18.0
--- NOTE | 2022-09-29 04:31 | PC.NURSE ---
No changes noted through the night. Purewick placed because pt had a dose of lasix.
[2022-09-29 06:11] VITALS: PULSE 74; PULSE 79; O2SAT 95
[2022-09-29 07:01] LABS: Chloride 107 mmol/L (98-107); Potassium 3.9 mmoL/L (3.5-5.1); Sodium 143 mmol/L (136-145)
[2022-09-29 07:03] LABS: Basophils % 0.2 % (0.1-2.0); Eosinophils # 0.1 K/mm3 (0.0-0.4); Eosinophils % 0.7 % (0.1-12.0); Hematocrit 34.8 % (37.0-47.0); Hemoglobin 10.9 g/dL (12.2-16.2); Lymphocytes # 0.9 K/mm3 (0.7-4.5); Lymphocytes % 7.9 % (10-50); Mean Corpuscular HGB Conc 31.4 g/dL (31.8-35.4); Mean Corpuscular Hemoglobin 27.8 pg (27.0-31.2); Mean Corpuscular Volume 88.6 fl (81-99); Monocytes # 0.3 K/mm3 (0.1-1.0); Monocytes % 2.3 % (1.7-9.3); Neutrophils # 10.3 K/mm3 (1.8-7.8); Neutrophils % 88.8 % (37.0-80.0); Platelet Count 247 K/mm3 (142-424); Red Blood Count 3.93 M/mm3 (4.20-5.40); Red Cell Distribution Width 14.8 % (11.5-17.5); White Blood Count 11.6 K/mm3 (4.8-10.8)
[2022-09-29 07:04] LABS: Anion Gap 12.9 mEq/L (5-15); Blood Urea Nitrogen 68 mg/dl (7-17); Calcium 7.8 mg/dl (8.4-10.2); Carbon Dioxide 27 mmol/L (22.0-30.0); Creatinine Clearance Estimated 15 mL/min (50-200); Estimated Glomerular Filt Rate 22 ml/min (>60); GFR (African American) 26 ML/MIN (>60); Glucose 199 mg/dl (74-100)
[2022-09-29 07:07] LABS: MANUAL DIFFERENTIAL MANUAL DIFFERENTIAL (MANUAL DIFF)
[2022-09-29 08:00] VITALS: BP 153/64; PULSE 81; RESP 24; TEMP 36.4; O2SAT 92
[2022-09-29 08:25] LABS: Lymphocytes % 9 % (10-50); Monocytes % 2 % (2-9); Neutrophils % 89 % (42-76); Total Cells Counted 100
[2022-09-29 08:26] LABS: Platelet Estimate Normal; RBC Morphology Normal
--- NOTE | 2022-09-29 08:52 | EXP.DC.SUM ---
General Admission date:: 09/24/22 Discharge date: 09/29/22 HPI HPI HPI: 77-year-old white female with emphysema, oxygen requiring, mild dementia and chronic kidney disease, who is a resident of the [facility]. She was found to have increasing oxygen requirement, confusion and fever. Transition to the ER. Significant oxygen needs were noted, transition into Vapotherm therapy and saturations improved nicely. Was found to have pneumonia, admitted to hospital for broad-spectrum antibiotics for nursing and required pneumonia. Hospital Course Hospital Course Hospital Course: Patient was admitted. Placed on broad-spectrum IV antibiotics given her halfway acquired pneumonia. She improved slowly, Lasix was given which resulted in a good diuresis and improved pulmonary mechanics. Urine culture from previous to the admission showed Proteus, sensitive to ceftriaxone. She did well and this morning is back to her baseline, talked with her son who notes that she had decline in function at the halfway. They are interested in continuing DNR status at the halfway and ongoing palliative goals of care. However she is still receiving skilled care and they do not wish hospice consultation at this time. She will be transferred back to [facility] today. She will need to receive cefdinir 300 twice daily for the next 5 days. She will need a speech therapy consult for possible aspiration issues. We will follow her on her halfway rounds. Exam Data for Last 24 hours Vital signs and Labs for Last 24 Hours: Temp Pulse Resp BP Pulse Ox FiO2 97.6 F 81 24 153/64 H 92 L 40 09/29/22 08:00 09/29/22 08:00 09/29/22 08:00 09/29/22 08:00 09/29/22 08:00 09/28/22 06:29 Laboratory Results - last 24 hr 09/29/22 06:45: WBC 11.6 H, RBC 3.93 L, Hgb 10.9 L, Hct 34.8 L, MCV 88.6, MCH 27.8, MCHC 31.4 L, RDW 14.8, Plt Count 247, MPV 8.0, Neut % (Auto) 88.8 H, Lymph % (Auto) 7.9 L, [place] % (Auto) 2.3, Eos % (Auto) 0.7, Baso % (Auto) 0.2, Neut # (Auto) 10.3 H, Lymph # (Auto) 0.9, [place] # (Auto) 0.3, Eos # (Auto) 0.1, Baso # (Auto) 0.0, Total Counted 100, Neutrophils % (Manual) 89 H, Lymphocytes % (Manual) 9 L, Monocytes % (Manual) 2, Platelet Estimate Normal, RBC Morphology Normal 09/29/22 06:45: Sodium 143, Potassium 3.9, Chloride 107, Carbon Dioxide 27, Anion Gap 12.9, BUN 68 H, Creatinine 2.20 H, Estimated Creat Clear 15, Estimated GFR 22 L, Est GFR ( Amer) 26 L, Glucose 199 H D, Calcium 7.8 L I & O for Last 24 hours: Intake & Output 09/26/22 09/27/22 09/28/22 09/29/22 11:59 11:59 11:59 11:59 Intake Total 760 / 760 580 / 580 540 / 540 960 / 960 Output Total 0 / 0 0 / 0 0 / 0 300 / 300 Balance 760 / 760 580 / 580 540 / 540 660 / 660 Weight 98 lb 3.808 oz 99 lb 1.565 oz 98 lb 97 lb 15.998 oz Constitutional Constitutional: chronically ill appearing *Routine HEENT Exam Head: Present normocephalic Eye: Present EOMI and PERRL ENT: Present mucous membranes moist *Routine Neck Exam Neck: Present supple; Absent lymphadenopathy *Routine Respiratory Exam Respiratory: Present rhonchi Comments: Better air movement than on admission. Still with scattered rhonchi. *Routine Cardiovascular Exam Cardiovascular: Present RRR *Routine Abdominal Exam Abdominal: Present soft and normoactive bowel sounds; Absent tenderness *Routine Extremities Exam Extremities: Absent cyanosis, clubbing or edema *Routine Skin Exam Skin: Present warm; Absent rash *Routine Neurological Exam Neurological: Present alert Comments: Oriented x2. Previously noted left facial droop from her stroke in the remote past. Results Data Completed and Pending Labs on day of discharge: Labs from last 24 hours 09/29/22 09/29/22 06:45 06:45 WBC 11.6 H RBC 3.93 L Hgb 10.9 L Hct 34.8 L MCV 88.6 MCH 27.8 MCHC 31.4 L RDW 14.8 Plt Count 247 MPV 8.0 Neut % (Auto) 88.8 H Lymph % (Auto) 7.9 L [place] % (Auto) 2.3
[2022-09-29 09:38] LABS: Coronavirus 19, PCR Not Detected (NotDetected); Influenza A, PCR Not Detected (NotDetected); Influenza B, PCR Not Detected (NotDetected)
[2022-09-29 10:18] VITALS: PULSE 77; PULSE 82; O2SAT 93
--- NOTE | 2022-09-30 10:29 | CARE MANAGER ---
Contacted [facility] related to hospital discharge. They state she is doing very well and deny any questions or concerns. LEONIDAS Flannery
== END 2022-09-29 11:26 | DRG 193 ==
LOC: ER 20:24 → 2ND 21:59
PROVIDERS: Admitting Provider Family Medicine; Emergency Provider Emergency Medicine; PCP Internal Medicine Adolescent Medicine; Visit Provider Internal Medicine Adolescent Medicine
DX: J18.9 Pneumonia, unspecified organism (principal); A41.9 Sepsis, unspecified organism; J96.21 Acute and chronic respiratory failure with hypoxia; Y95 Nosocomial condition; J43.9 Emphysema, unspecified; F03.90 Unspecified dementia, unspecified severity, without behavioral disturbance, psychotic disturbance, mood disturbance, and anxiety; Z66 Do not resuscitate; Z51.5 Encounter for palliative care; Z99.81 Dependence on supplemental oxygen
CPT/HCPCS: 36415; 71045; 71046; 80048; 80053; 81001; 82803; 83605; 83880; 84484; 85007; 85025; 87040; 87086; 87088; 87186; 92610; 93005; 94640; 94761; 99291; C9803; J0131; J0692; J0696; J1956; J3370; U0003; U0005

== ENCOUNTER 2023-04-04 03:05 | Inpatient (IN) | payer MEDICARE, MEDICAID, SELFPAY ==
[2023-04-04] VITALS (19 sets, daily range): BP systolic 90–137; BP diastolic 46–71; PULSE 75–94; RESP 0–22; TEMP 36.4–37.3; O2SAT 78–99; BMI 21.4; BMI 21.6
--- NOTE | 2023-04-04 | CA_ITS ---
FINAL REPORT TECHNIQUE: Bilateral lower extremity venous duplex was performed with augmentation and compression. CLINICAL HISTORY: .ELEVATED D-DIMER, COPD-EXACERBATION, bilateral lower extremity edema COMPARISON: none FINDINGS: Proper flow is seen throughout the deep venous systems bilaterally. There is no evidence of deep venous thrombosis. IMPRESSION: No evidence of deep venous thrombosis. Reviewed, Interpreted and Dictated by Poli Mendes MD Transcribed by Lulu Ferrer Authenticated and [facility]
--- NOTE | 2023-04-04 03:10 | PC.NURSE ---
Attempted to call son. No answer at this time.
--- NOTE | 2023-04-04 03:15 | ECG_ITS ---
APPROVED REPORT Exam: Resting ECG HR:85 bpm ECG Measurements Heart Rate 85 AXES IA 171 P 64 QRSd 83 QRS 54 QT 361 T 77 QTc 403 Conclusion SINUS RHYTHM LOW QRS VOLTAGE IN PRECORDIAL LEADS [QRS DEFLECTION < 1.0 mV IN CHEST LEADS] MINIMAL ST DEPRESSION [0.025+ mV ST DEPRESSION] BORDERLINE ECG UNCONFIRMED REPORT Electronically signed by : Nas Marques MD 04/04/2023 20:50:02
--- NOTE | 2023-04-04 03:15 | XR_ITS ---
PROCEDURE INFORMATION: Exam: XR Chest Exam date and time: 04/04/2023 3:14 AM Age: 77 years old Clinical indication: Shortness of breath; Additional info: Hypoxia TECHNIQUE: Imaging protocol: Radiologic exam of the chest. Views: 1 view. COMPARISON: CR XR CHEST 2V 09/28/2022 1:29 PM FINDINGS: Lungs: There is stable scarring at the left lung base. Pleural spaces: Unremarkable. No pleural effusion. No pneumothorax. Heart/Mediastinum: Unremarkable. No cardiomegaly. Vasculature: Scattered atherosclerotic disease of the arterial vasculature. There are calcifications of the aortic arch. Bones/joints: Unremarkable. IMPRESSION: No dense parenchymal consolidation pleural effusion or pneumothorax.
--- NOTE | 2023-04-04 03:18 | HMH.EDGENADL ---
Discharge Plan Disposition Patient Disposition: Admitted Condition: Fair Chief Complaint: Shortness of Breath/Dyspnea Clinical Impressions Clinical Impression: Acute exacerbation of chronic obstructive airways disease Sepsis Qualifiers: Sepsis type: sepsis due to unspecified organism Sepsis acute organ dysfunction status: without acute organ dysfunction Qualified Code(s): A41.9 - Sepsis, unspecified organism Discharge ED Provider: Jacquie Alcocer General Adult HPI General Chief complaint: Shortness of Breath/Dyspnea Stated complaint: weak Time Seen by Provider: 04/04/23 03:18 History of Present Illness HPI narrative: This 77-year-old female presents from skilled nursing with concerns of respiratory distress. Patient was checked on around 0030 and staff noticed she had increased work of breathing and diminished responsiveness. Per EMS they report that skilled nursing increased her oxygen from 2 L to 4 L and administered 1 breathing treatment. On EMS arrival patient was hypoxic and hypotensive with blood pressure in the 70s. They administered DuoNeb during transport. Patient knows her name and tells me she has had a cough and chest pain for the last week. She denies nausea, vomiting, diarrhea, fever. She cannot provide other history. Review of skilled nursing records demonstrates patient is DNR, DNI. DNR paperwork that was present with the patient at this time is a [place] emergency medical services DNR order that explicitly states I understand that DNR means that if my heart stops beating or if I stop breathing, no medical procedure to restart breathing or heart function, more specifically the insertion of the tube into the lungs, or electrical shocking of the heart or cardiopulmonary resuscitation (CPR) will be started by emergency medical service personnel. This paperwork was signed on 04/11/2021 by patient's legal surrogate Twan Delgado (son). Family is unable to be reached by phone at this time for additional history or review of these wishes. Patient is not able to answer these questions at this time. Review of prior records demonstrates patient was diagnosed with pneumonia in September and treated in the hospital for similar symptoms. Review of skilled nursing records also demonstrates patient has history of vascular dementia and COPD. Related Data Home Medications Medication Instructions Recorded Confirmed albuterol sulfate 90 mcg/actuation 2 puff inhalation TIDP PRN 04/04/23 04/04/23 aerosol inhaler Breathing Problems amlodipine 5 mg tablet 5 mg PO DAILY High Blood Pressure 04/04/23 04/04/23 atorvastatin 80 mg tablet 80 mg PO DAILY High Cholesterol 04/04/23 04/04/23 azelastine 0.05 % eye drops 1 drp Eye-Both DAILY Eye problem 04/04/23 04/04/23 carvedilol 25 mg tablet 25 mg PO BID Heart Rhythm 04/04/23 04/04/23 hydroxyzine HCl 25 mg tablet 25 mg PO TID Anxiety 04/04/23 04/04/23 ipratropium 0.5 mg-albuterol 3 mg 3 ml inhalation TIDP PRN Breathing 04/04/23 04/04/23 (2.5 mg base)/3 mL nebulization Problems soln levocetirizine 5 mg tablet 5 mg PO DAILY Allergy Symptoms 04/04/23 04/04/23 mirtazapine 7.5 mg tablet 7.5 mg PO DAILY Pain 04/04/23 04/04/23 montelukast 10 mg tablet 10 mg PO DAILY Allergy Symptoms 04/04/23 04/04/23 tiotropium 2.5 mcg-olodaterol 2.5 2 puff inhalation TIDP PRN 04/04/23 04/04/23 mcg/actuation mist for inhalation Breathing Problems (Stiolto Respimat) Allergies Allergy/AdvReac Type Severity Reaction Status Date / Time Penicillins Allergy Rash Verified 01/20/21 07:57 [facility] Disclaimer: The information contained in this section may have been updated after the patient was seen, as this information can be updated by other users. Medical History (Updated 04/04/23 @ 05:47 by Jacquie Alcocer MD) Abdominal aortic aneurysm, without rupture, unspecified Acute and chronic respiratory failure with hypoxia Acute kidney failure, unspecified Altered mental status, unspecified Chronic kidney disease,
--- NOTE | 2023-04-04 03:21 | PC.NURSE ---
RAD at for CXR
--- NOTE | 2023-04-04 03:26 | CT_ITS ---
PROCEDURE INFORMATION: Exam: CT Head Without Contrast Exam date and time: 04/04/2023 3:38 AM Age: 77 years old Clinical indication: Altered mental status/memory loss; Additional info: AMS TECHNIQUE: Imaging protocol: Computed tomography of the head without contrast. Radiation optimization: All CT scans at this facility use at least one of these dose optimization techniques: automated exposure control; mA and/or kV adjustment per patient size (includes targeted exams where dose is matched to clinical indication); or iterative reconstruction. REPORTING DATA: Count of CT and Cardiac NM exams in prior 12 months: This patient has received 0 known CTs and 0 known cardiac nuclear medicine studies in the 12 months prior to the current study. COMPARISON: CT HEAD/BRAIN WO CON 05/22/2021 11:52 AM FINDINGS: Brain: There are changes of prior right HAN territory infarct which have developed since the comparison study dated 2020. There are scattered white matter changes with areas of hypodensity which are nonspecific but most likely reflect chronic microvascular disease. No evidence for acute intracranial hemorrhage, midline shift, or mass effect. No compelling evidence for acute transcortical infarct. Cerebral ventricles: There is enlargement of the ventricles and sulci compatible with age-related atrophy. Paranasal sinuses: Visualized sinuses are unremarkable. No fluid levels. Mastoid air cells: Visualized mastoid air cells are well aerated. Bones/joints: Unremarkable. No acute fracture. Soft tissues: Unremarkable. Other findings: Extensive parenchymal calcification is again noted. IMPRESSION: Age-related changes without acute abnormality detected.
[2023-04-04 03:28] LABS: VBG Base Excess -10.2 mmol/L (-2.4-2.3); VBG HCO3 17.9 mmol/L (23-30); VBG Oxygen Saturation 54.6 % (50-70); VBG PCO2 47.5 mmol/L (35-51); VBG PO2 32.8 mmol/L (28-40); VBG Total CO2 19.4 mmol/L (23-27)
[2023-04-04 03:31] LABS: VBG PH 7.19 mmol/L (7.31-7.41)
--- NOTE | 2023-04-04 03:33 | PC.NURSE ---
Pt gone to RAD via stretcher for CT
[2023-04-04 03:36] LABS: Basophils % 0.1 % (0.1-2.0); Eosinophils # 0.1 K/mm3 (0.0-0.4); Eosinophils % 0.5 % (0.1-12.0); Hematocrit 41.4 % (37.0-47.0); Hemoglobin 12.7 g/dL (12.2-16.2); Lymphocytes # 1.5 K/mm3 (0.7-4.5); Lymphocytes % 10.7 % (10-50); Mean Corpuscular HGB Conc 30.7 g/dL (31.8-35.4); Mean Corpuscular Volume 91.2 fl (81-99); Mean Platelet Volume 8.7 fl (7.4-10.4); Monocytes # 0.8 K/mm3 (0.1-1.0); Monocytes % 5.5 % (1.7-9.3); Neutrophils # 11.8 K/mm3 (1.8-7.8); Neutrophils % 83.1 % (37.0-80.0); Platelet Count 175 K/mm3 (142-424); Red Blood Count 4.54 M/mm3 (4.20-5.40); Red Cell Distribution Width 16.4 % (11.5-17.5); White Blood Count 14.2 K/mm3 (4.8-10.8)
[2023-04-04 03:44] LABS: Alanine Aminotransferase 21 U/L (12-78); Albumin Level 3.6 g/dl (3.5-5.0); Albumin/Globulin Ratio 0.8 (1.1-1.8); Alkaline Phosphatase 113 U/L (38-126); Anion Gap 16.9 mEq/L (5-15); Aspartate Amino Transferase 26 U/L (14-36); Bilirubin,Total 0.5 mg/dl (0.2-1.3); Blood Urea Nitrogen 49 mg/dl (7-17); Calcium 8.5 mg/dl (8.4-10.2); Carbon Dioxide 22 mmol/L (22.0-30.0); Chloride 109 mmol/L (98-107); Creatinine Clearance Estimated 15 mL/min (50-200); Estimated Glomerular Filt Rate 21 ml/min (>60); GFR (African American) 25 ML/MIN (>60); Globulin 4.3 g/dL (1.3-3.2); Glucose 118 mg/dl (74-100); Potassium 5.9 mmoL/L (3.5-5.1); Sodium 142 mmol/L (136-145); Total Protein,Serum 7.9 g/dl (6.3-8.2)
[2023-04-04 03:45] LABS: Lactic Acid 0.8 mmol/L (0.7-2.1)
--- NOTE | 2023-04-04 03:45 | PC.NURSE ---
Pt returned from RAD
[2023-04-04 03:55] LABS: Troponin I 0.16 ng/ml (0.00-0.034)
[2023-04-04 04:01] LABS: Procalcitonin 0.536 ng/mL (0.0-2.0)
--- NOTE | 2023-04-04 04:07 | PC.NURSE ---
RT at BS to administer duo-neb
--- NOTE | 2023-04-04 04:27 | PC.NURSE ---
pt moved to 6l o2 and saturation holding at 93%
--- NOTE | 2023-04-04 05:24 | PC.NURSE ---
OBSERVATION ADMISSION TO 208 WITH DX OF COPD WITH EXACERBATION AND SEPSIS TO SERVICE OF THE HOSPITALIST.
[2023-04-04 05:34] LABS: Potassium 5.9 mmoL/L (3.5-5.1)
--- NOTE | 2023-04-04 05:54 | EXP.HP ---
History of Present Illness *Admission Date: 04/04/23 *Reason for visit:: COPD exacerbation *History of present illness: 77 year old female sent to the ED via ems from [facility] for c/o respiratory distress. Pt was checked on around midnight and increased work of breathing was noted. On EMS arrival patient was hypoxic and hypotensive with blood pressure in the 70s. They administered DuoNeb during transport. In the ED the patient was normotensive, patient's heart rate was initially above 90, she was hypoxic to 87% on 6 L nasal cannula and was placed on nonrebreather. The patient is a poor historian and is unable to provide medical hx. ED work up revealed leukocytosis with WBC 14.2, anemia, VBG with pH 7.19, low bicarb (17.9), no hypercarbia or hypoxia on VBG. The patient's EKG is without ST changes. She has an elevated troponin which is chronic for the pt along with an elevated creatinine. Her itinal and repeat BMP demonstrates hyperkalemia and was treated with lokelma in the ED. She was also started on solu-medrol, vancomycin, cefepime, and azithromycin. The ED physician consulted the hospitalist team for admission. The patient arrived to the medical floor on 6L and is still only alert to self. [facility] Disclaimer: The information contained in this section may have been updated after the patient was seen, as this information can be updated by other users. Medical History (Updated 04/04/23 @ 05:56 by JAKI Rivera) Abdominal aortic aneurysm, without rupture, unspecified Acute and chronic respiratory failure with hypoxia Acute kidney failure, unspecified Altered mental status, unspecified Chronic kidney disease, unspecified Chronic obstructive pulmonary disease with (acute) exacerbation Concussion with loss of consciousness status unknown, initial encounter Dehydration Disorder of kidney and ureter, unspecified Disorientation, unspecified Enterocolitis due to Clostridium difficile, not specified as recurrent Essential (primary) hypertension Gastro-esophageal reflux disease without esophagitis Other specified abnormalities of plasma proteins Other specified disorders of bone density and structure, unspecified site Pneumonia, unspecified organism Rhabdomyolysis Sepsis, unspecified organism Unspecified fall, initial encounter Unspecified sequelae of cerebral infarction Vascular dementia, unspecified severity, without behavioral disturbance, psychotic disturbance, mood disturbance, and anxiety Social History Smoking Status: Current every day smoker tobacco type: cigarettes alcohol intake: never current occupational status: retired Travel in the last 8 weeks: None Review of Systems Review of Systems Review of systems:: unable to obtain *Cardiovascular Comments: edna *Respiratory Respiratory: Reports as per HPI *Gastrointestinal Comments: edna *Genitourinary Comments: edna *Musculoskeletal Comments: edna *Neurologic Comments: edna Meds Home Medications and Allergies Home Medications Medication Instructions Recorded Confirmed Type albuterol sulfate 90 mcg/actuation 2 puff inhalation TIDP PRN 04/04/23 04/04/23 History aerosol inhaler Breathing Problems amlodipine 5 mg tablet 5 mg PO DAILY High Blood Pressure 04/04/23 04/04/23 History atorvastatin 80 mg tablet 80 mg PO HS Cholesterol 04/04/23 04/04/23 History azelastine 0.05 % eye drops 1 drp Eye-Both DAILY eyes 04/04/23 04/04/23 History carvedilol 25 mg tablet 25 mg PO BID heart rate 04/04/23 04/04/23 History hydroxyzine HCl 25 mg tablet 25 mg PO TID Anxiety 04/04/23 04/04/23 History ipratropium 0.5 mg-albuterol 3 mg 3 ml inhalation TIDP PRN Breathing 04/04/23 04/04/23 History (2.5 mg base)/3 mL nebulization Problems soln levocetirizine 5 mg tablet 5 mg PO DAILY Allergies 04/04/23 04/04/23 History mirtazapine 7.5 mg tablet 7.5 mg PO DAILY Depression 04/04/23 04/04/23 History montelukas
--- NOTE | 2023-04-04 06:05 | PC.NURSE ---
Pt arrived to the floor via stretcher @ [id number]
[2023-04-04 07:34] LABS: Basophils % 0.1 % (0.1-2.0); Eosinophils % 0.2 % (0.1-12.0); Hematocrit 38.3 % (37.0-47.0); Hemoglobin 11.6 g/dL (12.2-16.2); Lymphocytes # 1.6 K/mm3 (0.7-4.5); Lymphocytes % 16.1 % (10-50); Mean Corpuscular HGB Conc 30.2 g/dL (31.8-35.4); Mean Corpuscular Hemoglobin 27.8 pg (27.0-31.2); Mean Corpuscular Volume 91.9 fl (81-99); Mean Platelet Volume 8.4 fl (7.4-10.4); Monocytes # 0.3 K/mm3 (0.1-1.0); Monocytes % 3.2 % (1.7-9.3); Neutrophils # 7.8 K/mm3 (1.8-7.8); Neutrophils % 80.4 % (37.0-80.0); Platelet Count 161 K/mm3 (142-424); Red Blood Count 4.17 M/mm3 (4.20-5.40); Red Cell Distribution Width 16.4 % (11.5-17.5); White Blood Count 9.7 K/mm3 (4.8-10.8)
[2023-04-04 07:38] LABS: Chloride 113 mmol/L (98-107); Sodium 140 mmol/L (136-145)
[2023-04-04 07:41] LABS: Blood Urea Nitrogen 50 mg/dl (7-17); Creatinine Clearance Estimated 18 mL/min (50-200); Estimated Glomerular Filt Rate 23 ml/min (>60); GFR (African American) 28 ML/MIN (>60)
[2023-04-04 07:42] LABS: Anion Gap 17.1 mEq/L (5-15); Calcium 8.1 mg/dl (8.4-10.2); Carbon Dioxide 16 mmol/L (22.0-30.0); Glucose 123 mg/dl (74-100)
[2023-04-04 07:47] LABS: ABG Base Excess -10.2 mmol/L (-2.4-2.3); ABG HCO3 17.4 mmhg (22.0-26.0); ABG Oxygen Saturation 82 % (90-100); ABG PCO2 42.6 mmhg (35.0-45.0); ABG PH 7.23 mmol/L (7.35-7.45); ABG TCO2 18.7 mmhg (23-27)
[2023-04-04 07:48] LABS: Potassium 6.1 mmoL/L (3.5-5.1)
[2023-04-04 07:49] LABS: Oxygen 5 LPM %
[2023-04-04 07:50] LABS: Allen's Test ACCEPTABLE; Source Right Radial
[2023-04-04 07:54] LABS: Troponin I 0.11 ng/ml (0.00-0.034)
--- NOTE | 2023-04-04 07:59 | PC.NURSE ---
tele placed on pt at this time
--- NOTE | 2023-04-04 08:05 | PC.NURSE ---
RESP CARE NOTE: Pt placed on 20L/50% vapotherm due to hypoxia on ABG. Will continue to monitor patient.
[2023-04-04 08:17] LABS: Acetone, Serum (Rapid) None Detected (None Detect)
[2023-04-04 08:26] LABS: Ethyl Alcohol < 10 mg/dl (0-10); Salicylate < 1.0 mg/dL (2.0-20.0)
[2023-04-04 08:31] LABS: NT Pro Brain Natriuretic Pep. 1440 pg/mL (0-450)
--- NOTE | 2023-04-04 08:57 | PC.NURSE ---
in am report, shiftman nurse stated pt has been hard to arouse, pt would not wake up enough to take the po lokelma. 0745:this nurse and tech attempted to wake pt to eat breakfast and drink lokelma. pt woke to sterum rub, pt stated leave me alone or i'll knock the shit out of you . talked with pt about the need to take medication, asked pt if she wanted to eat she replied with no leave me alone and pt pulled her blanket back over herself. unable to assess pts mental status at that time due to pt being uncooperative. notified md about pts current state and ref po meds vapotherm applied by RT at 0805 at this time pt remains difficult to arouse. has rounded on pt.
[2023-04-04 09:25] LABS: Lactic Acid 0.8 mmol/L (0.7-2.1)
[2023-04-04 09:31] LABS: D-Dimer 1.16 ug/mL (0.0-0.5)
--- NOTE | 2023-04-04 09:35 | PC.NURSE ---
RESP CARE NOTE: Pt SPO2 remains 96% on 20L/50% vapotherm. Per Dr Wade keep SPO2 at 95% or above. Will hold off placement of BIPAP until son arrives.
[2023-04-04 09:36] LABS: Troponin I 0.12 ng/ml (0.00-0.034)
[2023-04-04 12:25] LABS: Chloride 114 mmol/L (98-107); Potassium 5.5 mmoL/L (3.5-5.1); Sodium 141 mmol/L (136-145)
[2023-04-04 12:28] LABS: Blood Urea Nitrogen 50 mg/dl (7-17); Creatinine Clearance Estimated 18 mL/min (50-200); Estimated Glomerular Filt Rate 23 ml/min (>60); GFR (African American) 28 ML/MIN (>60)
[2023-04-04 12:29] LABS: Anion Gap 14.5 mEq/L (5-15); Calcium 8.1 mg/dl (8.4-10.2); Carbon Dioxide 18 mmol/L (22.0-30.0); Glucose 112 mg/dl (74-100)
[2023-04-04 13:13] LABS: ABG Base Excess -10.2 mmol/L (-2.4-2.3); ABG HCO3 18.4 mmhg (22.0-26.0); ABG Oxygen Saturation 94 % (90-100); ABG PO2 77.5 mmhg (80-100)
[2023-04-04 13:15] LABS: Allen's Test ACCEPTABLE; Source Right Radial
[2023-04-04 13:16] LABS: ABG PCO2 51.8 mmhg (35.0-45.0); ABG PH 7.17 mmol/L (7.35-7.45)
[2023-04-04 13:38] LABS: Microscopic, Urine URINE MICROSCOPIC (MICROSCOPIC)
[2023-04-04 13:46] LABS: Appearance,Urine CLEAR (Clear); Bilirubin,Urine Negative (Negative); Blood, Urine Negative (Negative); Color,Urine YELLOW (Yellow); Glucose,Urine (UA) Negative (Negative); Ketones,Urine Negative (Negative); Leukocyte Esterase,Urine Negative (Negative); Nitrate,Urine Negative (Negative); PH,Urine 5.5 (5.0-8.5); Protein,Urine 1+ (Negative); Specific Gravity, Urine 1.025 (1.005-1.030); Urobilinogen,Urine 0.2 EU/dl (0.2)
[2023-04-04 13:58] LABS: Amphetamine/Metha Screen,Urine Negative ng/ml (<1000)
[2023-04-04 13:59] LABS: Barbiturates Screen,Urine Negative ng/ml (<200); Benzodiazepines Screen,Urine Negative ng/ml (<200)
[2023-04-04 14:00] LABS: Cannabinoid Screen,Urine Negative ng/ml (<50)
[2023-04-04 14:01] LABS: Cocaine Screen,Urine Negative ng/ml (<300); Methadone Screen,Urine Negative ng/ml (<300)
[2023-04-04 14:02] LABS: Opiate Screen,Urine Negative ng/ml (<300)
[2023-04-04 14:03] LABS: Phencyclidine Screen,Urine Negative ng/ml (<25)
[2023-04-04 14:24] LABS: Bacteria,Urine Trace /lpf; Squamous Epithelial Cell,Urine Occasional #/hpf (0-5); WBC,Urine Occasional #/hpf (0-3)
[2023-04-04 15:44] LABS: ABG Base Excess -11.9 mmol/L (-2.4-2.3); ABG HCO3 16.7 mmhg (22.0-26.0); ABG Oxygen Saturation 96 % (90-100); ABG PCO2 47.9 mmhg (35.0-45.0); ABG TCO2 18.2 mmhg (23-27)
[2023-04-04 15:46] LABS: Oxygen 40 %
[2023-04-04 15:47] LABS: ABG PH 7.16 mmol/L (7.35-7.45); Pressure Support BIPAP 15/6; Source Right Brachial
[2023-04-05] VITALS (11 sets, daily range): BP systolic 95–147; BP diastolic 50–77; PULSE 65–90; RESP 16–24; TEMP 36.1–37.2; O2SAT 91–98; BMI 20.5; BMI 20.3
--- NOTE | 2023-04-05 05:03 | PC.NURSE ---
Pt taken off bipap for a break at 0400, placed on nasal cannula titrated to keep saturations at 95%.
[2023-04-05 06:45] LABS: Chloride 119 mmol/L (98-107)
[2023-04-05 06:46] LABS: Potassium 5.5 mmoL/L (3.5-5.1); Sodium 143 mmol/L (136-145)
[2023-04-05 06:48] LABS: Alanine Aminotransferase 16 U/L (12-78); Albumin Level 2.5 g/dl (3.5-5.0); Albumin/Globulin Ratio 0.7 (1.1-1.8); Alkaline Phosphatase 82 U/L (38-126); Anion Gap 14.5 mEq/L (5-15); Aspartate Amino Transferase 21 U/L (14-36); Bilirubin,Total 0.3 mg/dl (0.2-1.3); Blood Urea Nitrogen 56 mg/dl (7-17); Carbon Dioxide 15 mmol/L (22.0-30.0); Creatinine Clearance Estimated 19 mL/min (50-200); Estimated Glomerular Filt Rate 26 ml/min (>60); GFR (African American) 31 ML/MIN (>60); Globulin 3.5 g/dL (1.3-3.2); Glucose 116 mg/dl (74-100)
[2023-04-05 06:49] LABS: Calcium 8.2 mg/dl (8.4-10.2)
[2023-04-05 06:59] LABS: Basophils % 0.2 % (0.1-2.0); Eosinophils % 0.3 % (0.1-12.0); Hematocrit 35.6 % (37.0-47.0); Hemoglobin 10.6 g/dL (12.2-16.2); Lymphocytes # 1.3 K/mm3 (0.7-4.5); Mean Corpuscular HGB Conc 29.9 g/dL (31.8-35.4); Mean Corpuscular Hemoglobin 28.5 pg (27.0-31.2); Mean Corpuscular Volume 95.4 fl (81-99); Mean Platelet Volume 8.8 fl (7.4-10.4); Monocytes # 0.5 K/mm3 (0.1-1.0); Monocytes % 3.1 % (1.7-9.3); Neutrophils % 87.5 % (37.0-80.0); Platelet Count 136 K/mm3 (142-424); Red Blood Count 3.73 M/mm3 (4.20-5.40); Red Cell Distribution Width 16.5 % (11.5-17.5); White Blood Count 14.8 K/mm3 (4.8-10.8)
--- NOTE | 2023-04-05 07:00 | XR_ITS ---
FINAL REPORT TECHNIQUE: Single view chest CLINICAL HISTORY: copd exac FINDINGS: A single view of the chest was obtained. The heart is mildly enlarged. There are chronic changes bilaterally, particularly at the lung apices. There is mild left base consolidation which may be due to a small focus of pneumonia. There is no pneumothorax. Osseous structures are unremarkable. IMPRESSION: Mild left base consolidation which would be due to small focus of pneumonia. Reviewed, Interpreted and Dictated by Poli Mendes MD Transcribed by Mariely Barnett Authenticated and [facility]
[2023-04-05 07:02] LABS: MANUAL DIFFERENTIAL MANUAL DIFFERENTIAL (MANUAL DIFF)
[2023-04-05 07:34] LABS: Lymphocytes % 7 % (10-50); Monocytes % 1 % (2-9); Neutrophils % 92 % (42-76); Platelet Estimate Slight Decrease; RBC Morphology Normal; Total Cells Counted 100
--- NOTE | 2023-04-05 08:11 | EXP.PN ---
Subjective *Date: 04/05/23 *Time: 10:00 Interval history: The patient is doing better. She was weaned off BIPAP and now on nasal cannula. She is hungry. Exam Data for Last 24 hours Vital signs and Labs for Last 24 Hours: Temp Pulse Resp BP Pulse Ox O2 Del Method O2 Flow Rate 98.1 F 86 16 125/58 L 91 L Nasal Cannula 4 04/05/23 04:00 04/05/23 06:10 04/05/23 04:00 04/05/23 04:00 04/05/23 06:10 04/05/23 06:34 04/05/23 06:10 FiO2 40 04/04/23 22:15 Laboratory Results - last 24 hr 04/04/23 05:27: Urine Color Yellow, Urine Appearance Clear, Urine pH 5.5, Ur Specific Mar[place] 1.025, Urine Protein 1+, Urine Glucose (UA) Negative, Urine Ketones Negative, Urine Blood Negative, Urine Nitrate Negative, Urine Bilirubin Negative, Urine Urobilinogen 0.2, Ur Leukocyte Esterase Negative, Urine RBC None, Urine WBC Occasional, Ur Squamous Epith Cells Occasional, Urine Bacteria Trace, Urine Opiates Screen Negative, Urine Methadone Screen Negative, Ur Barbituates Screen Negative, Ur Phencyclidine Scrn Negative, Ur Amphetamines Screen Negative, U Benzodiazepines Scrn Negative, Urine Cocaine Screen Negative, U Marijuana (THC) Screen Negative 04/04/23 07:12: NT-Pro-B Natriuret Pep 1440 H, Salicylates < 1.0 L, Plasma/Serum Alcohol < 10, Acetone Level None detected 04/04/23 09:02: D-Dimer 1.16 H, Lactate 0.8, Troponin I 0.12 H 04/04/23 12:01: Specimen Source Right radial, O2 % 20l/50%, ABG pH 7.17 L*, ABG pCO2 51.8 H, ABG pO2 77.5 L, ABG HCO3 18.4 L, ABG Total CO2 20.0 L, ABG O2 Saturation 94, ABG Base Excess -10.2 L, William Test Acceptable 04/04/23 12:09: Sodium 141, Potassium 5.5 H, Chloride 114 H, Carbon Dioxide 18 L, Anion Gap 14.5, BUN 50 H, Creatinine 2.10 H, Estimated Creat Clear 18, Estimated GFR 23 L, Est GFR ( Amer) 28 L, Glucose 112 H, Calcium 8.1 L 04/04/23 15:30: Specimen Source Right brachial, O2 % 40, ABG pH 7.16 L*, ABG pCO2 47.9 H, ABG pO2 90.0, ABG HCO3 16.7 L, ABG Total CO2 18.2 L, ABG O2 Saturation 96, ABG Base Excess -11.9 L, William Test N/a 04/05/23 06:09: WBC 14.8 H D, RBC 3.73 L, Hgb 10.6 L, Hct 35.6 L, MCV 95.4, MCH 28.5, MCHC 29.9 L, RDW 16.5, Plt Count 136 L, MPV 8.8, Neut % (Auto) 87.5 H, Lymph % (Auto) 9.0 L, [place] % (Auto) 3.1, Eos % (Auto) 0.3, Baso % (Auto) 0.2, Neut # (Auto) 13.0 H, Lymph # (Auto) 1.3, [place] # (Auto) 0.5, Eos # (Auto) 0.0, Baso # (Auto) 0.0, Total Counted 100, Neutrophils % (Manual) 92 H, Lymphocytes % (Manual) 7 L, Monocytes % (Manual) 1 L, Platelet Estimate Slight decrease, RBC Morphology Normal, Sodium 143, Potassium 5.5 H, Chloride 119 H, Carbon Dioxide 15 L, Anion Gap 14.5, BUN 56 H, Creatinine 1.90 H, Estimated Creat Clear 19, Estimated GFR 26 L, Est GFR ( Amer) 31 L, Glucose 116 H, Calcium 8.2 L, Total Bilirubin 0.3, AST 21, ALT 16, Alkaline Phosphatase 82, Total Protein 6.0 L, Albumin 2.5 L D, Globulin 3.5 H, Albumin/Globulin Ratio 0.7 L I & O for Last 24 hours: Intake & Output 04/02/23 04/03/23 04/04/23 04/05/23 23:59 23:59 23:59 23:59 Intake Total 100 / 100 1150 / 1150 Output Total 350 / 350 400 / 400 Balance -250 / -250 750 / 750 Weight 49.895 kg 47.31 kg Constitutional Constitutional: chronically ill appearing *Routine HEENT Exam Head: Present normocephalic Eye: Present EOMI and PERRL ENT: Present mucous membranes moist *Routine Neck Exam Neck: Present supple; Absent lymphadenopathy *Routine Respiratory Exam Respiratory: Present accessory muscle use, prolonged expiratory phase and diminished air movement; Absent wheezes *Routine Cardiovascular Exam Cardiovascular: Present RRR *Routine Abdominal Exam Abdominal: Present soft and normoactive bowel sounds; Absent tenderness *Routine Extremities Exam Extremities: Absent cyanosis, clubbing or edema *Routine Skin Exam Skin: Present warm; Absent rash *Routine Neurological Exam Neurological: Present alert and oriented X3 Assessment and Plan *Assessment and plan (1) Acute exacerbation of chronic obstructive airways dise
--- NOTE | 2023-04-05 08:29 | DIET.NUTRFU ---
Spoke to [place] for diet clarification, she is on MSOFT ground. She does not wear her dentures. She is normally independent with meals. She receives whole milk with trays and fortified cereal with breakfast along with house supplement at [place]. Will start her to help meet nutritional needs. Recently discontinued remeron at [place]. Was here in 09/2022, wt stable slight gain, was 44kg in September.
--- NOTE | 2023-04-05 08:36 | SW/DCPLANNER ---
Addendum entered by Mary Lake 04/06/23 09:13: Updated patient information has been faxed to [facility] LE[facility]. Original Note: Patient currently resides at [facility] level of care. I will continue to follow up with MD pa and Manasa LEACH until patient is medically stable for discharge.
--- NOTE | 2023-04-05 09:38 | HMH.PHAINT1 ---
Pharmacy Intervention Comments: Medication history complete, medications verified with MAR from [facility]. - Madonna Vergara, PharmD Candidate 2023
--- NOTE | 2023-04-05 09:44 | CA_ITS ---
APPROVED REPORT EXAM: Comprehensive 2D, Doppler, and color-flow Echocardiogram Agriculture Worker: Lydia Mehta CRT Ht: 4 ft 11 in Wt: 104lbs BSA: 1.40 BP: 93/56 mmHg Indications: COPD, CVA/TIA, Hyperlipidemia, Hypertension/HDD, SOB, DNR, AAA, CKD, DEMENTIA, SMOKER 2D Dimensions LVOT 1.83 cm (M/F) 1.5-2.5 LA Volume 15.20 mL LA Volume Index 10.86 mL/m2 (M/F) 16-34 M-Mode Dimensions RVDd 2.14 cm (0.9-2.6) LA Diam 3.67 cm (1.9-4.0) LVDd 4.22 cm (3.5-5.7) Ao Diam 3.77 cm (2.0-3.7) LVDs 2.95 cm (3.5-5.7) IVSd 1.04 cm (0.6-1.1) PWd 0.46 cm (0.6-1.1) EF (Teich) 57.70% FS 30.10% EDV (Teich) 79.50 mL TAPSE 2.59 (<1.7) ESV (Teich) 33.60 mL LV Diastology E Decel Time 143.00 (160-240 msec) E/A Ratio 0.88 MED E' 6.80 (< 7 cm/sec) MED A' 11.20 cm/s E'/MED E' Ratio 13.96 (>14) LAT E' 7.80 (<10 cm/sec) LAT A' 11.90 cm/s E/LAT E' Ratio 12.17 (>14) Aortic Valve AO Peak GR. 4.00 mmHg Mitral Valve MV A Velocity 108.00 (40-130 cm/s) E/A Ratio 0.88 MV Decel. Time 143.00 (160-240 ms) Pulmonary Valve PV Peak Velocity 209.00 (50-150 cm/s) Tricuspid Valve TR P. Velocity 386.00 cm/s RAP Estimate 10.00 mmHg RVSP 69.60 mmHg Left Ventricle The left ventricle is normal size. The left ventricular systolic function is normal. The left ventricular ejection fraction is within the normal range. There is normal left ventricular wall thickness. There is normal LV segmental wall motion. Diastolic function is indeterminate. LVEF is 60%. Right Ventricle The RV free wall border is not well visualized, but the RV grossly appears mildly dilated. The right ventricular systolic function is normal. Atria The left atrium size is normal. The right atrium size is normal. Aortic Valve The aortic valve is mildly thickened. The aortic valve opens well. There is no aortic valvular stenosis. No aortic regurgitation is present. Mitral Valve The mitral valve is normal in structure. No evidence of mitral valve stenosis. Moderate mitral regurgitation. Tricuspid Valve The tricuspid valve leaflets are thin and pliable. Mild to moderate tricuspid regurgitation. RVSP is 50-55 mmHg. Pulmonic Valve The pulmonary valve is normal in structure. Trace pulmonic regurgitation. Great Vessels The aortic root is normal in size. The ascending aorta is not well visualized. IVC is normal in size and collapses >50% with inspiration. Pericardium There is no pericardial effusion. Other Information Study Quality: Fair Conclusion Normal biventricular systolic function. RV difficult to visualize, but grossly mildly dilated Moderate MR. Mild to moderate TR Elevated RVSP 50-55 mmHg. Electronically signed by : Deanne Allison, 04/05/2023 14:41:13
--- NOTE | 2023-04-05 11:45 | PC.NURSE ---
Addendum entered by Danielle Francis RN 04/05/23 11:55: pt on bipap at this time Original Note: per dr bobo, fransiscas p on bipap majority if the day, with breaks. no abg at this time. pt was awake and alert on am assessment.
[2023-04-06] VITALS (15 sets, daily range): BP systolic 111–148; BP diastolic 55–80; PULSE 84–97; RESP 18–37; TEMP 36.4–37.2; O2SAT 93–99; BMI 21.0
--- NOTE | 2023-04-06 12:27 | PC.NURSE ---
iv infiltrated and removed.
[2023-04-06 12:48] LABS: Basophils % 0.1 % (0.1-2.0); Chloride 121 mmol/L (98-107); Eosinophils % 0.1 % (0.1-12.0); Hematocrit 35.5 % (37.0-47.0); Hemoglobin 10.9 g/dL (12.2-16.2); Lymphocytes # 0.9 K/mm3 (0.7-4.5); Lymphocytes % 5.5 % (10-50); Mean Corpuscular HGB Conc 30.8 g/dL (31.8-35.4); Mean Corpuscular Hemoglobin 28.6 pg (27.0-31.2); Mean Corpuscular Volume 92.8 fl (81-99); Mean Platelet Volume 8.7 fl (7.4-10.4); Monocytes # 0.5 K/mm3 (0.1-1.0); Monocytes % 2.9 % (1.7-9.3); Neutrophils # 15.2 K/mm3 (1.8-7.8); Neutrophils % 91.5 % (37.0-80.0); Platelet Count 211 K/mm3 (142-424); Red Blood Count 3.82 M/mm3 (4.20-5.40); Red Cell Distribution Width 16.7 % (11.5-17.5); White Blood Count 16.6 K/mm3 (4.8-10.8)
[2023-04-06 12:49] LABS: Potassium 4.7 mmoL/L (3.5-5.1); Sodium 148 mmol/L (136-145)
[2023-04-06 12:51] LABS: Blood Urea Nitrogen 57 mg/dl (7-17); Creatinine Clearance Estimated 18 mL/min (50-200); Estimated Glomerular Filt Rate 24 ml/min (>60); GFR (African American) 29 ML/MIN (>60)
[2023-04-06 12:52] LABS: Anion Gap 16.7 mEq/L (5-15); Calcium 7.8 mg/dl (8.4-10.2); Carbon Dioxide 15 mmol/L (22.0-30.0); Glucose 153 mg/dl (74-100)
[2023-04-06 13:01] LABS: MANUAL DIFFERENTIAL MANUAL DIFFERENTIAL (MANUAL DIFF)
[2023-04-06 14:01] LABS: Lymphocytes % 6 % (10-50); Monocytes % 1 % (2-9); Neutrophils % 82 % (42-76); Platelet Estimate Normal; RBC Morphology Normal; Total Cells Counted 100
[2023-04-06 14:02] LABS: Anisocytosis 2+
--- NOTE | 2023-04-06 14:04 | DIET.NUTRFU ---
Resident was unable to eat meals yesterday secondary to Bipap. She was changed to nasal canula and should be able to add meal a bake
--- NOTE | 2023-04-06 17:07 | PC.NURSE ---
Pt. continually removes her cpap. Directed not to do so.
--- NOTE | 2023-04-06 20:02 | EXP.ACUTE.PN ---
Subjective *Date: 04/06/23 *Time: 20:02 Interval history: Patient continues to have respiratory distress. Tolerating BiPAP. Unable to tolerate off BiPAP for long today. Continues to have metabolic acidosis. Blood pressure appropriate, remains afebrile. Medical Exam Vital signs and Labs for Last 24 Hours: Vital Signs Temp Pulse Pulse Resp BP Pulse Ox O2 Del Method 04/06/23 20:01 85 04/06/23 20:01 95 H 04/06/23 18:52 04/06/23 18:52 84 04/06/23 18:51 97 H 04/06/23 18:04 CPAP 04/06/23 16:40 BiPAP 04/06/23 15:29 97.5 F L 87 18 111/56 L 99 BiPAP 04/06/23 15:00 CPAP 04/06/23 14:25 92 H 04/06/23 14:25 90 04/06/23 12:56 Vapotherm 04/06/23 08:00 95 CPAP 04/06/23 11:20 99.0 F 90 18 131/55 L 99 BiPAP 04/06/23 10:48 CPAP 04/06/23 09:00 CPAP 04/06/23 08:00 97.9 F 90 18 148/80 H 99 BiPAP 04/06/23 06:46 BiPAP 04/06/23 06:35 91 H 04/06/23 06:35 91 H 04/06/23 06:30 04/06/23 04:00 98.4 F 87 18 140/70 95 BiPAP 04/06/23 05:00 BiPAP 04/06/23 02:28 BiPAP 04/06/23 02:01 04/06/23 01:00 BiPAP 04/06/23 00:00 98.4 F 85 18 123/63 94 L Vapotherm 04/05/23 23:00 BiPAP 04/05/23 21:00 BiPAP 04/05/23 21:41 75 04/05/23 21:41 80 04/05/23 21:41 O2 Flow Rate FiO2 04/06/23 20:01 04/06/23 20:01 04/06/23 18:52 40 04/06/23 18:52 04/06/23 18:51 04/06/23 18:04 04/06/23 16:40 04/06/23 15:29 34 40 04/06/23 15:00 04/06/23 14:25 04/06/23 14:25 04/06/23 12:56 40 04/06/23 08:00 04/06/23 11:20 04/06/23 10:48 04/06/23 09:00 04/06/23 08:00 28 40 04/06/23 06:46 04/06/23 06:35 04/06/23 06:35 04/06/23 06:30 40 04/06/23 04:00 04/06/23 05:00 04/06/23 02:28 04/06/23 02:01 40 04/06/23 01:00 04/06/23 00:00 04/05/23 23:00 04/05/23 21:00 04/05/23 21:41 04/05/23 21:41 04/05/23 21:41 40 Intake and Output 04/06/23 04/06/23 04/06/23 07:59 15:59 23:59 Intake Total 1375 / 1675 300 / 1675 Output Total 750 / 750 0 / 750 0 / 750 Balance 625 / 925 300 / 925 0 / 925 Intake: Intake, Oral Amount 0 / 0 Intake, Total IV Amount 1375 / 1675 300 / 1675 0.9 % Sodium Chloride 1000ML 1, 1275 / 1275 000 ml @ 75 mls/hr IV .[id number] [facility] Rx#:[id number] Azithromycin 500 mg In 0.9 % 250 / 250 Sodium Chloride 250 ml @ 250 mls/hr IV Q24H [facility] Rx#:[id number] Cefepime HCl 1 gm In 0.9 % 50 / 50 Sodium Chloride 50 ml @ 100 mls /hr IV Q12H [facility] Rx#:[id number] Metronidaz/Sod Chl 500 mg In 100 / 100 100 ml @ 100 mls/hr IV Q8H [facility] Rx#:[id number] Output: Output, Urine Amount 750 / 750 0 / 750 0 / 750 Other: Number of Unmeasured Voids 0 0 Number of Bowel Movements 1 Weight 48.591 kg Patient Weight 04/06/23 23:59 Weight 48.591 kg Laboratory Results - last 24 hr 04/06/23 12:32: WBC 16.6 H, RBC 3.82 L, Hgb 10.9 L, Hct 35.5 L, MCV 92.8, MCH 28.6, MCHC 30.8 L, RDW 16.7, Plt Count 211 D, MPV 8.7, Neut % (Auto) 91.5 H, Lymph % (Auto) 5.5 L, [place] % (Auto) 2.9, Eos % (Auto) 0.1, Baso % (Auto) 0.1, Neut # (Auto) 15.2 H, Lymph # (Auto) 0.9, [place] # (Auto) 0.5, Eos # (Auto) 0.0, Baso # (Auto) 0.0, Total Counted 100, Neutrophils % (Manual) 82 H, Band Neutrophils % 11.0 H, Lymphocytes % (Manual) 6 L, Monocytes % (Manual) 1 L, Platelet Estimate Normal, RBC Morphology Normal, Anisocytosis 2+, Sodium 148 H, Potassium 4.7, Chloride 121 H, Carbon Dioxide 15 L, Anion Gap 16.7 H, BUN 57 H, Creatinine 2.00 H, Estimated Creat Clear 18, Estimated GFR 24 L, Est GFR ( Amer) 29 L, Glucose 153 H, Calcium 7.8 L I & O for Labs for Last 24 Hours: Intake & Output 04/03/23 04/04/23 04/05/23 04/06/23 23:59 23:59 23:59 23:59 Intake Total 100 / 100 1710 / 1710 1675 / 1675 O
[2023-04-07] VITALS (9 sets, daily range): BP systolic 92–130; BP diastolic 45–90; PULSE 81–110; RESP 18–33; TEMP 35.9–36.7; O2SAT 86–98; BMI 20.7
--- NOTE | 2023-04-07 07:35 | XR_ITS ---
FINAL REPORT CLINICAL HISTORY: increased O2 requirement COMPARISON: 04/05/2023 FINDINGS: SINGLE-VIEW CHEST The heart size is normal. The mediastinum is normal. The lungs are underinflated. There are increased right upper and left lower lobe airspace infiltrates. Small to moderate left effusion is increased. There is no pneumothorax. IMPRESSION: Findings consistent with progressive pneumonia. Reviewed, Interpreted and Dictated by Poli Mendes MD Transcribed by Faiza Mueller Authenticated and [facility]
--- NOTE | 2023-04-07 07:38 | EXP.ACUTE.PN ---
Subjective *Date: 04/07/23 *Time: 19:20 Interval history: Ms. Delgado remained on BiPAP overnight. Continue to require 80% for saturations in the 90s. Less responsive on exam this morning but showing agitation to BiPAP. Attempt made to transition to Vapotherm for improved comfort. Was transition to 100% Vapotherm at 40 L, maintain her saturations in the 90s for about an hour and then promptly had desaturations into the 70s and 60s. Patient remains afebrile today. No p.o. intake. Intolerant of p.o. medications. Blood pressures remained stable. Unable to obtain morning labs. Given her decline, had goals of care discussion with family. They would like to discontinue treatment measures and transition to comfort measures. Patient is DNR. Medical Exam Vital signs and Labs for Last 24 Hours: Vital Signs Temp Pulse Pulse Resp BP Pulse Ox O2 Del Method 04/07/23 06:25 101 H 04/07/23 06:25 101 H 04/07/23 06:25 91 L BiPAP 04/07/23 06:24 04/07/23 06:21 BiPAP 04/07/23 04:00 97.8 F 99 H 18 119/60 96 BiPAP 04/07/23 05:00 BiPAP 04/07/23 04:00 97 H 04/07/23 03:00 BiPAP 04/06/23 20:00 04/07/23 00:00 90 04/07/23 00:00 98.0 F 92 H 20 130/90 98 BiPAP 04/07/23 01:00 BiPAP 04/06/23 23:00 BiPAP 04/06/23 20:00 BiPAP 04/06/23 21:00 BiPAP 04/06/23 22:01 91 H 04/06/23 22:00 93 H 04/06/23 20:00 98.0 F 92 H 20 119/77 93 L BiPAP 04/06/23 20:01 85 04/06/23 20:01 95 H 04/06/23 18:52 04/06/23 18:52 84 04/06/23 18:51 97 H 04/06/23 18:04 CPAP 04/06/23 16:40 BiPAP 04/06/23 15:29 97.5 F L 87 18 111/56 L 99 BiPAP 04/06/23 15:00 CPAP 04/06/23 14:25 92 H 04/06/23 14:25 90 04/06/23 12:56 Vapotherm 04/06/23 08:00 95 CPAP 04/06/23 11:20 99.0 F 90 18 131/55 L 99 BiPAP 04/06/23 10:48 CPAP 04/06/23 09:00 CPAP 04/06/23 08:00 97.9 F 90 18 148/80 H 99 BiPAP O2 Flow Rate FiO2 04/07/23 06:25 04/07/23 06:25 04/07/23 06:25 80 04/07/23 06:24 80 04/07/23 06:21 04/07/23 04:00 04/07/23 05:00 04/07/23 04:00 04/07/23 03:00 04/06/23 20:00 80 04/07/23 00:00 04/07/23 00:00 04/07/23 01:00 04/06/23 23:00 04/06/23 20:00 04/06/23 21:00 04/06/23 22:01 04/06/23 22:00 04/06/23 20:00 04/06/23 20:01 04/06/23 20:01 04/06/23 18:52 40 04/06/23 18:52 04/06/23 18:51 04/06/23 18:04 04/06/23 16:40 04/06/23 15:29 34 40 04/06/23 15:00 04/06/23 14:25 04/06/23 14:25 04/06/23 12:56 40 04/06/23 08:00 04/06/23 11:20 04/06/23 10:48 04/06/23 09:00 04/06/23 08:00 28 40 Intake and Output 04/06/23 04/06/23 04/07/23 15:59 23:59 07:59 Intake Total 300 / 1775 100 / 1775 847 / 847 Output Total 0 / 1550 0 / 1550 900 / 900 Balance 300 / 225 100 / 225 -53 / -53 Intake: Intake, Oral Amount 0 / 0 Intake, Total IV Amount 300 / 1775 100 / 1775 847 / 847 Azithromycin 500 mg In 0.9 % 250 / 250 Sodium Chloride 250 ml @ 250 mls/hr IV Q24H [facility] Rx#:[id number] Cefepime HCl 1 gm In 0.9 % 50 / 100 50 / 100 Sodium Chloride 50 ml @ 100 mls /hr IV Q12H [facility] Rx#:[id number] Dex 5% in 0.45% NaCl 1,000 ml @ 747 / 747 75 mls/hr IV .[id number] [facility] Rx#: [id number] Magnesium Sulfate in Water 2 gm 50 / 50 In 50 ml @ 50 mls/hr IV [facility] Rx#:[id number] Metronidaz/Sod Chl 500 mg In 100 / 100 100 ml @ 100 mls/hr IV Q8H [facility] Rx#:[id number] Output: Output, Urine Amount 0 / 1550 0 / 1550 900 / 900 Other: Number of Unmeasured Voids 0 0 0 Weight 47.763 kg Patient Weight 04/07/23 23:59 Weight 47.763 kg Laboratory Results - last 24 hr 04/06/23 12:32: WBC 16.6 H, RBC 3.82 L, Hgb 10.9 L, Hct 35.5 L, MCV 92.8, MCH 28.6, MCHC
--- NOTE | 2023-04-07 09:21 | DIET.NUTRFU ---
Spoke to nursing today, patient is on vapotherm today but still too lethargic to eat. Nursing was unable to give pills this AM, she is not responsing enough to even use a straw. Provider plans to have a discussion with family today about goals of care. If family still wants aggressive tx may need to review enteral nutrition.
--- NOTE | 2023-04-07 10:03 | PC.NURSE ---
Addendum entered by Mary Rios RN 04/07/23 11:04: 1025 patient o2 sats decreased in to the 60s. on assessment patient has increased work of breathing, noted mucous membranes purple in color. replaced bipap and notified md and respiratory. attempted to call son at 1028 no answer, called sons who answered. updated son at that time of patients current condition. they were noted to be a couple hours away, but were headed this way. patient on bipap at this time. 92% sat Original Note: patient is less responsive than what was reported from previous day. will only open eyes with painful stimuli, guppy breathing noted. on vapotherm and sats are maintaining at this time. frequent oral care is being provided with frequent turns. skin assessment done no break down at this time but did note bruising to r side of abdomen, and middle of chest.
--- NOTE | 2023-04-07 11:25 | PC.NURSE ---
before antibiotics started patient IV was noted to have good blood return and flush, however upon recent check noted that iv had infiltrated. IV removed at that time.
--- NOTE | 2023-04-07 15:15 | PC.NURSE ---
RESPIRATORY CARE NOTE: PLACED PT ON 6L NC AND 15L,50% VENTI MASK AT THIS TIME PER
--- NOTE | 2023-04-07 17:40 | PC.NURSE ---
family is at bedside. some agitation once removed from bipap but has seemed to settle. family does not want to use the ativan at this time. family has refused turns, focusing on comfort at this time.
--- NOTE | 2023-04-08 00:12 | EXP.DEATH.NO ---
Documented by User: [email or web address] 04/08/23 00:29 Pronouncement Note Date and Time of Date of : 04/07/23 Time of : 23:58 PCOD Preliminary cause of : Respiratory arrest Contributing Factors (1) Acute on chronic respiratory failure with hypoxemia: (2) HCAP (healthcare-associated pneumonia): (3) Sepsis: (4) Hypernatremia: (5) HTN (hypertension): (6) Hyperkalemia: (7) Metabolic acidosis: (8) CKD (chronic kidney disease) stage 4, GFR 15-29 ml/min: Summary Additional details: Pt was transferred to hospice care yesterday morning. pt had respiratory failure secondary to pneumonia and COPD. DNR/DNI. Pt was taken off BIPAP and placed on 6 L NC during dayshift for comfort care. family at bedside. Pt passed peacefully @ 2358 on 04/07/2023. Absent radial pulse, no cardiac tones auscultated, and asystole on the telemetry box. Additional Data Confirmation of : no pulse, no respirations and no heart sounds Family: at bedside Attending/PCP notified?: Yes Attending physician: José Antonio Lopez MD Was code activated?: No Autopsy requested?: No latent print examiner notified?: No Organ bank notified?: Yes Advance directives: No Documented by User: José Antonio Lopez MD 04/08/23 08:03 Pronouncement Note PCOD Preliminary cause of : Respiratory arrest Contributing Factors (1) Acute on chronic respiratory failure with hypoxemia: (2) HCAP (healthcare-associated pneumonia): (3) Sepsis: (4) Hypernatremia: (5) HTN (hypertension): (6) Hyperkalemia: (7) Metabolic acidosis: (8) CKD (chronic kidney disease) stage 4, GFR 15-29 ml/min:
--- NOTE | 2023-04-08 00:29 | EXP.DEATH.DS ---
Documented by User: [email or web address] Rivera 04/08/23 01:27 Discharge Sum: Prov Provider Primary care physician: Nas Marques MD Visit Care Team Role Provider Type Nas Marques MD Primary Care Provider Staff Physician Jacquie Alcocer MD Emergency Provider ER Physician Pete Wade MD Admit Provider Physician Attending Provider Admitting clinician: Alex Phan Attending physician on admission: Pete Wade Consults: n/a Pronouncing clinician: Alex Phan Discharge Sum: Diag PCOD Cause of : Respiratory arrest Contributing Factors (1) Acute on chronic respiratory failure with hypoxemia: (2) HCAP (healthcare-associated pneumonia): (3) Sepsis: (4) Hypernatremia: (5) HTN (hypertension): (6) Hyperkalemia: (7) Metabolic acidosis: (8) CKD (chronic kidney disease) stage 4, GFR 15-29 ml/min: Discharge Sum: Summary Date and Time Date of admission: 04/04/23 18:32 Date of : 04/07/23 Time of : 23:58 Hospital Course prior to Hospital Course Information: 77 year old female admitted to the hospital on 04/04/23. ED work up revealed leukocytosis with WBC 14.2, anemia, VBG with pH 7.19, low bicarb (17.9), no hypercarbia or hypoxia on VBG. She was also started on solu-medrol, vancomycin, cefepime, and azithromycin. The ED physician consulted the hospitalist team for admission. The patient arrived to the medical floor on 6L and is still only alert to self. 04/05-> requiring BIPAP during sleeping. mental status improved and was able to eat and interact with staff. 04/06-> Pt's metabolic acidosis is worsening. Pt declining, unable to tolerate being taken off BIPAP. Started on oral bicarbonate. Requiring 90 % oxygen on BIPAP to maintain oxygen above 88%. Recieved 2 g magnesium IV without improvement. 04/07-> Transitioned to hospice care. Family at bedside. On 6L NC resting comfortable. Pt peacefully at 2358 with family at bedside. Not eligible for organ donation. Not a corner case. Summary Details: Pt was transferred to hospice care yesterday morning. pt had respiratory failure secondary to pneumonia and COPD. DNR/DNI. Pt was taken off BIPAP and placed on 6 L NC during dayshift for comfort care. family at bedside. Pt passed peacefully @ 2358 on 04/07/2023. Absent radial pulse, no cardiac tones auscultated, and asystole on the telemetry box. Additional Data Confirmation of as documented by pronouncing clinician: no pulse, no respirations and no heart sounds Family: at bedside Attending/PCP notified?: Yes Attending physician: José Antonio Lopez MD Was code activated?: No Autopsy requested?: No soft work wrapper layer and examiner notified?: No Organ bank notified?: Yes Advance directives: No Hospice patient?: Yes Documented by User: José Antonio Lopez MD 04/08/23 22:20 Discharge Sum: Diag Contributing Factors (1) Acute on chronic respiratory failure with hypoxemia: (2) HCAP (healthcare-associated pneumonia): (3) Sepsis: (4) Hypernatremia: (5) HTN (hypertension): (6) Hyperkalemia: (7) Metabolic acidosis: (8) CKD (chronic kidney disease) stage 4, GFR 15-29 ml/min: Discharge Sum: Summary Summary Details: Pt was transferred to hospice care on morning of 04/07/23. She had respiratory failure secondary to pneumonia, sepsis, and COPD. DNR/DNI. Pt was taken off BIPAP and placed on 6 L NC during dayshift for comfort care. family at bedside. Pt passed peacefully @ 2358 on 04/07/2023. Absent radial pulse, no cardiac tones auscultated, and asystole on the telemetry box.
== END 2023-04-07 23:58 | disposition expired | DRG 871 ==
LOC: ER 04:09 → 2ND 05:39
PROVIDERS: Nurse Practitioner Critical Care Medicine; Admitting Provider Internal Medicine; Emergency Provider Emergency Medicine; PCP Internal Medicine Adolescent Medicine; Visit Provider Internal Medicine
DX: A41.9 Sepsis, unspecified organism (principal); J18.9 Pneumonia, unspecified organism; J96.21 Acute and chronic respiratory failure with hypoxia; J44.1 Chronic obstructive pulmonary disease with (acute) exacerbation; E87.0 Hyperosmolality and hypernatremia; N18.4 Chronic kidney disease, stage 4 (severe); E87.20 Acidosis, unspecified; J44.0 Chronic obstructive pulmonary disease with (acute) lower respiratory infection; I13.0 Hypertensive heart and chronic kidney disease with heart failure and stage 1 through stage 4 chronic kidney disease, or unspecified chronic kidney disease; E87.5 Hyperkalemia; Y95 Nosocomial condition; I50.9 Heart failure, unspecified; Z66 Do not resuscitate; D63.1 Anemia in chronic kidney disease; F17.210 Nicotine dependence, cigarettes, uncomplicated; F01.50 Vascular dementia, unspecified severity, without behavioral disturbance, psychotic disturbance, mood disturbance, and anxiety; Z51.5 Encounter for palliative care
CPT/HCPCS: 36415; 51702; 70450; 71045; 80048; 80053; 80305; 80329; 81001; 82009; 82803; 83605; 83880; 84132; 84145; 84484; 85007; 85025; 85378; 87040; 93005; 93306; 93970; 94640; 94660; 94760; 94761; 99291; J0456; J0692; J3370; J3475